=== PATIENT | female | born 2000 | race Caucasian/White ===

== ENCOUNTER 2022-03-23 12:39 | Outpatient (CLI) | payer BC, SELFPAY ==
--- NOTE | 2022-03-23 13:00 | CRLHL7_ITS ---
For Patients: As a result of the Century Cures Act, medical imaging exams and procedure reports are released immediately into your electronic medical record. You may view this report before your referring provider. If you have questions, please contact your health care provider. INDICATION: 21 year-old female. Pelvic pain with menstrual periods. TECHNIQUE: Transabdominal and transvaginal pelvic ultrasound. FINDINGS: The uterus measures 7.0 x 3.5 x 5.2 cm. Normal endometrial stripe measuring 9 mm endovaginally. Normal size ovaries without torsion or mass. The right ovary measures 3.4 x 1.8 x 2.6 cm and the left ovary measures 4.2 x 1.8 x 3.3 cm. Blood flow is documented in the ovaries both arterial and venous. Minimal free pelvic fluid likely physiologic. IMPRESSION: Normal transabdominal and transvaginal pelvic ultrasound. Dictated by Tobias Mcnulty MD @ 03/23/2022 2:20:45 PM (Electronically Signed)
== END 2022-03-23 12:40 | disposition home or self-care (01) ==
LOC: US 12:42
PROVIDERS: Visit Provider Physician Assistant
DX: R10.2 Pelvic and perineal pain (principal)
CPT/HCPCS: 76830; 76856; 93976

== ENCOUNTER 2024-05-08 07:03 | Outpatient (CLI) | payer BC, SELFPAY | END 2024-05-08 07:04 | disposition home or self-care (01) | LOC: US 07:04 | PROVIDERS: Visit Provider Advanced Practice Midwife | DX: O34.81 Maternal care for other abnormalities of pelvic organs, first trimester (principal); N83.202 Unspecified ovarian cyst, left side; Z3A.00 Weeks of gestation of pregnancy not specified | CPT/HCPCS: 76817; 83021; 86703; 86706; 86803; 86850; 86900; 86901; 87086; 87340 ==

== ENCOUNTER 2024-05-08 08:38 | Outpatient (CLI) | payer BC, SELFPAY | END 2024-05-08 08:39 | disposition home or self-care (01) | PROVIDERS: Visit Provider Advanced Practice Midwife | DX: Z34.01 Encounter for supervision of normal first pregnancy, first trimester (principal) | CPT/HCPCS: 83020; 83021; 85660; 86592; 86703; 86704; 86706; 86762; 86787; 86803; 86850; 86900; 86901; 87086; 87340 ==

== ENCOUNTER 2024-08-03 11:06 | Outpatient (CLI) | payer BC, SELFPAY ==
--- NOTE | 2024-08-03 11:15 | CRLHL7_ITS ---
For Patients: As a result of the Century Cures Act, medical imaging exams and procedure reports are released immediately into your electronic medical record. You may view this report before your referring provider. If you have questions, please contact your health care provider. OBSTETRICAL ULTRASOUND ??? ANATOMY SURVEY, 08/03/2024 INDICATION: anatomy survey. 1, para 0. CLINICAL HISTORY: SYLVIE by ultrasound: 12/23/2024 Gestational age: 19 weeks 5 days TECHNIQUE: Real-time stone-scale transabdominal imaging of the fetus was performed. PREVIOUS ULTRASOUND: 05/08/2024. FINDINGS: position: Multiple positions. Cervix: Visualized Technique: Transabdominal Length of closed cervix: 5.9 cm Placenta position: Posterior Technique: Transabdominal Placenta tip to internal os: 6.2 cm Umbilical cord: 3-vessel cord Placental insertion: Possibly velamentous Amniotic fluid: 3.7 cm SDP (greater than/equal to 2 to less than 8 cm) ANATOMY SURVEY: Observed Structures Cerebellum: Yes; 1.9 cm, 19 weeks 2 days Cisterna magna: Yes; 4.4 mm Nuchal fold: Yes; 4.5 mm Lateral ventricle: Yes; 5.7 mm CSP: Yes Midline falx: Yes Choroid plexus: Yes Spine: Yes Stomach: Yes Abdominal cord insert: Yes Urinary bladder: Yes Kidneys: Yes Diaphragm: Yes Nose/lips: Yes Orbital view: Yes Profile: Yes Upper extremities: Yes Lower extremities: Yes Hands: Yes Feet: Yes 4-chamber heart: Yes LVOT: Yes RVOT: Yes 3VV: Yes 3VTV: Yes BIOMETRY BPD: 4.3 cm, 19 weeks 0 days, 22% HC: 17.0 cm, 19 weeks 4 days, 37% AC: 15.7 cm, 20 weeks 6 days, 79% FL: 3.1 cm, 19 weeks 4 days, 36% FL/AC: 19.67% HC/AC ratio: 1.08 heart rate: 137 bpm age by this ultrasound: 19 weeks 4 days SYLVIE by this ultrasound: 12/24/2024 Estimated weight: 333.48 grams (0 pounds 12 ounces) Percentile by SYLVIE: 69% IMPRESSION: 1) Concordance of clinical and sonographic dating. 2) Normal anatomic survey. 3) Velamentous placental cord insertion is suggested. Follow-up recommended. HARRISON BEAR M.D. Diagnostic Radiologist [email or web address] Transcribed: 9:[address]/Dictated by: Harrison Bear MD @ 08/07/2024 5:46:00 AM (Electronically Signed)
== END 2024-08-03 11:07 | disposition home or self-care (01) ==
LOC: US 11:07
PROVIDERS: Visit Provider Midwife
DX: Z34.92 Encounter for supervision of normal pregnancy, unspecified, second trimester (principal); Z3A.19 19 weeks gestation of pregnancy
CPT/HCPCS: 76805

== ENCOUNTER 2024-08-16 12:00 | Outpatient (CLI) | payer BC, SELFPAY ==
--- NOTE | 2024-08-16 12:15 | CRLHL7_ITS ---
For Patients: As a result of the Cures Act, medical imaging exams and procedure reports are released immediately into your electronic medical record. You may view this report before your referring provider. If you have questions, please contact your health care provider. OB ULTRASOUND SYLVIE by US: . GA: 21 w, 4 d. Single. Comparison: 08/03/2024, 05/08/2024. INDICATION: Follow-up cord insertion to placenta, velamentous? TECHNIQUE: Real time grayscale imaging of the fetus was performed. Transabdominal. CERVIX: Not visualized. POSITIONING: Vertex. AMNIOTIC FLUID: 3.7 cm. SDP (N: greater than 2 x 1 cm) PLACENTA: Technique: Transabdominal. PLACENTA POSITION: Posterior. DOPPLER: heart rate: 149 bpm. IMPRESSION: The placental cord insertion is velamentous. Harrison Grant M.D. Diagnostic Radiologist [email or web address] RAMSES/km barbour/Dictated by: Harrison Grant MD @ 08/16/2024 2:17:00 PM (Electronically Signed)
== END 2024-08-16 12:01 | disposition home or self-care (01) ==
LOC: US 12:00
PROVIDERS: Visit Provider Advanced Practice Midwife
DX: O43.192 Other malformation of placenta, second trimester (principal); Z3A.21 21 weeks gestation of pregnancy
CPT/HCPCS: 76816

== ENCOUNTER 2024-10-09 11:45 | Outpatient (CLI) | payer BC, SELFPAY ==
--- NOTE | 2024-10-09 12:15 | CRLHL7_ITS ---
For Patients: As a result of the Century Cures Act, medical imaging exams and procedure reports are released immediately into your electronic medical record. You may view this report before your referring provider. If you have questions, please contact your health care provider. OB ULTRASOUND SYLVIE by US: 12/23/2024. GA: 29 w, 2 d. Single. Comparison: 08/03/2024. INDICATION: Velamentous cord insert. TECHNIQUE: Real time grayscale imaging of the fetus was performed. Transabdominal. CERVIX: Not visualized. POSITIONING: Vertex. AMNIOTIC FLUID: 3.6 cm. SDP (N: greater than 2 x 1 cm) PLACENTA: Technique: Transabdominal. PLACENTA POSITION: Fundal, posterior. DOPPLER: heart rate: 141 bpm. BIOMETRY: BPD: 7.7 cm. 31 w, 0 d, 88 percent. HC: 27.2 cm. 29 w, 5 d, 29 percent. AC: 24.4 cm. 28 w, 4 d, 25 percent. FL: 5.5 cm. 28 w, 6 d, 22 percent. FL/AC ratio: 22.35 percent. HC/AC ratio: 1.12. EFW: 1313 g. Weight: 2 lbs, 14 oz. age by this US: 29 w, 4 d. SYLVIE by this US: 12/21/2024. Percentile by SYLVIE: 26 percent. IMPRESSION: 1. Sonographic gestational age 29 weeks 4 days and sonographic due date 12/21/2024. Good correlation with dates. Normal interval growth. 2. Estimated weight 26th percentile. Abdominal circumference 25th percentile. Harrison Grant M.D. Diagnostic Radiologist [email or web address] RAMSES/km barbour/Dictated by: Harrison Grant MD @ 10/09/2024 4:01:00 PM (Electronically Signed)
== END 2024-10-09 11:46 | disposition home or self-care (01) ==
LOC: US 11:45
PROVIDERS: Visit Provider Advanced Practice Midwife
DX: O43.123 Velamentous insertion of umbilical cord, third trimester (principal); Z3A.29 29 weeks gestation of pregnancy
CPT/HCPCS: 76816; 86592; 86850; J2791

== ENCOUNTER 2024-11-02 12:53 | Outpatient (CLI) | payer BC, SELFPAY ==
--- NOTE | 2024-11-02 13:00 | CRLHL7_ITS ---
For Patients: As a result of the Century Cures Act, medical imaging exams and procedure reports are released immediately into your electronic medical record. You may view this report before your referring provider. If you have questions, please contact your health care provider. OB ULTRASOUND SYLVIE by US: 12/23/2024. GA: 32 w, 5 d. Single. Comparison: 10/09/2024, 08/16/2024, 08/03/2024. INDICATION: Growth. Velamentous cord insert. TECHNIQUE: Real time grayscale imaging of the fetus was performed. Transabdominal. CERVIX: Not visualized. POSITIONING: Vertex. AMNIOTIC FLUID: 5.0 cm. SDP (N: greater than 2 x 1 cm) PLACENTA: Technique: Transabdominal. PLACENTA POSITION: Posterior, left wall. DOPPLER: heart rate: 135 bpm. BIOMETRY: BPD: 8.6 cm. 34 w, 6 d, 92.5 percent. HC: 30.6 cm. 34 w, 0 d, 47.9 percent. AC: 29.6 cm. 33 w, 4 d, 74.7 percent. FL: 5.9 cm. 31 w, 0 d, 5.5 percent. FL/AC ratio: 20.1 percent. HC/AC ratio: 1.0. EFW: 2092 g. Weight: 4 lbs, 10 oz. age by this US: 33 w, 3 d. SYLVIE by this US: 12/18/2024. Percentile by SYLVIE: 48.5 percent. IMPRESSION: 1. Sonographic gestational age 33 weeks 3 days and sonographic due date 12/18/2024. Sonographic age is 5 days ahead of clinical age. 2. Estimated weight 49th percentile. Abdominal circumference 75th percentile. Femur length 6th percentile. Hrarison Grant M.D. Diagnostic Radiologist [email or web address] RAMSES/km barbour/Dictated by: Harrison Grant MD @ 11/02/2024 2:16:00 PM (Electronically Signed)
== END 2024-11-02 12:54 | disposition home or self-care (01) ==
LOC: US 12:53
PROVIDERS: Visit Provider Advanced Practice Midwife
DX: O43.193 Other malformation of placenta, third trimester (principal); Z3A.33 33 weeks gestation of pregnancy
CPT/HCPCS: 76816

== ENCOUNTER 2024-11-07 19:04 | Emergency (ER) | payer BC, SELFPAY ==
--- OUTSIDE RECORDS SUMMARY | 2024-11-07 19:06 | XMS_ITS | Clinical Summary ---
Author Organization [facility] [employer] [facility] Address [address] [place] [id number] Care Team Providers Care Senior Integration Developer Name Role Phone [facility] Primary Care Pro vider Allergies No known active allergies Medications metoclopramide HCl (REGLAN) 10 mg tabletIndication s:Nonintractable headache, unspecified chronicity pattern, unspecified headache type Take 1 Tablet (10 mg) by mouth every 6 hours if needed for Nausea/Vomiting (or headache). 30 Tablet 3 Active Additional Information Patient not taking.Reported on 09/14/2024 [id number] ic acid (PREPLUS;NATALCA RE PLUS) 27 mg iron- 1 mg tablet Take 1 Tablet by mouth once daily. 4 Active Active Problems Estimated Date of Delivery Comme nts Yes 12/24/2024 No known active problems Encounters Date Type Department Care Team Description 09/15/2024 Telephone [facility] [address] [phone] Jackelyn Santos Appointment 09/14/2024 1:20 PM CDT Ancillary Procedure [address] [phone] 09/14/2024 12:40 PM CDT Office Visit [facility] [address] [place] [phone] Ariana Márquez NP Ankle Pain/problem (Twisted left ankle/heard poppingsound while stepping down from a log on 09/09/24. ) 09/14/2024 Travel from Last 3 Months Social History Tobacco Use Types Packs/Day Years Used Date Smoking Tobacco: Former Cigarettes Smokeless Tobacco: Never Tobacco Cessation:Counseling Given: Not Answered Alcohol Use Standard Drinks/Week Comments Never 0 (1 standard drink = 0.6 oz pur e alcohol) Social Connections Answer Date Recorded Do you often feel lonely or isolated from those around you? 0 11/02/2023 Financial Resource Strain Answer Date R ecorded Difficulty of Paying Living Expenses 3 11/02/2023 Difficulty of Paying Living Expenses Not on file 11/02/2023 Food Insecurity Answer Date Recorded Do you worry your food will run out before you are able to buy more? 1 11/02/2023 Transportation Needs Answer Date Record ed Does lack of transportation keep you from medica l appointments? 1 11/02/2023 Does lack of transportation keep you from work, meetings or getting things that you need? 1 11/02/2023 Housing Stability Answer Date Recorded What is your housing situation today? 1 11/02/2023 Utilities Answer Date Recorded Do you have trouble paying f or utilities (for example, heat, electricity, water, phone)? 1 11/02/2023 Estimated Date of Delivery Comme nts Yes 12/24/2024 Sex and Gender Information Value Date Recorded Sex Assigned at Not on file Legal Sex Female 7:16 AM CDT Gender Identity Not on file Sexual Orientation Not on file Obstetrics History Para Term AB IAB SAB Ectopic Multiple Livin g Live Births 1 Date Outcome GA Total Labor Labor/2nd/3rd Weight Sex Type Anes PTL Mary Jo A1 A5 Name Clin Current Last Filed Vital Signs Vital Sign Reading Time Taken Comments Blood Pressure 137/77 09/14/2024 12:48 PM CDT Pulse 82 09/14/2024 12:48 PM CDT Temperature 36.1 C (97 F) 09/14/2024 12:48 PM CDT Respiratory Rate 16 09/14/2024 12:4 8 PM CDT Oxygen Saturation 98% 09/14/2024 12: 48 PM CDT Inhaled Oxygen Concentration - - Weight 84.3 kg (185 lb 14.4 oz) 025 12:48 PM CDT Height 165.1 cm (5' 5) 06/25/2022 8:01 AM CDT Body Mass Index - - Plan of Treatment Health Maintenance Due Date Last Done Comments Tetanus booster 2012 Depression screening for age 12+ 2013 HIV for age 15-65 2016 HPV series for age 9-45 (1 - 3-dose series) 2016 Chlamydia for age 16-24 2017 BMI (ht and wt on same day) for age 18+ 08/31/2019 Hepatitis C screening for ag e 18-79 08/31/2019 Hepatitis B series for 19+ ( 1 of 3 - 19+ 3-dose series) 2020 Pap test for age 21-65 2022 COVID-19 vaccine series ( - season) 2024 Influenza Vaccine (#1) 2024 RSV vaccine for adults or (1 - Risk 1-dose series) 10/30/2024 Pneumococcal series for age 6-49 Aged Out No longer eligible based on patient's age to complete this topic Procedures Procedure Name Priority Date/Time Associated Diagnosis Comments AMB PROC DOC ORTHOPEDIC INJURY Routine 09/14/2024 6:20 PM CDT Closed nondisplaced fracture of neck of left talus, initial encounter XR ANKLE 3 VIEWS LEFT STAT 09/14/2024 1:30 PM CDT Acute left ankle pain from Last 3 Months Results * Ortho Injury (09/14/2024 6:20 PM CDT) Narrative Ariana Márquez NP - 09/14/2024 6:20 PM CDT Ariana Márquez NP 09/14/2024 6:23 PM Ortho Injury Date/Time: 09/14/2024 6:20 PM Performed by: Ariana Márquez NP Authorized by: Ariana Márquez NP Injury location: ankle Location details: left ankle Injury type: fracture (There is a 2 mm focus of ossification adjacent to but separate from the talar neck on the lateral view which may represent an avulsion fracture fragment) Pre-procedure distal perfusion: normal Pre-procedure neurological function: normal Pre-procedure range of motion comment: Full, painful Splint type: short leg (CAM boot) Post-procedure distal perfusion: normal Patient tolerance: patient tolerated the procedure well with no immediate complications us Ariana Márquez ASSISTANT FRONT DESK MANAGER PROCEDURE ORD Final Result * XR ANKLE 3 VIEWS LEFT (09/14/2024 1:30 PM CDT) Anatomical Region Laterality Modality ANKLES, ANKLE L Computed Radiogr aphy 09/14/2024 1:36 PM CDT Impressions 09/14/2024 1:36 PM CDT There is a 2 mm focus of ossification adjacent to but separate from the talar neck on the lateral view which may represent an avulsion fracture fragment. Correlation with focal point tenderness on exam is recommended. Anterolateral periarticular soft tissue swelling. Dictated by Rafita Pop MD @ 09/14/2024 1:36:09 PM (Electronically Signed) Narrative 09/14/2024 1:36 PM CDT For Patients: As a result of the Cures Act, medical imaging exams and procedure reports are released immediately into your electronic medical record. You may view this report before your referring provider. If you have questions, please contact your health care provider. INDICATION: Acute pain. COMPARISON: None available. TECHNIQUE: Three views of the left ankle. FINDINGS: Mineralization: Normal. Alignment: Normal. Bones and Joints: There is a 2 mm focus of ossification adjacent to but separate from the talar neck on the lateral view which may represent an avulsion fracture fragment. Correlation with focal point tenderness on exam is recommended. Soft Tissues: Anterolateral periarticular soft tissue swelling. Procedure Note Rafita Pop MD - 09/14/2024 For Patients: As a result of the Cures Act, medical imagingexams and procedure reports are released immediately into your electronicmedical record. You may view this report before your referring provider.If you have questions, please contact your health care provider. INDICATION: Acute pain. COMPARISON: None available. TECHNIQUE: Three views of the left ankle. FINDINGS: Mineralization: Normal. Alignment: Normal. Bones and Joints: There is a 2 mm focus of ossification adjacent to butseparate from the talar neck on the lateral view which may represent anavulsion fracture fragment. Correlation with focal point tenderness onexam is recommended. Soft Tissues: Anterolateral periarticular soft tissue swelling. IMPRESSION: There is a 2 mm focus of ossification adjacent to but separate from thetalar neck on the lateral view which may represent an avulsion fracturefragment. Correlation with focal point tenderness on exam is recommended.Anterolateral periarticular soft tissue swelling. Dictated by Rafita Pop MD @ 09/14/2024 1:36:09 PM (Electronically Signed) Ariana Márquez NP GENERAL IMAGING Final Result from Last 3 [id number] [facility] Care Teams Senior Integration Developer Relationship Specialty Start Date End Date Clinic, [address] [place] [address] PCP - General 06/25/22
[2024-11-07 19:15] VITALS: BP 128/83; PULSE 117; RESP 20; TEMP 37; O2SAT 98; BMI 32.4
--- NOTE | 2024-11-07 20:02 | ED_ITS ---
HPI - General Adult General Date Seen: 11/07/24 Chief complaint: Lower Extremity Swelling Stated complaint: L leg swelling - 32 weeks Time Seen by Provider: 11/07/24 19:57 History of Present Illness HPI narrative: 24-year-old female who is 33 weeks presenting to the ER today with left leg swelling that began this afternoon. She presents to the ER today with her . She says that her has been going well so far. She has n ot had any trouble with the baby growing. No concern for peripheral edema, preeclampsia, or other complications. She has been feeling the baby kicking normally lately. No vaginal bleeding or fluid leakage. She has been getting her care through the [facility]. Beginning this afternoon she was out for walk and she started to feel like her left leg was painful, stretch tight, and swollen. It was more swollen than her right leg. Eyelid she has been resting for a little while it is actually doing better but is still feels little bit swollen and tight. She does not have any known injury. She has not noticed any bruising. No rash. She is not having any chest pain or shortness of breath. No abdominal pain. She has been having a little bit of pain in her left hip and lower Potter left low back for a couple of days. Related Data Previous Rx's ?Medication ?Instructions ?Recorded ondansetron 4 mg disintegrating 4 mg PO Q8H PRN nausea and 05/23/24 tablet vomiting #30 tabs ondansetron HCl 4 mg tablet 4 mg PO Q6H PRN nausea and 06/05/24 vomiting #30 tabs enoxaparin 80 mg/0.8 mL 80 mg (0.8 mL) subcut Q12H 7 days 11/07/24 subcutaneous syringe (Lovenox) #11.2 mL Allergies Allergy/AdvReac Type Severity Reaction Status Date / Time No Known Drug Allergies Allergy Verified 11/02/24 13:26 [facility] Medical History (Updated 11/07/24 @ 23:12 by Salvador Triplett MD) Depression ?F32.A - Depression, unspecified (ICD-10) Pelvic pain ?R10.2 - Pelvic and perineal pain (ICD-10) Dysmenorrhea ?N94.6 - Dysmenorrhea, unspecified (ICD-10) 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 ? Education: High School ? 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 works at [employer] Lives with: Chandler Pets: 3 Cats, Chandler changes the litter box Abuse: Denies past ? Unable to assess current, partner present? ? Special Diet: Denies? ? Ok with a blood transfusion: yes? ? Culture or mormon beliefs: denies? RISK FACTORS? ? Exercise Times/wk: 5 days week cardio and strength training? ? Depression/Anxiety: yes depression? Previous Treatments was on medications for about a year ? Therapy has done in past Feels mood is stable at this time. MYLES: 3 PHQ 9: 1? ? Seat Belt Use: Routinely ? Smoking: Denies past/present? ?Smoked 2 years, 3 cigarettes per day and vaping Alcohol/day: Denies while ? ? when not 4-5 a month Caffeine: Coffee before 1-2 cups? ? Drug Use: Denies past/present? ? THC use in past, quit about 2 years ago What is your current living situation?: I presently have a place to live Problems where you live: no known problems In the past 12 months, utilities in danger of being shut off: no In past 12 months, lack of transportation kept you from medical appts, meetings, work, or getting things needed for daily living: no In the past 12 mos, have been you worried that your food would run out before you had money to buy more?: never true In the past 12 mos, the food you bought just didn't last and you didn't have money to buy more?: never true Smoking Status: Never smoker How often does anyone, including family, friends and others, physically hurt you : never How often does anyone, including family, friends and others, insult or talk down to you: never How often does anyone, including family, friends and others, threaten you with harm: never How often does anyone, including family, friends and others, scream or curse at you: never Exam Narrative: Exam Narrative: Constitutional: Appears well-developed and well-nourished. Alert. Conversant. Non toxic. HENT: Head: Atraumatic. Nose: Nose normal. Mouth/Throat: Oral mucosa is clear and moist. no trismus. Pharynx normal. Eyes: Conjunctivae normal. EOM normal. Pupils equal, round, and reactive to light. No scleral icterus. Neck: Normal range of motion. Neck supple. No tracheal deviation present. Cardiovascular: Normal rate, regular rhythm. No gallop. No friction rub. No murmur heard. Symmetric radial artery pulses Pulmonary/Chest: Effort normal. No stridor. No respiratory distress. No wheezes. No rales. No rhonchi . No tenderness. Abdominal: Soft. Bowel sounds normal. No distension. Nontender gravid uterus with fundus well above the umbilicus consistent with dates.. No tenderness. No rebound. No guarding. Musculoskeletal: RUE: Normal range of motion. No tenderness. No deformity LUE: Normal range of motion. No tenderness. No deformity RLE: Normal range of motion. No edema. No tenderness. No deformity LLE: Normal range of motion. Trace edema. No tenderness. No deformity Lymph: No inguinal adenopathy. Neurological: Alert and oriented to person, place, and time. Normal strength. CN II-VII intact. No sensory deficit. GCS eye subscore is 4. GCS verbal subscore is 5. GCS motor subscore is 6. Normal coordination Sensory: Normal light touch sensation bilaterally on the anteromedial thigh (L3), medial malleolus (L4), dorsal first web space (L5), lateral malleolus (S1). Strength: 5/5 strength hip flexors (L3) on the rig ht and left 5/5 strength in the quadriceps (L4) on t he right and left 5/5 strength in the tibialis anterior 5/5 strength in the EHL (L5) on the righ t and left 5/5 strength in the gastrocnemius (S1) o n the right and left 5/5 strength in the hamstring on the rig ht and left Negative straight leg raise bilaterally. Skin: Skin is warm and dry. No redness, cyanosis, bruising or other rash. No rash noted. No pallor. Normal capillary refill. Psychiatric: Normal mood. Normal affect. Const: Vital Signs, click to edit/add: Vital Signs - 24 hr 11/07/24 19:15 Temperature 98.6 F Pulse Rate [Pulse Oximeter] 117 H Respiratory Rate 20 Blood Pressure [Ri ght Upper Arm] 128/83 Pulse Oximetry 98 Course Vital Signs Vital signs: Initial Vital Signs Temperature 98.6 F 11/07/24 19:15 Temperature Source Temporal Artery Scan 11/07/24 19:15 Pulse Rate 117 H 11/07/24 19:15 Respiratory Rate 20 11/07/24 19:15 Blood Pressure 128/83 11/07/24 19:15 Blood Pressure Mean 98 11/07/24 19:15 Blood Pressure Position Sitting 11/07/24 19:15 Pulse Oximetry 98 11/07/24 19:15 Vital Signs Temperature 98.6 F 11/07/24 19:15 Pulse Rate 117 H 11/07/24 19:15 Respiratory Rate 20 11/07/24 19:15 Blood Pressure 128/83 11/07/24 19:15 Pulse Oximetry 98 11/07/24 19:15 Temperature 98.6 F 11/07/24 19:15 Pulse Rate 117 H 11/07/24 19:15 Respiratory Rate 20 11/07/24 19:15 Blood Pressure 128/83 11/07/24 19:15 Pulse Oximetry 98 11/07/24 19:15 Medical Decision Making [facility] Narrative Medical decision making narrative: This is a previously healthy 24-year-old female who is 33 weeks presenting to the ER today with atraumatic left lower extremity swelling and discomfort that began this evening. Differential includes DVT, compression from growing uterus, peripheral edema from eclampsia, cellulitis, trauma, among others. Primary differential is to determine whether not this is a DVT given the asymmetric/unilateral swelling or if this is simply due to urine compression. Venous ultrasound is suggestive for DVT in the proximal left lower extremity. Discussed by phone with the radiologist and reviewed in person with the electrical engineering technician who did ultrasound. Discussed with our OB colleague, Dr. Chang. She would agree with the patient starting on Lovenox 1 milligram/kilogram b.i.d based on pre weight.. She does not feel the patient needs stress testing, admission, further lab workup tonight. First dose of Lovenox administered here in the ER. Patient reports pre weight of around 170 which correlates to about 77 kg. Will start her on 80 milligram Lovenox b.i.d.. Prescription for a 1 week supply. Discussed that she needs close outpatient follow-up with the Ob clinic to discuss her DVT, and make arrangements for anticoagulation going forward. She will need to continue on anticoagulation until the end of and likely after for couple of months. Duration to be determined by her follow-up with OB. She is not having any chest pain or shortness of breath suggest PE. I do not triage heart rate is elevated but that is likely due to combination of being 3rd trimester and having anxiety. Oxygen saturations are normal on room air. Will hold off on CT tPA given the very low likelihood of actual PE and the risk of radiation exposure at this stage of . We are going to treat with anticoagulation because of DVT, regardless of the CT findings. I do not see any evidence to necessitate transfer for thrombectomy or admission of IV thrombolytic. Risk of bleeding reviewed. However at this point, we feel of the risk of untreated DVT leading to PE or other complications clearly outweighs the risk. Precautions for return to the ER reviewed. Questions answered. Imaging Data US venous LLE: Attestation: I have reviewed the pertinent imaging results. Radiologist's impression: IMPRESSION: Findings concerning for deep venous thrombosis within the left external iliac vein extending to the left common femoral vein. The lower IVC appears patent. Findings discussed with Dr. Triplett at 8:54 PM PST on 11/07/2024. Discharge Plan Discharge Clinical Impression: DVT (deep vein thrombosis) in Patient Disposition: Home, Self-Care Condition: Stable Instructions: Deep Vein Thrombosis (ED) Additional Instructions: As we discussed, please take your next dose of the blood thinning medication (Lovenox) tomorrow morning and continue it twice daily every day until your OB says it is safe to stop. Call your OB clinic tomorrow morning to arrange an ER follow-up visit within 1-2 days. Remember, come back to the ER any time if you have worsening symptoms such as increasing pain or swelling in your leg, chest pain or trouble breathing, vaginal bleeding, uterine cramping, or any problems. Prescriptions: New enoxaparin [Lovenox] 80 mg/0.8 mL syringe 80 mg subcut Q12H 7 Days Qty: 11.2 0RF No Action ondansetron HCl 4 mg tablet 4 mg PO Q6H PRN (Reason: nausea and vomiting) Qty: 30 1RF ondansetron 4 mg tablet,disintegrating 4 mg PO Q8H PRN (Reason: nausea and vomiting) Qty: 30 2RF Follow Up/Referrals: Provider,Not a Local [Primary Care Provider, Family Practice] Stand Alone Forms: MyHealth Info Instructions
--- NOTE | 2024-11-07 20:03 | CRLHL7_ITS ---
For Patients: As a result of the Century Cures Act, medical imaging exams and procedure reports are released immediately into your electronic medical record. You may view this report before your referring provider. If you have questions, please contact your health care provider. INDICATION: Edema in the left lower extremity, 3rd trimester . TECHNIQUE: Ultrasound venous duplex lower left extremity. Compression venous exam was performed using stone-scale, color Doppler, and spectral Doppler analysis. COMPARISON: None. FINDINGS: Deep veins: There is no color Doppler flow within the left common femoral and left external iliac vein. Normal vascular flow with compressibility is visualized within the superficial femoral, popliteal, peroneal, and posterior tibial veins on the left. Patent right common femoral vein. The lower IVC is patent. Superficial veins: Greater saphenous vein is fully compressible. No popliteal cyst. IMPRESSION: Findings concerning for deep venous thrombosis within the left external iliac vein extending to the left common femoral vein. The lower IVC appears patent. Findings discussed with Dr. Triplett at 8:54 PM PST on 11/07/2024. Dictated by Salvador Collins MD @ 11/07/2024 10:51:33 PM (Electronically Signed)
[2024-11-07] MEDS: ENOXAPARIN 80 MG/0.8 ML INJ SUBCUT (23:34)
== END 2024-11-07 23:45 | disposition home or self-care (01) ==
PROVIDERS: Emergency Provider Emergency Medicine
DX: I82.422 Acute embolism and thrombosis of left iliac vein (principal); Z3A.33 33 weeks gestation of pregnancy
CPT/HCPCS: 93971; 99282; 99283; J1650

== ENCOUNTER 2024-11-08 10:30 | Outpatient (CLI) | payer BC, SELFPAY ==
--- OUTSIDE RECORDS SUMMARY | 2024-11-08 10:06 | XMS_ITS | Clinical Summary ---
Author Organization [facility] [employer] [facility] Address [address] [place] [id number] Care Team Providers Care Force Dispatcher Name Role Phone [facility], [facility] Pro vider Allergies No known active allergies Medications metoclopramide HCl (REGLAN) 10 mg tabletIndication s:Nonintractable headache, unspecified chronicity pattern, unspecified headache type Take 1 Tablet (10 mg) by mouth every 6 hours if needed for Nausea/Vomiting (or headache). 30 Tablet 3 Active Additional Information Patient not taking.Reported on 09/14/2024 [id number] ic acid (PREPLUS;NATALCA RE PLUS) 27 mg iron- 1 mg tablet Take 1 Tablet by mouth once daily. 4 Active Active Problems Estimated Date of Delivery Comme nts Yes 12/24/2024 No known active problems Encounters Date Type Department Care Team Description 09/15/2024 Telephone [facility] Orthopedics [facility] [address] [phone] Jackelyn Santos Appointment 09/14/2024 1:20 PM CDT Ancillary Procedure [address] [phone] 09/14/2024 12:40 PM CDT Office Visit [facility] [address] [place] [phone] Ariana Márquez NP Ankle Pain/problem (Twisted [...] with no immediate complications us Ariana Márquez CUSTOMER SUPPORT ANALYST PROCEDURE ORD Final Result * XR ANKLE [...] Final Result from Last [place] [id number] [facility] Care Teams Force Dispatcher Relationship Specialty Start Date End Date Clinic, [address] [place] [address] PCP - General 06/25/22
[2024-11-08 10:15] VITALS: BP 128/82; PULSE 98; RESP 18; TEMP 36.2; O2SAT 100
[2024-11-08] MEDS: ENOXAPARIN 80 MG/0.8 ML INJ SUBCUT (10:46)
== END 2024-11-08 11:00 | disposition home or self-care (01) ==
LOC: EDOUT 10:39
PROVIDERS: Visit Provider Family Medicine
DX: O22.33 Deep phlebothrombosis in pregnancy, third trimester (principal); Z3A.33 33 weeks gestation of pregnancy
CPT/HCPCS: 80307; J1650

== ENCOUNTER 2024-11-09 17:25 | Emergency (ER) | payer BC, SELFPAY ==
--- OUTSIDE RECORDS SUMMARY | 2024-11-09 17:27 | XMS_ITS | Clinical Summary ---
Author Organization [facility] [employer] [facility] Address [address] [place] [id number] Care Team Providers Care Coffee Weigher Name Role Phone [facility], [facility] Primary Care Pro vider Allergies No known active allergies Medications metoclopramide HCl (REGLAN) 10 mg tabletIndication s:Nonintractable headache, unspecified chronicity pattern, unspecified headache type Take 1 Tablet (10 mg) by mouth every 6 hours if needed for Nausea/Vomiting (or headache). 30 Tablet 3 Active Additional Information Patient not taking.Reported on 09/14/2024 ocngndr-[id number] ic acid (PREPLUS;NATALCA RE PLUS) 27 mg iron- 1 mg tablet Take 1 Tablet by mouth once daily. 4 Active Active Problems Estimated Date of Delivery Comme nts Yes 12/24/2024 No known active problems Encounters Date Type Department Care Team Description 09/15/2024 Telephone [facility] Orthopedics [facility] [address] [phone] Jackelyn Santos Appointment 09/14/2024 1:20 PM CDT Ancillary Procedure [address] [phone] 09/14/2024 12:40 PM CDT Office Visit [facility] [address] [place] [phone] Ariana Márquez NP Ankle Pain/problem (Twisted [...] with no immediate complications us Ariana Márquez BIOPROCESSING MANUFACTURING TECHNICIAN PROCEDURE ORD Final Result * XR ANKLE [...] Final Result from Last 3 [place] [id number] [facility] Care Teams Coffee Weigher Relationship Specialty Start Date End Date Clinic, [address] [place] [address] PCP - General 06/25/22
[2024-11-09 17:57] VITALS: BP 136/94; PULSE 115; RESP 18; TEMP 37.4; O2SAT 98; BMI 33.3
--- NOTE | 2024-11-09 19:13 | ED_ITS ---
HPI - General Adult General Date Seen: 11/09/24 Chief complaint: Extremity Pain/Injury, Lower Stated complaint: blood clot pain, 33 wks preg Time Seen by Provider: 11/09/24 18:54 History of Present Illness HPI narrative: Patient is a 24-year-old seen here yesterday and diagnosed with a DVT on the left side in the external iliac and common femoral. She was started on Lovenox which she has been taking as prescribed. She has not been taking anything for pain. She says her discharge instructions said she should come back if the pain was increasing, and she thought it felt a little bit more painful tonight, particularly when she walks. Therefore, she came back to be rechecked. She has not noted any worsening swelling or redness, she has not had any chest pain shortness of breath. She was little tachycardic when she was here yesterday and she remains a little tachycardic today. She has been eating and drinking well. This is her 1st , she does not have prior history of DVT. She does not smoke. She is not having any abdominal pain, headache, or other symptoms. Related Data Previous Rx's ?Medication ?Instructions ?Recorded ondansetron 4 mg disintegrating 4 mg PO Q8H PRN nausea and 05/23/24 tablet vomiting #30 tabs ondansetron HCl 4 mg tablet 4 mg PO Q6H PRN nausea and 06/05/24 vomiting #30 tabs enoxaparin 80 mg/0.8 mL 80 mg (0.8 mL) subcut Q12H 6 weeks 11/08/24 subcutaneous syringe (Lovenox) #67.2 mL hydrocodone 5 mg-acetaminophen 325 1 tab PO Q8H PRN pa in #10 tabs 11/09/24 mg tablet Allergies Allergy/AdvReac Type Severity Reaction Status Date / Time No Known Drug Allergies Allergy Verified 11/08/24 08:34 Review of Systems Status of ROS: Reports: 10 or more systems reviewed and unremarkable except as noted in History and below [facility] Medical History (Updated 11/09/24 @ 19:33 by Milagro Lewis MD) Depression ?F32.A - Depression, unspecified (ICD-10) Pelvic pain ?R10.2 - Pelvic and perineal pain (ICD-10) Dysmenorrhea ?N94.6 - Dysmenorrhea, unspecified (ICD-10) 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 ? Education: High School ? 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 works at [email or web address] Lives with: Chandler Pets: 3 Cats, Chandler changes the litter box Abuse: Denies past ? Unable to assess current, partner present? ? Special Diet: Denies? ? Ok with a blood transfusion: yes? ? Culture or taoism beliefs: denies? RISK FACTORS? ? Exercise Times/wk: 5 days week cardio and strength training? ? Depression/Anxiety: yes depression? Previous Treatments was on medications for about a year ? Therapy has done in past Feels mood is stable at this time. MYLES: 3 PHQ 9: 1? ? Seat Belt Use: Routinely ? Smoking: Denies past/present? ?Smoked 2 years, 3 cigarettes per day and vaping Alcohol/day: Denies while ? ? when not 4-5 a month Caffeine: Coffee before 1-2 cups? ? Drug Use: Denies past/present? ? THC use in past, quit about 2 years ago What is your current living situation?: I presently have a place to live Problems where you live: no known problems In the past 12 months, utilities in danger of being shut off: no In past 12 months, lack of transportation kept you from medical appts, meetings, work, or getting things needed for daily living: no In the past 12 mos, have been you worried that your food would run out before you had money to buy more?: never true In the past 12 mos, the food you bought just didn't last and you didn't have money to buy more?: never true Smoking Status: Never smoker How often does anyone, including family, friends and others, physically hurt you : never How often does anyone, including family, friends and others, insult or talk down to you: never How often does anyone, including family, friends and others, threaten you with harm: never How often does anyone, including family, friends and others, scream or curse at you: never Exam Narrative: Exam Narrative: Vital signs reviewed In general, alert, nontoxic young woman. She looks comfortable. Head: Normocephalic, atraumatic. Eyes: Sclera clear. Pupils equal and reactive. ENT: Mucous membranes moist. Neck: Supple without adenopathy. Heart: Regular rate and rhythm without murmur. Lungs: Clear. No increased work of breathing, crackles or wheezes. Abdomen: Gravid, nontender. Extremities: She has some edema on the left which is mild. She has a little bit of tenderness over the area of her groin and upper thigh. I do not see any erythema, there is no fluctuance, no induration. Lower leg is normal. Pulses are intact. Skin is warm and dry without any changes. Neurologic: Alert, conversant. Speech fluent, face symmetric. Moves all extremities equally. Skin: Warm, dry well perfused. Affect: Normal. Const: Vital Signs, click to edit/add: Vital Signs - 24 hr 11/09/24 17:57 11/09/24 19:25 Temperature 99.3 F Pulse Rate [Pulse Oximeter] 115 H 98 Respiratory Rate 18 16 Blood Pressure [Ri ght Upper Arm] 136/94 H 123/76 Pulse Oximetry 98 97 Oxygen Delivery Me thod Room Air Room Air Course Course ED Course: I reviewed her ultrasound from yesterday, discussed this briefly with OB as well. 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 Ranjith Mejia does not know her well, but did hear some about her. Her initial blood pressure was a little elevated at 134/94, but a recheck is normal. She does not have any symptoms suggestive of preeclampsia. Regarding her leg, I do not see anything concerning on exam. She is being appropriately treated with Lovenox, and at this time I think a repeat ultrasound would be of little value. She does not have any symptoms to suggest PE. She was a little bit tachycardic on arrival, but not hypoxic or otherwise symptomatic, and repeat pulse was 98. I think is reasonable to discharge her home without additional workup today. I did recommend at least trying Tylenol, and then we talked about the risks and benefits of a stronger pain medication such as hydrocodone at this point . Discussed that if she were to deliver in the next few days while ta george a narcotic, this could cause some respiratory depression in the baby possibly necessitating some mild resuscitation, but overall given that the risk of her going into labor in the next few days is low, I think it is reasonable if needed to use hydrocodone for a day or 2. I will prescribe some of that for her, did suggest that she start with Tylenol and see if that is adequate. Discussed reasons to return such as significantly increasing swelling or redness in leg or other color changes, chest pain, shortness of breath, fainting or other respiratory symptoms. Otherwise, follow-up in OB Clinic as previously planned. Vital Signs Vital signs: Initial Vital Signs Temperature 99.3 F 11/09/24 17:57 Temperature Source Temporal Artery Scan 11/09/24 17:57 Pulse Rate 115 H 11/09/24 17:57 Respiratory Rate 18 11/09/24 17:57 Blood Pressure 136/94 H 11/09/24 17:57 Blood Pressure Mean 108 H 11/09/24 17:57 Blood Pressure Position Sitting 11/09/24 17:57 Pulse Oximetry 98 11/09/24 17:57 Oxygen Delivery Method Room Air 11/09/24 17:57 Vital Signs Temperature 99.3 F 11/09/24 17:57 Pulse Rate 115 H 11/09/24 17:57 Respiratory Rate 18 11/09/24 17:57 Blood Pressure 136/94 H 11/09/24 17:57 Pulse Oximetry 98 11/09/24 17:57 Oxygen Delivery Method Room Air 11/09/24 17:57 Temperature 99.3 F 11/09/24 17:57 Pulse Rate 98 11/09/24 19:25 Respiratory Rate 16 11/09/24 19:25 Blood Pressure 123/76 11/09/24 19:25 Pulse Oximetry 97 11/09/24 19:25 Oxygen Delivery Method Room Air 11/09/24 19:25 Discharge Plan Discharge Clinical Impression: DVT (deep vein thrombosis) in Patient Disposition: Home, Self-Care Condition: Stable Instructions: Deep Vein Thrombosis (ED) Additional Instructions: Your exam today does not show any concerning findings. You have pain in the areas where we know you have clot, so this is not unexpected. Things to watch for would be significantly worsening swelling, significant redness, or other discoloration of your leg. Likewise, significant chest pain or difficulty breathing, fainting, should also prompt a recheck. Otherwise, you can certainly try Tylenol and see if that helps with pain. I am prescribing some [place] as well. This is Tylenol combined with hydrocodone which is a narcotic. As we discussed, narcotics around term can potentially cause decreased respirations in the , potentially necessitating some minor resuscitation after delivery. However, at 33 weeks and with a planned short-term use of these meds, I do think it is reasonable to use hydrocodone if you need it particularly to make sure that you are getting adequate sleep. Otherwise, follow-up as planned in OB Clinic. Prescriptions: New hydrocodone-acetaminophen 5-325 mg tablet 1 tab PO Q8H PRN (Reason: pain) Qty: 10 0RF No Action enoxaparin [Lovenox] 80 mg/0.8 mL syringe 80 mg subcut Q12H 42 Days Qty: 67.2 0RF ondansetron HCl 4 mg tablet 4 mg PO Q6H PRN (Reason: nausea and vomiting) Qty: 30 1RF ondansetron 4 mg tablet,disintegrating 4 mg PO Q8H PRN (Reason: nausea and vomiting) Qty: 30 2RF Follow Up/Referrals: Provider,Not a Local [Primary Care Provider, Family Practice] Stand Alone Forms: Player[employer]uel Info Instructions
[2024-11-09 19:25] VITALS: BP 123/76; PULSE 98; RESP 16; O2SAT 97
== END 2024-11-09 20:05 | disposition home or self-care (01) ==
PROVIDERS: Emergency Provider Emergency Medicine
DX: I82.522 Chronic embolism and thrombosis of left iliac vein (principal); I82.512 Chronic embolism and thrombosis of left femoral vein; Z3A.33 33 weeks gestation of pregnancy
CPT/HCPCS: 99283

== ENCOUNTER 2024-11-30 08:09 | Outpatient (CLI) | payer BC, SELFPAY ==
--- NOTE | 2024-11-30 08:15 | CRLHL7_ITS ---
For Patients: As a result of the Century Cures Act, medical imaging exams and procedure reports are released immediately into your electronic medical record. You may view this report before your referring provider. If you have questions, please contact your health care provider. OB ULTRASOUND SYLVIE by US: 12/23/2024. GA: 36 w, 5 d. Single. Comparison: 11/02/2024, 10/09/2024, 08/16/2024. INDICATION: Velamentous cord insertion. TECHNIQUE: Real time grayscale imaging of the fetus was performed. Transabdominal. CERVIX: Not visualized. POSITIONING: Vertex. AMNIOTIC FLUID: 5.3 cm. SDP (N: greater than 2 x 1 cm) BIOPHYSICAL PROFILE: 2: Gross body movements 2: tone 2: Respiratory activity 2: Amniotic fluid SDP (N: greater than 2 x 1 cm) 10/06: Total score PLACENTA: Technique: Transabdominal. PLACENTA POSITION: Fundal. DOPPLER: heart rate: 132 bpm. BIOMETRY: BPD: 9 cm. 36 w, 3 d, 55 percent. HC: 31.8 cm. 35 w, 6 d, 9 percent. AC: 31.7 cm. 35 w, 5 d, 32 percent. FL: 6.8 cm. 35 w, 0 d, 11 percent. FL/AC ratio: 21.46 percent. HC/AC ratio: 1.00. EFW: 2713 g. Weight: 6 lbs, 0 oz. age by this US: 35 w, 5 d. SYLVIE by this US: 12/30/2024. Percentile by SYLVIE: 25 percent. IMPRESSION: 1. Normal biophysical profile score 8/8. 2. Sonographic gestational age 35 weeks 5 days and sonographic due date 12/30/2024. Sonographic age is one week behind the clinical age. 3. Estimated weight 25th percentile. Abdominal circumference 32nd percentile. Harrison Grant M.D. Diagnostic Radiologist [email or web address] RAMSES/km barbour/Dictated by: Harrison Grant MD @ 11/30/2024 9:46:00 AM (Electronically Signed)
== END 2024-11-30 08:10 | disposition home or self-care (01) ==
LOC: US 08:09
PROVIDERS: Visit Provider Advanced Practice Midwife
DX: O43.123 Velamentous insertion of umbilical cord, third trimester (principal); O36.5930 Maternal care for other known or suspected poor fetal growth, third trimester, not applicable or unspecified; Z3A.36 36 weeks gestation of pregnancy; Z34.93 Encounter for supervision of normal pregnancy, unspecified, third trimester; O09.93 Supervision of high risk pregnancy, unspecified, third trimester; O22.30 Deep phlebothrombosis in pregnancy, unspecified trimester; F32.A Depression, unspecified
CPT/HCPCS: 76816; 76819

== ENCOUNTER 2024-11-30 09:40 | Outpatient (CLI) | payer BC, SELFPAY | END 2024-11-30 09:41 | disposition home or self-care (01) | LOC: NFLDREF 12-14 01:38 | PROVIDERS: Visit Provider Advanced Practice Midwife | DX: Z34.93 Encounter for supervision of normal pregnancy, unspecified, third trimester (principal) | CPT/HCPCS: 87081; 87653 ==

== ENCOUNTER 2025-02-08 23:10 | Emergency (ER) | payer BC, SELFPAY ==
--- OUTSIDE RECORDS SUMMARY | 2024-12-27 08:15 | XMS_ITS | Encounter Summary ---
Author Organization [facility] Address [address] [place] [address] Care Team Providers Care Senior Sql Server Database Developer Name Role Phone Unavailable Primary Care Provider Unavailabl e Reason for Visit * ReasonCommentsNST/BPP Visit * Outpatient (Routine) - ClosedSpecialtyDiagnoses / ProceduresReferred By ContactReferred To Contact Diagnoses High Risk (HCC) Velamentous Insertion Of Umbilical Cord Unspecified Trimester (HCC) Procedures nonstress test - schofield Milagro Hayes CNM [address] [place] [phone] Phone: tel: fax: [facility] Referral IDStatusReasonStart DateExpiration DateVisits RequestedVisits [id number] Encounter Details DateTypeDepartmentCare Team (Latest Contact Info)Ohgvpvnrtym34/29/2025 9:15 [facility] in [place], [place] [address] [place] [phone] Milagro Hayes CNM [address] [place] [phone] Joan Orosco R.N. [address] [place] [phone] High Risk (HCC); Velamentous Insertion Of Umbilical Cord Unspecified Trimester (HCC) Social History Tobacco UseTypesPacks/DayYears UsedDateSmoking Tobacco: ItdjhzJwwldmueig0Ekye: 09/29/2022Smokeless Tobacco: NeverAlcohol UseStandard Drinks/WeekCommentsNot Currently0 (1 standard drink = 0.6 oz pure alcohol)Humiliation, Afraid, Rape, and Kick questionnaireAnswerDate RecordedWithin the last year, have you been afraid of your partner or ex-partner?Patient unable to obggii8712/04/2024Within the last year, have you been humiliated or emotionally abused in other ways by your partner or ex-partner?Patient unable to xgcbet2212/04/2024Within the last year, have you been kicked, hit, slapped, or otherwise physically hurt by your partner or ex-partner?Patient unable to cfswqc2912/04/2024Within the last year, have you been raped or forced to have any kind of sexual activity by your part ner or ex-partner?Patient unable to xueyah5712/04/2024Hunger Vital SignAnswerDate RecordedWithin the past 12 months, you worried that your food would run out before you got the money to buymore.Never true12/04/2024Within the past 12 months, the food you bought just didn't last and you didn't have money to get more.Never true12/04/2024PRAPARE - TransportationAnswerDate RecordedIn the past 12 months, has lack of transportation kept you from medical appointments or from getting medications?No12/04/2024In the past 12 months, has lack of transportation kept you from meetings, work, or from getting things needed for daily living?No12/04/2024HC UtilitiesAnswerDate RecordedIn the past 12 months has the [employer], gas, oil, or water company threatened to shut off services in your home?No12/04/2024Postpartum DepressionAnswerDate RecordedPHQ-9 Total Score (max 27)Housing StabilityAnswerDate RecordedWhat is your living situation today?I have a steady place to live12/04/2024CommentsYesSex and Gender InformationValueDate RecordedSex Assigned at FbdvpVjxxnu05/17/2025 4:09 PM CSTLegal QcnDvifwt04/17/2025 4:07 PM CSTGender YpaanviaPznznl78/17/2025 4:09 PM CSTSexual ZxuogkzriujJsjhhxuw08/17/2025 4:09 PM CSTdocumented as of this encounter Last Filed Vital Signs Vital SignReadingTime TakenCommentsBlood Yckptfti895/8010 9:33 AM CDT Zrius2613 9:33 AM MBXDqjrihkspqj53.7 ??C (98.1 ??F)12/27/2024 9:33 AM CDTRespiratory Rate--Oxygen Ulumtljpjb92%12/27/2024 9:33 AM CDTInhaled Oxygen Concentration--Weight--Height--Body Mass Index--documented in this encounter Procedure Notes * Joan Orosco R.N. - 12/27/2024 9:15 AM CDTAssociated Order(s): NONSTRESS TEST - [place] SUBJECTIVE Ashley Almanza, a at 40w3d with an Estimated Date of Delivery: 12/24/24, was seen for a nonstress test. OBJECTIVE Nonstress test findings: Reason for NST: Post-dates Baseline Rate (BR): 120 bpm Variability: Moderate Acceleration Pattern: 15x15 Deceleration Pattern: None Acoustic Stimulator: No Contractions: Not present Nonstress Test Interpretation: Reactive Duration of NST (minutes): >20 Blood Pressure: 119/80 ASSESSMENT / PLAN Reviewed s/s of pre-eclampsia and labor. Denies symptoms. Good movement. Patient is discharged to home. Joan Orosco R.N. Cosigned by Wil Nelson M.D. at 12/28/2024 7:44 AM CDT Associated attestation - Wil Nelson M.D. - 12/28/2024 7:44 AM CDT I have reviewed the NST and agree with the interpretation: Reactive. Wil Nelson M.D. documented in this encounter Plan of Treatment DateTypeDepartmentCare Team (Latest Contact Info)Onjzsnvvfqu16/24/2025 2:30 PM CSTComprehensive Visit Department of Physical Medicine and Rehabilitation in [place], [place] [address] [place] [phone] Milagro Hayes, KEVIN [address] [place] [phone] Jelena Yi O.T., MOT [address] [place] [phone] documented as of this encounter Procedures Procedure NamePriorityDate/TimeAssociated DiagnosisCommentsFETAL NONSTRESS TEST - MMCFTFTFLAditmue40/29/2025 9:15 AM CDT High Risk (HCC) Velamentous Insertion Of Umbilical Cord Unspecified Trimester (HCC) documented in this encounter Results * nonstress test - schofield (12/27/2024 9:15 AM CDT) Narrative Wil Nelson M.D. - 12/27/2024 9:15 AM CDT Wil Nelson M.D. 12/28/2024 7:44 AM SUBJECTIVE Ashley Almanza, a at 40w3d with an Estimated Date of Delivery: 12/24/24, was seen for a nonstress test. OBJECTIVE Nonstress test findings: Reason for NST: Post-dates Baseline Rate (BR): 120 bpm Variability: Moderate Acceleration Pattern: 15x15 Deceleration Pattern: None Acoustic Stimulator: No Contractions: Not present Nonstress Test Interpretation: Reactive Duration of NST (minutes): >20 Blood Pressure: 119/80 ?? ASSESSMENT / PLAN Reviewed s/s of pre-eclampsia and labor. ??Denies symptoms. ??Good movement. Patient is discharged to home. Joan Orosco R.N. Authorizing ProviderResult TypeResult StatusJenneugene Hayes CNMOB GYNE ORDERABLESFinal Result documented in this encounter Visit Diagnoses Diagnosis High Risk (HCC) Velamentous Insertion Of Umbilical Cord Unspecified Trimester (HCC) documented in this encounter Additional Health Concerns AssessmentNoted TimePHQ-9 Depression Total Score: 8:59 AM CDT documented as of this encounter
--- OUTSIDE RECORDS SUMMARY | 2024-12-27 09:00 | XMS_ITS | Encounter Summary ---
Author Organization [facility] Address [address] [place] [phone] Care Team Providers Care Plumbing And Heating Contractor Name Role Phone Unavailable Primary Care Provider Unavailabl e Reason for Referral * Outpatient (Routine) - AuthorizedSpecialtyDiagnoses / ProceduresReferred By ContactReferred To ContactObstetrics and Gynecology Milagro Hayes CNM [address] [place] [phone] Phone: tel: fax: Anupama Padilla M.D. [address] [place] [phone] Phone: tel: fax: Referral IDStatusReasonStart DateExpiration DateVisits RequestedVisits [id number]/29/20254/ * Outpatient (Routine) - ClosedSpecialtyDiagnoses / ProceduresReferred By ContactReferred To ContactObstetrics and Gynecology Milagro Hayes CNM [address] [place] [phone] Phone: tel: fax: Anupama Padilla M.D. [address] [place] [phone] Phone: tel: fax: Referral IDStatusReasonStart DateExpiration DateVisits RequestedVisits [id number]/29/20254/ Reason for Visit * Outpatient (Routine) - ClosedSpecialtyDiagnoses / ProceduresReferred By ContactReferred To ContactObstetrics and Gynecology Anupama Padilla M.D. [address] [place] [address] Phone: tel: fax: [facility] Referral IDStatusReasonStart DateExpiration DateVisits RequestedVisits [id number]/16/20254/17/[id number] Encounter Details DateTypeDepartmentCare Team (Latest Contact Info)Yelvxftxowm49/29/2025 10:00 AM CDTRoutine Department of Obstetrics and Gynecology in [place], [place] [address] [place] [phone] Milagro Hayes CNM [address] [place] [phone] High Risk (HCC) (Primary Dx); Thrombosis Deep Vein Without Delivery (HCC); Type A Blood Rhesus Negative; Velamentous Insertion Of Umbilical Cord Unspecified Trimester (HCC) Social History Tobacco UseTypesPacks/DayYears UsedDateSmoking Tobacco: OcmqviYgtstujjap2Tttg: 09/29/2022Smokeless Tobacco: NeverAlcohol UseStandard Drinks/WeekCommentsNot Currently0 (1 standard drink = 0.6 oz pure alcohol)Humiliation, Afraid, Rape, and Kick questionnaireAnswerDate RecordedWithin the last year, have you been afraid of your partner or ex-partner?Patient unable to sfitdz6712/04/2024Within the last year, have you been humiliated or emotionally abused in other ways by your partner or ex-partner?Patient unable to pirsus9112/04/2024Within the last year, have you been kicked, hit, slapped, or otherwise physically hurt by your partner or ex-partner?Patient unable to cewixb0512/04/2024Within the last year, have you been raped or forced to have any kind of sexual activity by your part ner or ex-partner?Patient unable to fmdxqk1412/04/2024Hunger Vital SignAnswerDate RecordedWithin the past 12 months, [...] RecordedIn the past 12 months has the electric, gas, oil, or water company threatened to shut off services in your home?No12/04/2024Postpartum DepressionAnswerDate RecordedPHQ-9 Total Score (max 27)Housing StabilityAnswerDate RecordedWhat is your living situation today?I have a steady place to live12/04/2024CommentsYesSex and Gender InformationValueDate RecordedSex Assigned at VtzzdElauut60/17/2025 4:09 PM CSTLegal ZpvBfpjmf31/17/2025 4:07 PM CSTGender IzalfjgoGjoszs69/17/2025 4:09 PM CSTSexual ZojjnzexxcqYyorbkjz92/17/2025 4:09 PM CSTdocumented as of this encounter Last Filed Vital Signs Vital SignReadingTime TakenCommentsBlood Lqemuufa572/801 9:59 AM CDT Bkcaf591212/27/2024 9:59 AM IHQFpbfbgeudbn39.7 ??C (98.1 ??F)12/27/2024 9:59 AM CDTRespiratory Rate--Oxygen Emkhpiizqf63%12/27/2024 9:59 AM CDTInhaled Oxygen Concentration--Jhnlyc43.8 kg (200 lb 2.8 oz)12/27/2024 9:59 AM CDTHeight--Body Mass Index32.311 9:46 AM CDTdocumented in this encounter Progress Notes * Patrice Ye M.D., Ph.D. - 12/27/2024 10:00 AM CDT The patient verbally consented to an audio recording of their visit to assist with the completion of documentation. SUBJECTIVE CHIEF COMPLAINT/REASON FOR VISIT Ashley Almanza is a 24 y.o. at 40w3d who presents for her routine appointment. Here today with . is complicated by VTE at 33w of , velamentous cord insertion and late transfer of care at 37w. HISTORY OF PRESENT ILNESS Endorses good and regular FM. Denies vaginal bleeding, loss of fluid. Appreciates Velma Wilder contractions. Denies regular painful contractions. Reports the following concerns: common discomforts of and back pain. Reports occasional contractions that last a few hours before subsiding. Reports increased stress just with how her has progressed, as she initially wanted a very low intervention .But feels that she is managing well. She would like to delay her induction by a few days to see if she goes into spontaneous labor. It was initially scheduled for exactly 41w. Endorses some back pain controlled on stretching exercises. She is continuing to taker her Lovenox. Skipped a dose two days ago for regular contractions anticipating labor but that resolved. Topics reviewed during this visit: awareness of movement, reassurance of normal discomforts of , patient understands warning signs and labor signs/symptoms, and pre-eclampsia signs. OBJECTIVE Vitals: 12/27/24 0959 BP: 119/80 Pulse: 82 Temp: 36.7 ??C SpO2: 99% Weight Gain/Loss: 13.7 kg Weight Gain Goal 7 kg-11.5 kg nonstress test - schofield Nonstress test findings: Reason for NST: Term high risk . Baseline Rate (BR): 120 bpm Variability: Moderate Acceleration Pattern: 15x15 Deceleration Pattern: None Acoustic Stimulator: No Contractions: Not present Nonstress Test Interpretation: Reactive Duration of NST (minutes): >20 Blood Pressure: 119/80 ASSESSMENT/ PLAN High Risk (HCC) Thrombosis Deep Vein Without Delivery (HCC) Type A Blood Rhesus Negative Velamentous Insertion Of Umbilical Cord Unspecified Trimester (HCC) -s/p MFM consult with Dr. Garcia on 12/04/24 and Initial OB with Dr. Flynn on 12/14/24 - anatomy/growth at 37 weeks: EFW 2,802 g 26%, AC 15%, Cephalic; limited anatomy views due to late gestation. Recommended repeat in 1-4 weeks. -per review of scanned records, received Rhogam 10/09/2024 -11/30/24: GBS negative -declines all vaccines -maternal VS normal - well being appreciated today -Discussed that ok to skip Lovenox only if with regular and progressively more painful contractions. -offered membrane sweep today. Declines -IOL deferral to 41w3d requested. Will plan for interim surveillance next week. Given NST today, will plan for BPP next week. Follow Up Plan: - BPP ordered for one week. - OB return visit next week. Reviewed with patient to call for the following symptoms: Vaginal bleeding like a period or heavier Leaking fluid or watery discharge from the vagina Severe and persistent abdominal pain of any kind. This includes regular, painful contractions priorto 37 weeks of New onset nausea and/or vomiting OR persistent vomiting and unable to keep down any fluids for 24 hours or longer Severe headache not relieved with Tylenol, rest and hydration Visual changes such as bright zig-zag lights or spots in their vision, blurry vision, tunnel vision Feeling down, sad or anxious to the point of being unable to do daily activities Decreased Movement (after 24 weeks) Patient to call the office and speak to a nurse during office hours. On evenings, weekends and holidays, call OB Triage. Raffaele Ye M.D., Ph.D. PGY-1, Obstetrics and Gynecology Cosigned by Milagro Hayes CNM at 12/27/2024 1:13 PM CDT Associated attestation - Milagro Hayes CNM - 12/27/2024 1:13 PM CDT I saw and evaluated the patient, participating in the [place] portions of the service. I reviewed the resident/fellow???s note. I agree with the resident/fellow???s findings and plan. Reviewed how to identify labor symptoms as well as an overview of the IOL process. IOL rescheduled to 01/04/25. Has BPP and ATU visit on 01/01/25. Milagro Hayes CNM documented in this encounter Miscellaneous Notes * Assessment & Plan Note - Patrice Ye M.D., Ph.D. - 12/27/2024 10:00 AM CDTAssociated Problem(s): High Risk (HCC) -s/p MFM consult with Dr. Garcia on 12/04/24 and Initial OB with Dr. Flynn on 12/14/24 - anatomy/growth at 37 weeks: EFW 2,802 g 26%, AC 15%, Cephalic; limited anatomy views due to late gestation. Recommended repeat in 1-4 weeks. -per review of scanned records, received Rhogam 10/09/2024 -11/30/24: GBS negative -declines all vaccines -maternal VS normal - well being appreciated today -Discussed that ok to skip Lovenox only if with regular and progressively more painful contractions. -offered membrane sweep today. Declines -IOL deferral to 41w3d requested. Will plan for interim surveillance next week. Given NST today, will plan for BPP next week. * Assessment & Plan Note - Patrice Ye M.D., Ph.D. - 12/27/2024 10:00 AM CDTAssociated Problem(s): Thrombosis Deep Vein Without Delivery (HCC) -s/p MFM consult with Dr. Garcia on 12/04/24 and Initial OB with Dr. Flynn on 12/14/24 - anatomy/growth at 37 weeks: EFW 2,802 g 26%, AC 15%, Cephalic; limited anatomy views due to late gestation. Recommended repeat in 1-4 weeks. -per review of scanned records, received Rhogam 10/09/2024 -11/30/24: GBS negative -declines all vaccines -maternal VS normal - well being appreciated today -Discussed that ok to skip Lovenox only if with regular and progressively more painful contractions. -offered membrane sweep today. Declines -IOL deferral to 41w3d requested. Will plan for interim surveillance next week. Given NST today, will plan for BPP next week. * Assessment & Plan Note - Patrice Ye M.D., Ph.D. - 12/27/2024 10:00 AM CDTAssociated Problem(s): Type A Blood Rhesus Negative -s/p MFM consult with Dr. Garcia on 12/04/24 and Initial OB with Dr. Flynn on 12/14/24 - anatomy/growth at 37 weeks: EFW 2,802 g 26%, AC 15%, Cephalic; limited anatomy views due to late gestation. Recommended repeat in 1-4 weeks. -per review of scanned records, received Rhogam 10/09/2024 -11/30/24: GBS negative -declines all vaccines -maternal VS normal - well being appreciated today -Discussed that ok to skip Lovenox only if with regular and progressively more painful contractions. -offered membrane sweep today. Declines -IOL deferral to 41w3d requested. Will plan for interim surveillance next week. Given NST today, will plan for BPP next week. * Assessment & Plan Note - Patrice Ye M.D., Ph.D. - 12/27/2024 10:00 AM CDTAssociated Problem(s): Velamentous Insertion Of Umbilical Cord Unspecified Trimester (HCC) -s/p MFM consult with Dr. Garcia on 12/04/24 and Initial OB with Dr. Flynn on 12/14/24 - anatomy/growth at 37 weeks: EFW 2,802 g 26%, AC 15%, Cephalic; limited anatomy views due to late gestation. Recommended repeat in 1-4 weeks. -per review of scanned records, received Rhogam 10/09/2024 -11/30/24: GBS negative -declines all vaccines -maternal VS normal - well being appreciated today -Discussed that ok to skip Lovenox only if with regular and progressively more painful contractions. -offered membrane sweep today. Declines -IOL deferral to 41w3d requested. Will plan for interim surveillance next week. Given NST today, will plan for BPP next week. documented in this encounter Plan of Treatment DateTypeDepartmentCare Team (Latest Contact Info)Qqleuqfjxnz24/24/2025 2:30 PM CSTComprehensive Visit Department of Physical Medicine and Rehabilitation in [place], [place] [address] [place] [phone] Milagro Hayes, CNM [address] [place] [phone] Jelena Yi O.T., MOT [address] [place] [address] NameTypePriorityAssociated DiagnosesOrder ScheduleObstetrics and Gynecology office visit (clinic)Outpatient ReferralRoutineExpected: 01/15/2025, Expires: 03/29/2026Obstetrics and Gynecology office visit (clinic)Outpatient Referral RoutineExpected: 02/12/2025, Expires: 03/29/2026documented as of this encounter Results * US OB Biophysical Profile without Non-Stress Schofield (01/01/2025 11:09 AM HEALTH SPA MANAGER)Anatomical RegionLateralityModalityBody, Ultrasound OB RST LOS, Ultrasound ARZ LOSN/AUltrasoundSpecimen (Source)Anatomical Location / Laterality Collection Method / VolumeCollection TimeReceived Time01/01/2025 10:46 AM HEALTH SPA MANAGER Narrative 01/01/2025 11:29 AM HEALTH SPA MANAGER Exam Type ========= OB Biophysical Profile Indication ======== Postdates History ====== OB History ? 1. Para 0 Method ====== Transabdominal ultrasound examination. View: Satisfactory ========= Schofield Dating ====== ? Date ?Details ?Gest. age ?SYLVIE Stated SYLVIE ? 41 w + 1 d ?12/24/2024 Assigned dating based on stated SYLVIE, selected on 12/04/2024 ? 41 w + 1 d?12/24/2024 General Evaluation Cardiac activity present. FHR 135 bpm. Presentation: Cephalic Amniotic Fluid Assessment Amount of AF: normal MVP 5.16 cm Biophysical Profile 2: breathing movements 2: Gross body movements 2: tone 2: Amniotic fluid volume 8/8 Biophysical profile score Interpretation: normal Anatomy The following structures appear normal: Abdomen Stomach. Kidneys. Bladder. Impression ========= Schofield intrauterine . Cephalic presentation. Amniotic fluid volume normal (MVP 5.16 cm). BPP score 8/8. Recommendations Follow-up as clinically indicated Procedure Note Samara Garcia M.D. - 01/01/2025 Exam Type ========= OB Biophysical Profile Indication ======== Postdates History ====== OB History 1. Para 0 Method ====== Transabdominal ultrasound examination. View: Satisfactory ========= Schofield Dating ====== Date DetailsGest. age SYLVIE Stated SYLVIE 41 w + 1 d1 Assigned dating based on stated SYLVIE, selected on w + 1 d 12/24/2024 General Evaluation Cardiac activity present. FHR 135 bpm. Presentation: Cephalic Amniotic Fluid Assessment Amount of AF: normal MVP 5.16 cm Biophysical Profile 2: breathing movements 2: Gross body movements 2: tone 2: Amniotic fluid volume 8/8 Biophysical profile score Interpretation: normal Anatomy The following structures appear normal: Abdomen Stomach. Kidneys. Bladder. Impression ========= Schofield intrauterine . Cephalic presentation. Amniotic fluid volume normal (MVP 5.16 cm). BPP score 8/8. Recommendations Follow-up as clinically indicated Authorizing ProviderResult TypeResult StatusJejason Hayes CNMIMG OB US PROCEDURESFinal Result documented in this encounter Visit Diagnoses Diagnosis High Risk (HCC)- Primary Thrombosis Deep Vein Without Delivery (HCC) Type A Blood Rhesus Negative Velamentous Insertion Of Umbilical Cord Unspecified Trimester (HCC) High Risk (HCC) documented in this encounter Additional Health Concerns AssessmentNoted TimePHQ-9 Depression Total Score: 8:59 AM CDT documented as of this encounter
--- OUTSIDE RECORDS SUMMARY | 2025-01-01 10:41 | XMS_ITS | Encounter Summary ---
Author Organization [facility] Address [address] [place] [address] Care Team Providers Care Senior Datastage Developer Name Role Phone Unavailable Primary Care Provider Unavailabl e Encounter Details DateTypeDepartmentCare Team (Latest Contact Info)Nffsqpvsdug56/03/2025 10:41 AM USED CAR MAKE READY WORKER - 01/01/2025 11:59 PM CSTHospital Encounter Department of Obstetrics and Gynecology in [place], [place] [address] [place] [phone] Milagro Hayes, [facility] [address] [place] [phone] High Risk (HCC) Discharge Disposition: Home or Self Care Social History Tobacco UseTypesPacks/DayYears UsedDateSmoking Tobacco: DrswkvSrsqqcdwhv0Sjqd: 09/29/2022Smokeless Tobacco: NeverAlcohol UseStandard Drinks/WeekCommentsNot Currently0 (1 standard drink = 0.6 oz pure alcohol)Humiliation, Afraid, Rape, and Kick questionnaireAnswerDate RecordedWithin the last year, have you been afraid of your partner or ex-partner?Patient unable to obmgih3712/04/2024Within the last year, have you been humiliated or emotionally abused in other ways by your partner or ex-partner?Patient unable to lpilfc5512/04/2024Within the last year, have you been kicked, hit, slapped, or otherwise physically hurt by your partner or ex-partner?Patient unable to jjkqai4112/04/2024Within the last year, have you been raped or forced to have any kind of sexual activity by your part ner or ex-partner?Patient unable to imzfwt4312/04/2024Hunger Vital SignAnswerDate RecordedWithin the past 12 months, [...] RecordedIn the past 12 months has the [place], gas, oil, or water [employer] threatened to shut off services in your home?No12/04/2024Postpartum DepressionAnswerDate RecordedPHQ-9 Total Score (max 27)Housing StabilityAnswerDate RecordedWhat is your living situation today?I have a steady place to live12/04/2024CommentsYesSex and Gender InformationValueDate RecordedSex Assigned at WyjxeZhrzfs22/17/2025 4:09 PM CSTLegal BfcBagica91/17/2025 4:07 PM CSTGender TknxuwbuRugrvj55/17/2025 4:09 PM CSTSexual NtimzqblqwrYdwglxnr60/17/2025 4:09 PM CSTdocumented as of this encounter Medications at Time of Discharge MedicationSigDispense QuantityRefillsLast FilledStart DateEnd Date tbbwcju-Mq-bquw-FA 27 mg iron- 1 mg tablet Take 1 tablet by mouth daily.11/02/2023 enoxaparin (Lovenox) 80 mg/0.8 mL injection Indications:Thrombosis Deep Vein Without Delivery (HCC)Inject 0.8 mL (80 mg total) under the skin 2 (two) times a day. 48 mL /09/2025documented as of this encounter Plan of Treatment DateTypeDepartmentCare Team (Latest Contact Info)Ymkiqckjpsj30/24/2025 2:30 PM CSTComprehensive Visit Department of Physical Medicine and Rehabilitation in [place], [place] [address] [place] [phone] Milagro Hayes, CNM [address] [place] [phone] Jelena Yi O.T., MOT [address] [place] [phone] documented as of this encounter Procedures Procedure NamePriorityDate/TimeAssociated DiagnosisCommentsUS OB BIOPHYSICAL PROFILE WITHOUT NON-STRESS SINGLETONRAD - Routine (most inpatients and all outpatients)01/01/2025 11:09 AM USED CAR MAKE READY WORKER High Risk (HCC) documented in this encounter Results * US OB Biophysical Profile without Non-Stress Sue (01/01/2025 11:09 AM USED CAR MAKE READY WORKER)Anatomical RegionLateralityModalityBody, Ultrasound OB RST LOS, Ultrasound ARZ LOSN/AUltrasoundSpecimen (Source)Anatomical Location / Laterality Collection Method / VolumeCollection TimeReceived Time01/01/2025 10:46 AM USED CAR MAKE READY WORKER Narrative 01/01/2025 11:29 AM USED CAR MAKE READY WORKER Exam Type ========= OB Biophysical Profile Indication ======== Postdates History ====== OB History ? 1. Para 0 Method ====== Transabdominal ultrasound examination. View: Satisfactory ========= Sue Dating ====== ? Date ?Details ?Gest. age [...] normal: Abdomen Stomach. Kidneys. Bladder. Impression ========= Sue intrauterine . Cephalic presentation. Amniotic fluid volume normal (MVP 5.16 cm). BPP score 8/8. Recommendations Follow-up as clinically indicated Procedure Note Samara Garcia M.D. - 01/01/2025 Exam Type ========= OB Biophysical Profile Indication ======== Postdates History ====== OB History 1. Para 0 Method ====== Transabdominal ultrasound examination. View: Satisfactory ========= Sue Dating ====== Date DetailsGest. age SYLVIE Stated [...] normal: Abdomen Stomach. Kidneys. Bladder. Impression ========= Sue intrauterine . Cephalic presentation. Amniotic fluid volume normal (MVP 5.16 cm). BPP score 8/8. Recommendations Follow-up as clinically indicated Authorizing ProviderResult TypeResult StatusMilagro Hayes CNMIMG OB US PROCEDURESFinal Result documented in this encounter Visit Diagnoses Diagnosis High Risk (HCC) documented in this encounter Additional Health Concerns AssessmentNoted TimePHQ-9 Depression Total Score: 8:59 AM CDT documented as of this encounter
--- OUTSIDE RECORDS SUMMARY | 2025-01-04 14:48 | XMS_ITS | Encounter Summary ---
Author Organization [facility] Address [address] [place] [address] Care Team Providers Care Silver Wrapper Name Role Phone Unavailable Primary Care Provider Unavailabl e Reason for Referral * Outpatient (Routine) - ClosedSpecialtyDiagnoses / ProceduresReferred By ContactReferred To ContactObstetrics and Gynecology Isidra Prasad M.D. [address] [place] [address] Phone: tel: fax: [facility] Referral IDStatusReasonStart DateExpiration DateVisits RequestedVisits [id number]/9/20255/11/[id number] Scheduling Instructions BP visit 3 day PP ER DEVELOPER * Physical Therapy (Routine) - ClosedSpecialtyDiagnoses / ProceduresReferred By ContactReferred To Contact Diagnoses Care And Lactating Procedures PT or OT eval and treat (first available) Isidra Prasad M.D. [address] [place] [address] Phone: tel: fax: [facility] Referral IDStatusReasonStart DateExpiration DateVisits RequestedVisits [id number]/9/20252/9/[id number] ER DEVELOPER Reason for Visit * ReasonCommentsContractions * Auth/Cert (Routine)SpecialtyDiagnoses / ProceduresReferred By ContactReferred To Contact Diagnoses Spontaneous Onset Of Labor After 37 Completed Weeks Of Gestation But Before 39 Completed Weeks Gestation With Delivery By Planned Section (HCC) Procedures LD Referral IDStatusReasonStart DateExpiration DateVisits RequestedVisits [id number] Encounter Details DateTypeDepartmentCare Team (Latest Contact Info)Zoofqksayct56/06/2025 2:48 PM CAREER DEVELOPER - 01/07/2025 3:08 PM CSTHospital Encounter [facility], Third Floor [address] [place] [address] Dee Lazo M.D. [address] [place] [phone] Henri Blunt M.D. [address] [place] [phone] Marita Ribeiro APRN, CNM, D.N.P. [address] [place] [phone] Viola Mcintosh APRN, CNM [address] [place] [phone] Care And Lactating (Primary Dx); 41 Weeks Gestation (HCC) [Z3A.41]; Thrombosis Deep Vein Without Delivery ([facility]) Discharge Disposition: Home or Self Care Social History Tobacco UseTypesPacks/DayYears UsedDateSmoking Tobacco: FewpepXbmjmicqdq3Siyn: 09/29/2022Smokeless Tobacco: NeverAlcohol UseStandard Drinks/WeekCommentsNot Currently0 (1 standard drink = 0.6 oz pure alcohol)Humiliation, Afraid, Rape, and Kick questionnaireAnswerDate RecordedWithin the last year, have you been afraid of your partner or ex-partner?Patient unable to jfkeqj6712/04/2024Within the last year, have you been humiliated or emotionally abused in other ways by your partner or ex-partner?Patient unable to dadxxq6912/04/2024Within the last year, have you been kicked, hit, slapped, or otherwise physically hurt by your partner or ex-partner?Patient unable to rgsqyb9612/04/2024Within the last year, have you been raped or forced to have any kind of sexual activity by your part ner or ex-partner?Patient unable to yhrmye9912/04/2024Hunger Vital SignAnswerDate RecordedWithin the past 12 months, [...] RecordedIn the past 12 months has the [employer], gas, oil, or water [employer] threatened to shut off services in your home?No12/04/2024Postpartum DepressionAnswerDate RecordedPHQ-9 Total Score (max 27)Housing StabilityAnswerDate RecordedWhat is your living situation today?I have a steady place to live12/04/2024CommentsNoSex and Gender InformationValueDate RecordedSex Assigned at HnxylNjjmep97/17/2025 4:09 PM CSTLegal YvnKqeduv14/17/2025 4:07 PM CSTGender PigmswbeBfkzuc37/17/2025 4:09 PM CSTSexual PzsscpzesgtHwhtpcyi61/17/2025 4:09 PM CSTdocumented as of this encounter Last Filed Vital Signs Vital SignReadingTime TakenCommentsBlood Rkquxvvo517/7411/10/2024 10:00 AM CAREER DEVELOPER Zxxnt0242 10:00 AM HVZDyjwlpfljgt37.8 ??C (98.2 ??F)01/07/2025 10:00 AM CSTRespiratory Gxjk873203/09/2024 10:00 AM CSTOxygen Inrefsmrhg47%01/07/2025 10:00 AM CSTInhaled Oxygen Concentration--Twquau51.8 kg (200 lb 2.8 oz)01/04/2025 5:10 PM GSXYmwmct686.6 cm (5' 5.98)01/04/2025 5:10 PM CSTBody Mass Index32.33 01/04/2025 5:10 PM CSTdocumented in this encounter Discharge Summaries * Isidra Prasad M.D. - 01/07/2025 8:57 AM CST Discharge Summary DEMOGRAPHIC INFORMATION [facility] Number: [id number] Patient Name: Ashley Almanza Age: 24 y.o. Birthdate: 2000 Address: [address] [place] [phone] [facility] Summary Admission Date: 01/04/2025 Dismissal Date: 01/07/2025 Service: Obstetrics and Gynecology Location: [facility] ([facility] [place]) Discharging provider: Isidra Prasad M.D. 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 Her was complicated by DVT at 33 weeks, Rh negative blood type, velamentous cord insertion, aortic arch narrowing. Her labor course was augmented with AROM, utilizing natural methods, nitrous, and hydrotherapy for pain management. Complications of labor included protracted labor. She had a , delivering a liveborn female with weight of 3.57 kg. Gestational age: 41w5d. occurred: :45 PM Perineal lacerations or episiotomy: First degree laceration and Periurethral laceration Lacerations were repaired with: 3-0 Vicryl Contraceptive methods administered during the delivery: None Both mother and baby were in stable condition at the conclusion of the procedure. When the patient met appropriate criteria, she was transferred to the floor. She received her care at [facility]. Patient is day 1 from vaginal delivery and is on our high-risk less due to continued prophylaxis effort DVT at 33 weeks. She has a history of gestational hypertension however blood pressures have been controlled and HELLP labs were normal on 01/05. On day 2 patient has been normotensive she remains on no medications. She will be discharged with a blood pressure cuff as well as precautions and a 2 3 blood pressure visit. She remains on the low 80 mg b.i.d.. Thrombophilia testing is to be done high-risk visitin 6 weeks. Feeding Method: breast feeding and pumping : The patient is currently . Rh Immune Globulin Given: yes DISCHARGE MEDICATIONS Current Outpatient Medications Medication Instructions enoxaparin (LOVENOX) 80 mg, subcutaneous, 2 times daily nsaunyy-Di-oosr-FA 27 mg iron- 1 mg tablet 1 tablet, Daily ALLERGIES/ADVERSE REACTIONS No Known Allergies Medications prescribed may negatively interact with certain xuer-tsi-ipljqzj medications or foods. Please review medication labels for additional information or call your pharmacy or primary care team with questions. IMMUNIZATIONS GIVEN None CONDITION AT DISCHARGE stable DISCHARGE DISPOSITION Home/Self Care FOLLOW-UP RECOMMENDATIONS AND CONTACT INFORMATION We recommend the following visits and/or labs during your recovery: - Blood pressure check in 3-5 days can be virtual - 2 week mood check in - 6 week visit with thrombophilia testing at this visit - PT follow up Take blood pressure 2x a day and if numbers are > than either the top number >140 or the bottom >90, please contact us. If numbers are >160 for the top number or >110 for the bottom number come into to triage. If you delivered at [facility] but received your care elsewhere, it may be moreconvenient to follow-up in your hometown. Ask your [facility] team if this is appropriate. However, if you are still in [place] and experiencing related problems, call the [facility] Clinic[facility] at [phone] or the [facility] Triage, Harsha Desk 3C at [phone]. Clinic phone numbers: Christiano 3B: [facility]: [facility]: [facility]: [facility]: or ([phone]) Tariff Compiling Clerk: Always call 911 or go to your local emergency department for urgent or emergent concerns. Emergent concerns include (but are not limited to): trauma/musculoskeletal concerns, altered mental status, feeling that you want to harm yourself or others, psychosis, chest pain and neurologic symptoms/seizure. If you are uncertain if or where to present, please call [facility] Triage, Harsha Desk3C at [phone] for advice. If you have a prescription being filled at the Outpatient Pharmacy, please pick it up prior to leaving the hospital. Discharge instructions were provided to the patient and caregivers. ER DEVELOPER ER DEVELOPER ER DEVELOPER documented in this encounter Medications at Time of Discharge MedicationSigDispense QuantityRefillsLast FilledStart DateEnd Date acetaminophen (TylenoL) 500 mg capsule Take 2 capsules (1,000 mg total) by mouth every 6 (six) hours as needed for pain. benzocaine-menthoL (Dermoplast) 20-0.5 % external spray Apply 1 Application topically 4 (four) times a day as needed for pain for up to 35 days. enoxaparin (Lovenox) 80 mg/0.8 mL injection Indications:Thrombosis Deep Vein Without Delivery (HCC)Inject 0.8 mL (80 mg total) under the skin 2 (two) times a day. 48 mL ibuprofen 200 mg tablet Take 3 tablets (600 mg total) by mouth every 6 (six) hours as needed for pain. nxitnzs-Uc-panx-FA 27 mg iron- 1 mg tablet Take 1 tablet by mouth daily.11/02/2023 polyethylene glycol (Miralax) 17 gram powder packet Take 1 packet (17 g total) by mouth daily. Dissolve each 17 g dose in 240 mLs (8 ounces) of beverage. sennosides (senna) 8.6 mg tablet Take 2 tablets (17.2 mg total) by mouth at bedtime as needed for constipation for up to 35 days. simethicone 125 mg chewable tablet Chew 1 tablet (125 mg total) 4 (four) times a day as needed for flatulence for up to 35 days. witch Bharti (Tucks) 50 % pad Apply to the affected rectal area by patting up to 6 times daily or after each bowel movement.documented as of this encounter Progress Notes * Isidra Prasad M.D. - 01/07/2025 8:51 AM CST SUBJECTIVE Ashley Almanza is a 24 y.o. who is day 2 after a . The patient was admitted to the [facility] for induction of labor. Her was complicated by DVT at 33 weeks, Rh negative blood type, velamentous cord insertion, aortic arch narrowing. Her labor course was augmented with AROM, utilizing natural methods, nitrous, and hydrotherapy for pain management. Complications of labor included protracted labor. She had a , delivering a liveborn female with weight of 3.57 kg. Gestational age: 41w5d. occurred: :45 PM Perineal lacerations or episiotomy: First degree laceration and Periurethral laceration Lacerations were repaired with: 3-0 Vicryl Contraceptive methods administered during the delivery: None Both mother and baby were in stable condition at the conclusion of the procedure. When the patient met appropriate criteria, she was transferred to the floor. She received her care at [facility]. Patient is day 1 from vaginal delivery and is on our high-risk less due to continued prophylaxis effort DVT at 33 weeks. She has a history of gestational hypertension however blood pressures have been controlled and HELLP labs were normal on 01/05. On day 2 patient has been normotensive she remains on no medications. She will be discharged with a blood pressure cuff as well as precautions and a 2 3 blood pressure visit. She remains on the low 80 mg b.i.d.. Thrombophilia testing is to be done high-risk visitin 6 weeks. : The patient is currently . Feeding method for her : breast feeding and pumping REVIEW OF SYSTEMS Physically, she reports the following: pain is well controlled, pain control is suboptimal, lochia is appropriate, voiding without problem, tolerating a diet, ambulating, passing flatus. Patient is currently meeting all postoperative milestones. She denies any headaches, vision changes, shortness of breath, right quadrant pain or chest pain. OBJECTIVE VITAL SIGNS Vitals: 01/07/25 1000 BP: 123/74 Pulse: 85 Resp: Temp: 36.8 ??C SpO2: 97% ALLERGIES/CONTRAINDICATIONS Allergies[1] PHYSICAL EXAMINATION Constitutional: in NAD Alert and oriented Fundal height: 2 cm below umbilicus Abdomen: Non-tender A Neg Prophylactic Rhophylac: Yes, ordered. Will be given this morning rosettes positive VTE risk: Moderate/high risk - currently on inpatient prophylaxis for history of DVT No results found for this or any previous visit (from the past 24 hours). 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 for 6 weeks until visit. -Thrombophilia testing to be discussed at 6 week visit # Gestational hypertension -blood pressures remain normotensive - not currently on medication -HELLP labs WNL - patient will be discharged with a blood pressure cuff and precautions #Type A Blood Rhesus Negative - Rhogram first dose ordered Day 2 Continue with routine cares. Plans TBD for contraception. Plan to discharge to home today PATIENT EDUCATION Ready to learn, barriers to learning: none; learning preferences include listening. Explained diagnosis and treatment plan; patient expressed understanding of the content. Isidra Prasad M.D. [1] No Known Allergies Cosigned by Anupama Padilla M.D. at 01/07/2025 6:16 PM CAREER DEVELOPER ER DEVELOPER ER DEVELOPER Associated attestation - Anupama Padilla M.D. - 01/07/2025 6:16 PM CAREER DEVELOPER Strategic Partner Development Manager Teaching Physician Statement: I have rounded on, supervised and discussed the care of Ashley Almanza, including pertinent history and exam findings with the fellow/resident. I have reviewed their note in the electronic medical record. The pennington elements of the encounter have been performed/reviewed by me. I agree with the assessment, plan, and orders as documented by the fellow/resident. The level of care submitted represents tothe best of my ability the care documented in the medical record today. GC Modifier: This service has been performed in part by a fellow/resident under the direction of a teaching physician. Assessment and plan as detailed in note. Anupama John M.D. * Demarcus Plata M.D. - 01/06/2025 1:59 PM CST Post Anesthesia Assessment Note Patient: Ashley Almanza General Info Post-procedure day: 1 Follow-up type: OB OB Assessment day: 1 Vital signs: vitals reviewed Ambulation: has ambulated Urinary retention: No Cesarian Delivery: No Patient received a neuraxial anesthetic: Yes Neuraxial Complications New or progressive sensory deficit since admission: No New or progressing motor deficit since admission: No Headache: No Clinical signs or symptoms of neuraxial infection: none apparent Clinical signs or symptoms of neuraxial hematoma: none apparent Clinical signs or symptoms of [employer] toxicity (during this admission): none Does patient display any postoperative anesthesia complication warranting further documentation: No ER DEVELOPER * Isidra Prasad M.D. - 01/06/2025 1:39 PM CST SUBJECTIVE Ashley Almanza is a 24 y.o. who is day 1 after a . The patient was admitted to the [facility] for induction of labor. Her was complicated by DVT at 33 weeks, Rh negative blood type, velamentous cord insertion, aortic arch narrowing. Her labor course was augmented with AROM, utilizing natural methods, nitrous, and hydrotherapy for pain management. Complications of labor included protracted labor. She had a , delivering a liveborn female with weight of 3.57 kg. Gestational age: 41w5d. occurred: :45 PM Perineal lacerations or episiotomy: First degree laceration and Periurethral laceration Lacerations were repaired with: 3-0 Vicryl Contraceptive methods administered during the delivery: None Both mother and baby were in stable condition at the conclusion of the procedure. When the patient met appropriate criteria, she was transferred to the floor. She received her care at [facility]. Patient is day 1 from vaginal delivery and is on our high-risk less due to continued prophylaxis effort DVT at 33 weeks. She has a history of gestational hypertension however blood pressures have been controlled and HELLP labs were normal on 01/05. : The patient is currently . Feeding method for her infant: breast feeding and pumping REVIEW OF SYSTEMS Physically, she reports the following: pain is well controlled, pain control is suboptimal, lochia is appropriate, voiding without problem, tolerating a diet, ambulating, passing flatus. OBJECTIVE VITAL SIGNS Vitals: 01/06/25 1213 BP: Pulse: 68 Resp: Temp: SpO2: 97% ALLERGIES/CONTRAINDICATIONS Allergies[1] PHYSICAL EXAMINATION Constitutional: in NAD Alert and oriented Fundal height: At umbilicus Abdomen: Non-tender A Neg Prophylactic Rhophylac: Yes, ordered. 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) #3 Type A Blood Rhesus Negative #4 Care And Lactating #5 Delivery Vaginal Normal Spontaneous (HCC) #6 Abnormal Ultrasound #7 Hypertension Gestational (HCC) #Thrombosis Deep Vein Without Delivery (HCC) - L external iliac DVT diagnosed at 33 weeks - Lovenox 80 mg BID with last dose 01/02 evening - Restarted Lovenox 9 am 01/06 -Thrombophilia testing to be discussed at 6 week visit # Gestational hypertension -blood pressures remain normotensive - not currently on medication -HELLP labs WNL - patient will be discharged with a blood pressure cuff and precautions #Type A Blood Rhesus Negative - Rhogram first dose ordered Rosettes positive - consider second dose post flow cytometry results Day 1 Continue with routine cares. Plans TBD for contraception. PATIENT EDUCATION Ready to learn, barriers to learning: none; learning preferences include listening. Explained diagnosis and treatment plan; patient expressed understanding of the content. Isidra Prasad M.D. [1] No Known Allergies Cosigned by Adithya Cee M.D. at 01/06/2025 2:35 PM CAREER DEVELOPER ER DEVELOPER ER DEVELOPER ER DEVELOPER Associated attestation - Adithya Cee M.D. - 01/06/2025 2:35 PM CAREER DEVELOPER OB Strategic Partner Development Manager Pt seen & evaluated @ 1140 I saw and evaluated the patient, participating in the pennington portions of the service. I reviewed the resident physician???s note. I agree with the resident physician???s findings and plan. PPD 1 yesterday, delivery time 1545 (First degree perineal laceration, repaired) Lovenox to restart today (80 mg SQ BID) Disc when she may be a candidate for discharge to home (eg perhaps tomorrow) Disc importance of outpatient BP monitoring, including preeclampsia precautions Questions answered Adithya Cee MD * Shahida Patel D.O. - 01/05/2025 2:19 PM CST Labor Progress Note: In to assess patient at 2 hour michael from last exam. Noted to have overall adequate contractions. Feeling some rectal and vaginal pressure, no clear urge to push. SVE: Complete/ 100/+1 to +2, palpates OP FHT: 145 bpm, moderate variability, +accel, occasional variable decels TOCO: every 2-3min + scalp stimulation A/P: 24 y/o at 41w5d admitted for augmentation of labor in the setting of non-reactive NST in triage at post term. Currently starting second stage. Maternal and status overall reassuring. At this time, she is complete. Plan to start pushing at this time. We reviewed extensively second stage timelines in nulliparous patients, pending FHR. Currently mix of Category I and Category II tracing, will closely monitor. Given patient preferences for certain providers, we discussed ongoing management of labor by CNM team vs physician team. Recognizing her desire for continuity with providers, discussed this not trulyfeasible with only single physician. Thus, she has elected to proceed with actuarial internship care. We discussed that if persistent OP despite position changes, pending her progress, would recommend manual rotation. Shahida Patel D.O. PGY7- Mfm Fellow ER DEVELOPER * Patrizia Bradshaw CNM - 01/05/2025 2:10 PM CST SUBJECTIVE Ashley Almanza is a 24 y.o. at 41w5d. Patient resting in bed and open to cervical exam. OBJECTIVE BP 139/83 Pulse 94 Temp 36.7 ??C (Oral) Resp 18 Ht 167.6 cm Wt 90.8 kg SpO2 97% Yes BMI 32.33 kg/m?? General: Alert, cooperative, no distress Heart Tracing: Baseline Rate (BR): 145 bpm Variability: Moderate Acceleration Pattern: 15 x15 Deceleration Pattern: intermittent; Late; Variable FHR Category: Category II Contraction Frequency (minutes): 1-3 Dilation: 10 Effacement (%): 100 Station: 1 Cervical exam completed by Dr. Patel. If applicable to plan of care: Jerome Score: 10 Membrane Status: AROM Amniotic fluid color: Clear fluid Pitocin: Pitocin at 6 mu/min ASSESSMENT / PLAN #1 41 Weeks Gestation ([facility]) - Admitted with GEORGE - CBC on admission Hgb 14.4 Hct 43.6 Plt 275 - Hydrotherapy, natural methods for pain Management - AROM for augmentation - Requests epidural for pain management #2 Abnormal Ultrasound - Heart/Thorax Aortic arch view: Rodriguez scale suggest subjective narrowing but normal color flow doppler and velocity is identified. - Recommend echo #3 Thrombosis Deep Vein Without Delivery ([facility]) - L external iliac DVT diagnosed at 33 weeks - Lovenox 80 mg BID - Last dose 01/02 evening -Thrombophilia testing to be done #4 Velamentous Insertion Of Umbilical Cord Unspecified Trimester ([facility]) - 11/01 ultrasound Normal placental cord insertion. - 12/04 Advanced level ultrasound: Umbilical cord: Cord vessels: Unable to assess. Insertion site: velamentous insertion - Images reviewed by Dr. Blunt who was unable to definitively say yes or no to velamentous cord insertion #5 Type A Blood Rhesus Negative - Type and screen on cord blood - RhoGAM as indicated - Positive RBC antibody on admission type and screen - ID detected no antibodies #6 Gestational Hypertension - Mild range blood pressures 4 hours or more apart meeting criteria for gHTN - HELLP labs normal PLAN: LABOR COURSE: Time of cervical ripening intervention: N/A Time Pitocin started: @ 1036 Time of AROM: 01/05 @ 0224 Time of IUPC/FSE placement: @ 1220 Time when deemed in active labor: 01/04 @ 2230 - Begin second stage - Anticipate Laisha Bradshaw CNM ER DEVELOPER * Shahida Patel D.O. - 01/05/2025 1:31 PM CST Brief Progress Note: In to assess the patient at 12:15 with CNM colleagues. Extensively counseled the patient of concerns of prolonged/protracted active phase. Noted to be 9cmdilated at 06:00, called 9.5cm at 08:00 for the first time. Unchanged since then. After extensive counseling, was amenable to starting pitocin at 10:36, uptitrated per tolerance. She is declining manual rotation at this time for direct OP position despite counseling. We discussed that she is currently 4 hours in the active phase with minimal change other than fetalstation. It would be reasonable to proceed with section now. She declines this now. However, given the difficulty of monitoring contraction pattern, and unknown contraction strength, strongly recommend IUPC placement to assess contraction strength if cervix is unchanged. We reviewed risks/benefits of IUPC placement at this time. She is amenable to this if cervix unchanged. Vitals: 01/05/25 1226 BP: 127/81 Pulse: Resp: Temp: 36.8 ??C SpO2: FHT: 135 bpm,moderate variability, +accels, occasional variable decels TOCO: every 2-4 minutes SVE: 9.5cm/100/+1, threaded IUPC anteriorly without difficulty or resistance. Scalp stimulation on my exam. A/P: 24 y/o at 41w5d admitted for augmentation of labor in the setting of non-reactive NST in triage at post term. Currently in active phase, prolonged, with overall reassuring maternal and status. Discussed extensively continued position changes and pitocin titration as able with cervical exam reassessment at 6 hour michael (in two hours at 14:15). Discussed with patient and family if she is not completely dilated at 14:15, will recommend primary section for active phase arrest. Close monitoring of status. Intermittent Category I and Category II tracing, with overall ongoing moderate variability and scalp stim on my exam. They expressed understanding at this time. Shahida Patel D.O. PGY7- MFM Fellow ER DEVELOPER * Patrizia Bradshaw CNM - 01/05/2025 11:30 AM CST SUBJECTIVE Ashley Almanza is a 24 y.o. at 41w5d. Patient in hands and knees with Carlie and Chandler at bedside for support. OBJECTIVE BP 133/75 Pulse 101 Temp 36.5 ??C (Oral) Resp 19 Ht 167.6 cm Wt 90.8 kg SpO2 97% BMI32.33 kg/m?? General: Alert, cooperative, no distress Heart Tracing: Baseline Rate (BR): 135 bpm Variability: Moderate Acceleration Pattern: 15x15 Deceleration Pattern: Early; Variable; Late; Recurrent FHR Category: Category II Contraction Frequency (minutes): 2-5 Dilation: 9.5 Effacement (%): 90 Station: 1 If applicable to plan of care: Jerome Score: 10 Membrane Status: AROM Amniotic fluid color: Clear fluid Pitocin: Pitocin at 4 mu/min ASSESSMENT / PLAN #1 41 Weeks Gestation (HCC) - Admitted with GEORGE - CBC on admission Hgb 14.4 Hct 43.6 Plt 275 - Hydrotherapy, natural methods for pain Management - AROM for augmentation - Requests epidural for pain management #2 Abnormal Ultrasound - Heart/Thorax Aortic arch view: Rodriguez scale suggest subjective narrowing but normal color flow doppler and velocity is identified. - Recommend echo #3 Thrombosis Deep Vein Without Delivery (HCC) - L external iliac DVT diagnosed at 33 weeks - Lovenox 80 mg BID - Last dose 01/02 evening -Thrombophilia testing to be done #4 Velamentous Insertion Of Umbilical Cord Unspecified Trimester (HCC) - 11/01 ultrasound Normal placental cord insertion. - 12/04 Advanced level ultrasound: Umbilical cord: Cord vessels: Unable to assess. Insertion site: velamentous insertion - Images reviewed by Dr. Blunt who was unable to definitively say yes or no to velamentous cord insertion #5 Type A Blood Rhesus Negative - Type and screen on cord blood - RhoGAM as indicated - Positive RBC antibody on admission type and screen - ID detected no antibodies #6 Gestational Hypertension - Mild range blood pressures 4 hours or more apart meeting criteria for gHTN - HELLP labs normal PLAN: LABOR COURSE: Time of cervical ripening intervention: N/A Time Pitocin started: N/A Time of AROM: 01/05 @ 4 Time of IUPC/FSE placement: N/A Time when deemed in active labor: 01/04 @ 2230 - Extensively counseled on risks associated with protracted active phase with both Marck Stevens CNM and I. Discussed arrest of descent would be at 1400. - Consulted Dr. Patel and she discussed IUPC, manual rotation and section as options going forward. Patient opted for IUPC and increasing pitocin per protocol. Dr. Patel placed IUPC. - Plan to recheck cervix at 1400 or as clinically indicated. Laisha Bradshaw CNM ER DEVELOPER * Patrizia Bradshaw CNM - 01/05/2025 10:15 AM CST SUBJECTIVE Ashley Almanza is a 24 y.o. at 41w5d. Patient resting on right side with Chandler and Carlie at bedside for support. OBJECTIVE BP 127/69 Pulse 64 Temp 36.8 ??C (Oral) Resp 19 Ht 167.6 cm Wt 90.8 kg SpO2 97% BMI 32.33 kg/m?? General: Alert, cooperative, no distress Heart Tracing: Baseline Rate (BR): 130 bpm Variability: Moderate Acceleration Pattern: 15x15 Deceleration Pattern: -- (Broken tracing noted throughout. Dips in FHR- unable to determine what kind.) FHR Category: Category II Contraction Frequency (minutes): 3-4 Dilation: 9.5 Effacement (%): 90 Station: 1 If applicable to plan of care: Jerome Score: 10 Membrane Status: AROM Amniotic fluid color: Clear fluid Pitocin: NA - no pitocin ASSESSMENT / PLAN #1 41 Weeks Gestation ([facility]) - Admitted with GEORGE - CBC on admission Hgb 14.4 Hct 43.6 Plt 275 - Hydrotherapy, natural methods for pain Management - AROM for augmentation - Requests epidural for pain management #2 Abnormal Ultrasound - Heart/Thorax Aortic arch view: Rodriguez scale suggest subjective narrowing but normal color flow doppler and velocity is identified. - Recommend echo #3 Thrombosis Deep Vein Without Delivery ([facility]) - L external iliac DVT diagnosed at 33 weeks - Lovenox 80 mg BID - Last dose 01/02 evening -Thrombophilia testing to be done #4 Velamentous Insertion Of Umbilical Cord Unspecified Trimester ([facility]) - 11/01 ultrasound Normal placental cord insertion. - 12/04 Advanced level ultrasound: Umbilical cord: Cord vessels: Unable to assess. Insertion site: velamentous insertion - Images reviewed by Dr. Blunt who was unable to definitively say yes or no to velamentous cord insertion #5 Type A Blood Rhesus Negative - Type and screen on cord blood - RhoGAM as indicated - Positive RBC antibody on admission type and screen - ID detected no antibodies #6 Gestational Hypertension - Mild range blood pressures 4 hours or more apart meeting criteria for gHTN - HELLP labs normal PLAN: LABOR COURSE: Time of cervical ripening intervention: N/A Time Pitocin started: N/A Time of AROM: 01/05 @ 0224 Time of IUPC/FSE placement: N/A Time when deemed in active labor: 01/04 @ 2230 - Remains LOP per cervical exam. - Discussed slow course of labor with patient, Chandler and Carlie. Discussed risks associated with protracted active phase. - Recommended beginning Pitocin augmentation at this time. Discussed risks/benefits of Pitocin. Patient agreeable at this time. Plan to begin pitocin augmentation. - Plan to recheck cervix 1 hour after strong, regular contractions begun. - Consulted Dr. Patel on case. Patient declines manual rotation at this time, but may be open to it in the future. Laisha Bradshaw CNM ER DEVELOPER * Shahida Patel, D.O. - 01/05/2025 9:58 AM CST Brief Progress Note: In to see patient this morning, well known to me from admission yesterday. Comfortable with epidural. Asked by provider/CNM to assess position. On martha's palpates OP. Bedside ultrasound performed, appears LOP on ultrasound. We discussed OP positioning in the setting of prolonged active phase. Would recommend repositioning(will trial hands and knees) initially, but we also discussed the option of manual rotation. She would like to trial maternal repositioning first prior to manual rotation of baby, which is reasonable. FHT: 130 bpm, moderate variability, +accels, no decels TOCO: irregular Bedside US: Cephalic, LOP position Tavo 3700g A/P: 24 y/o at 41w5d admitted for augmentation of labor in the setting of non-reactive NST in triage at post term. Currently in active phase, somewhat prolonged, with overall reassuring maternaland status. Labor Management per CNM team. - Plan for maternal repositioning at this time - Short term reassessment of position and dilation - If no change in position, will offer manual rotation and consider IV pitocin for regular contraction pattern Shahida Patel D.O. PGY7- MFM Fellow ER DEVELOPER * Patrizia Bradshaw CNM - 01/05/2025 9:37 AM CST SUBJECTIVE Ashley Almanza is a 24 y.o. at 41w5d. Patient in side lying position with Chandler and Roberta at bedside for support. She reports feeling pressure, but unsure if it is just with contractions. OBJECTIVE BP 127/69 Pulse 64 Temp 36.8 ??C (Oral) Resp 19 Ht 167.6 cm Wt 90.8 kg SpO2 97% BMI 32.33 kg/m?? General: Alert, cooperative, no distress Heart Tracing: Baseline Rate (BR): 130 bpm Variability: Moderate Acceleration Pattern: present Deceleration Pattern: Variable; Intermittent FHR Category: Category II Contraction Frequency (minutes): -- (Difficulty tracing contractions d/t maternal position on side.) Dilation: 9.5 Effacement (%): 90 Station: 1 If applicable to plan of care: Jerome Score: 10 Membrane Status: AROM Amniotic fluid color: Clear fluid Pitocin: NA - no pitocin ASSESSMENT / PLAN #1 41 Weeks Gestation ([facility]) - Admitted with GEORGE - CBC on admission Hgb 14.4 Hct 43.6 Plt 275 - Hydrotherapy, natural methods for pain Management - AROM for augmentation - Requests epidural for pain management #2 Abnormal Ultrasound - Heart/Thorax Aortic arch view: Rodriguez scale suggest subjective narrowing but normal color flow doppler and velocity is identified. - Recommend echo #3 Thrombosis Deep Vein Without Delivery ([facility]) - L external iliac DVT diagnosed at 33 weeks - Lovenox 80 mg BID - Last dose 01/02 evening -Thrombophilia testing to be done #4 Velamentous Insertion Of Umbilical Cord Unspecified Trimester ([facility]) - 11/01 ultrasound Normal placental cord insertion. - 12/04 Advanced level ultrasound: Umbilical cord: Cord vessels: Unable to assess. Insertion site: velamentous insertion - Images reviewed by Dr. Blunt who was unable to definitively say yes or no to velamentous cord insertion #5 Type A Blood Rhesus Negative - Type and screen on cord blood - RhoGAM as indicated - Positive RBC antibody on admission type and screen - ID detected no antibodies #6 Gestational Hypertension - Mild range blood pressures 4 hours or more apart meeting criteria for gHTN - HELLP labs normal PLAN: LABOR COURSE: Time of cervical ripening intervention: N/A Time Pitocin started: N/A Time of AROM: 01/05 @ 0224 Time of IUPC/FSE placement: N/A Time when deemed in active labor: 01/04 @ 2230 - Protracted active phase - Dr. Patel consulted and performed US to determine head position- LOP. Discussed option of hands and knees positioning or manual rotation. Patient opts for hands and knees positioning. - Patient placed in hands and knees - Plan to recheck cervix in 1 hour or as clinically indicated Laisha Bradshaw CNM ER DEVELOPER * Patrizia Bradshaw CNM - 01/05/2025 8:00 AM CST SUBJECTIVE Ashley Almanza is a 24 y.o. at 41w5d. Patient resting comfortably in bed with Chandler and Carlie at bedside for support. Reports she is feeling well and pain is managed well. OBJECTIVE BP 127/69 Pulse 64 Temp 36.8 ??C (Oral) Resp 19 Ht 167.6 cm Wt 90.8 kg SpO2 97% BMI 32.33 kg/m?? General: Alert, cooperative, no distress Heart Tracing: Baseline Rate (BR): 130 bpm Variability: Minimal Acceleration Pattern: 15x15 Deceleration Pattern: Variable; Intermittent FHR Category: Category II Contraction Frequency (minutes): 3-4 Dilation: 9.5 Effacement (%): 90 Station: 1 If applicable to plan of care: Jerome Score: 10 Membrane Status: AROM Amniotic fluid color: Clear fluid Pitocin: NA - no pitocin ASSESSMENT / PLAN #1 41 Weeks Gestation (HCC) - Admitted with GEORGE - CBC on admission Hgb 14.4 Hct 43.6 Plt 275 - Hydrotherapy, natural methods for pain Management - AROM for augmentation - Requests epidural for pain management #2 Abnormal Ultrasound - Heart/Thorax Aortic arch view: Rodriguez scale suggest subjective narrowing but normal color flow doppler and velocity is identified. - Recommend echo #3 Thrombosis Deep Vein Without Delivery (HCC) - L external iliac DVT diagnosed at 33 weeks - Lovenox 80 mg BID - Last dose 01/02 evening -Thrombophilia testing to be done #4 Velamentous Insertion Of Umbilical Cord Unspecified Trimester (HCC) - 11/01 ultrasound Normal placental cord insertion. - 12/04 Advanced level ultrasound: Umbilical cord: Cord vessels: Unable to assess. Insertion site: velamentous insertion - Images reviewed by Dr. Blunt who was unable to definitively say yes or no to velamentous cord insertion #5 Type A Blood Rhesus Negative - Type and screen on cord blood - RhoGAM as indicated - Positive RBC antibody on admission type and screen - ID detected no antibodies #6 Gestational Hypertension - Mild range blood pressures 4 hours or more apart meeting criteria for gHTN - HELLP labs normal PLAN: LABOR COURSE: Time of cervical ripening intervention: N/A Time Pitocin started: N/A Time of AROM: 01/05 @ 0224 Time of IUPC/FSE placement: N/A Time when deemed in active labor: 01/04 @ 2230 - Recheck cervix in 1 hour or when clinically indicated - Discussed position changes with anterior lip cervical exam. Patient will reposition to left side lying. Encouraged frequent position changes. Laisha Bradshaw CNM ER DEVELOPER ER DEVELOPER * Savanna Escobar APRN, CNM - 01/05/2025 6:06 AM CST SUBJECTIVE Ashley Almanza is a 24 y.o. at 41 w 5 d. Feels much better since getting the epidural. She actually feels rejuvenated. Encouraged to rest before it's time to push. Also discussed that she met criteria for gestational hypertension and labs are indicated. She is agreeable to this. OBJECTIVE BP 115/55 Pulse 97 Temp 36.9 ??C (Oral) Resp 18 Ht 167.6 cm Wt 90.8 kg SpO2 97% BMI 32.33 kg/m?? General: Alert, cooperative, no distress Heart Tracing: Baseline Rate (BR): 135 bpm Variability: Moderate Acceleration Pattern: Absent Deceleration Pattern: Early; Variable; Intermittent FHR Category: Category II Contraction Frequency (minutes): 2-3 Dilation: 7 Effacement (%): 90 Station: 0 If applicable to plan of care: Jerome Score: 10 Membrane Status: AROM Amniotic fluid color: Clear fluid Pitocin: N/A ASSESSMENT / PLAN #1 41 Weeks Gestation ([facility]) - Admitted with GEORGE - CBC on admission Hgb 14.4 Hct 43.6 Plt 275 - Hydrotherapy, natural methods for pain Management - AROM for augmentation - Requests epidural for pain management #2 Abnormal Ultrasound - Heart/Thorax Aortic arch view: Rodriguez scale suggest subjective narrowing but normal color flow doppler and velocity is identified. - Recommend echo #3 Thrombosis Deep Vein Without Delivery ([facility]) - L external iliac DVT diagnosed at 33 weeks - Lovenox 80 mg BID - Last dose 01/02 evening -Thrombophilia testing to be done #4 Velamentous Insertion Of Umbilical Cord Unspecified Trimester ([facility]) - 11/01 ultrasound Normal placental cord insertion. - 12/04 Advanced level ultrasound: Umbilical cord: Cord vessels: Unable to assess. Insertion site: velamentous insertion - Images reviewed by Dr. Blunt who was unable to definitively say yes or no to velamentous cord insertion #5 Type A Blood Rhesus Negative - Type and screen on cord blood - RhoGAM as indicated - Positive RBC antibody on admission type and screen - ID detected no antibodies #6 Gestational Hypertension - Mild range blood pressures 4 hours or more apart meeting criteria for gHTN - Labs ordered: AST, Creatinine, CBC w/o diff, P/C R #6 Encounter For Supervision Of Normal First Unspecified Trimester ([facility]) PLAN: LABOR COURSE: Time of cervical ripening intervention: N/A Time Pitocin started: N/A Time of AROM: 01/05 @ 4 Time of IUPC/FSE placement: N/A Time when deemed in active labor: 01/04 @ 7590 - Continue with current management plan - Recheck cervix in 1-2 hours or when clinically indicated - Epidural effective - Labs ordered: CBC, creatinine, AST, P/CR - Continue with bedside support - Encourage frequent position changes Discussed gHTN is high blood pressure of which usually resolves by 6 weeks . Cure is delivery. Labs are to distinguish between pre eclampsia and gestational hypertension. Cure forboth is delivery. Savanna Escobar APRN, CNM ER DEVELOPER * Savanna Escobar APRN, CNM - 01/05/2025 4:06 AM CST SUBJECTIVE Ashley Almanza is a 24 y.o. at 41 w 5 d. Ashley is requesting an epidural and cervical check for progress. OBJECTIVE BP 126/77 (BP Location: Left arm;Upper, Patient Position: Lying) Pulse 94 Temp 36.9 ??C (Oral) Resp 16 Ht 167.6 cm Wt 90.8 kg SpO2 98% BMI 32.33 kg/m?? General: Alert, cooperative, no distress Heart Tracing: Baseline Rate (BR): 135 bpm Variability: Moderate Acceleration Pattern: Absent Deceleration Pattern: Variable; Intermittent FHR Category: Category II Contraction Frequency (minutes): 1-4 Dilation: 7 Effacement (%): 90 Station: 0 Membrane Status: AROM Amniotic fluid color: Clear fluid Pitocin: N/A ASSESSMENT / PLAN #1 41 Weeks Gestation ([facility]) - Admitted with GEORGE - CBC on admission Hgb 14.4 Hct 43.6 Plt 275 - Hydrotherapy, natural methods for pain Management - AROM for augmentation - Requests epidural for pain management #2 Abnormal Ultrasound - Heart/Thorax Aortic arch view: Rodriguez scale suggest subjective narrowing but normal color flow doppler and velocity is identified. - Recommend echo #3 Thrombosis Deep Vein Without Delivery ([facility]) - L external iliac DVT diagnosed at 33 weeks - Lovenox 80 mg BID - Last dose 01/02 evening -Thrombophilia testing to be done #4 Velamentous Insertion Of Umbilical Cord Unspecified Trimester (HCC) - 11/01 ultrasound Normal placental cord insertion. - 12/04 Advanced level ultrasound: Umbilical cord: Cord vessels: Unable to assess. Insertion site: velamentous insertion - Images reviewed by Dr. Blunt who was unable to definitively say yes or no to velamentous cord insertion #5 Type A Blood Rhesus Negative - Type and screen on cord blood - RhoGAM as indicated - Positive RBC antibody on admission type and screen - ID detected no antibodies #6 Encounter For Supervision Of Normal First Unspecified Trimester ([facility]) PLAN: LABOR COURSE: Time of cervical ripening intervention: N/A Time Pitocin started: N/A Time of AROM: 01/05 @ 0224 Time of IUPC/FSE placement: N/A Time when deemed in active labor: 01/04 @ 2230 - Continue with current management plan - Recheck cervix in 2 hours or when clinically indicated - Plan epidural now - Continue with bedside support - Encourage frequent position changes Savanna Escobar APRN, CNM ER DEVELOPER * Savanna Escobar APRN, CNM - 01/05/2025 2:53 AM CST SUBJECTIVE Ashley Almanza is a 24 y.o. at 41 w 5 d. Asking for nitrous OBJECTIVE BP 126/77 (BP Location: Left arm;Upper, Patient Position: Lying) Pulse 94 Temp 37 ??C (Oral) Resp 16 Ht 167.6 cm Wt 90.8 kg SpO2 98% BMI 32.33 kg/m?? General: Alert, cooperative, no distress Heart Tracing: Baseline Rate (BR): 135 bpm Variability: Moderate Acceleration Pattern: Absent Deceleration Pattern: Variable; Intermittent FHR Category: Category II Contraction Frequency (minutes): 2-4 Dilation: 6 Effacement (%): 90 Station: 0 Membrane Status: AROM Amniotic fluid color: Clear fluid Pitocin: N/A ASSESSMENT / PLAN #1 41 Weeks Gestation ([facility]) - Admitted with GEORGE - CBC on admission Hgb 14.4 Hct 43.6 Plt 275 - Hydrotherapy, natural methods for pain Management - AROM for augmentation - Nitrous for pain management #2 Abnormal Ultrasound - Heart/Thorax Aortic arch view: Rodriguez scale suggest subjective narrowing but normal color flow doppler and velocity is identified. - Recommend echo #3 Thrombosis Deep Vein Without Delivery ([facility]) - L external iliac DVT diagnosed at 33 weeks - Lovenox 80 mg BID - Last dose 01/02 evening -Thrombophilia testing to be done #4 Velamentous Insertion Of Umbilical Cord Unspecified Trimester ([facility]) - 11/01 ultrasound Normal placental cord insertion. - 12/04 Advanced level ultrasound: Umbilical cord: Cord vessels: Unable to assess. Insertion site: velamentous insertion - Images reviewed by Dr. Blunt who was unable to definitively say yes or no to velamentous cord insertion #5 Type A Blood Rhesus Negative - Type and screen on cord blood - RhoGAM as indicated - Positive RBC antibody on admission type and screen - ID detected no antibodies #6 Encounter For Supervision Of Normal First Unspecified Trimester ([facility]) PLAN: LABOR COURSE: Time of cervical ripening intervention: N/A Time Pitocin started: N/A Time of AROM: 01/05 @ 0224 Time of IUPC/FSE placement: N/A Time when deemed in active labor: 01/04 @ 2230 - AROM for labor augmentation after RBA discussion - Nitrous for pain management - Recommended cervical check in a couple of hours to assess whether our intervention has worked or not. - If there is no change in dilation at next check recommend we start IV Pitocin - Encourage frequent position changes - Continue with bedside support Savanna Escobar APRN, CNM ER DEVELOPER * Savanna Escobar APRN, CNM - 01/05/2025 1:51 AM CST SUBJECTIVE Ashley Almanza is a 24 y.o. at 41 w 5 d. Ashley agreed to a cervical check to assess progress. OBJECTIVE BP 126/77 (BP Location: Left arm;Upper, Patient Position: Lying) Pulse 110 Temp 37 ??C (Oral) Resp 14 Ht 167.6 cm Wt 90.8 kg SpO2 97% BMI 32.33 kg/m?? General: Alert, cooperative, no distress Heart Tracing: Baseline Rate (BR): 140 bpm Variability: Moderate Acceleration Pattern: Absent Deceleration Pattern: Early; Variable; Intermittent FHR Category: Category II Contraction Frequency (minutes): 2-4 Dilation: 6 Effacement (%): 90 Station: 0 Cervix unchanged over 3 hours. Membrane Status: Intact Pitocin: N/A ASSESSMENT / PLAN #1 41 Weeks Gestation ([facility]) - Admitted with GEORGE - CBC on admission Hgb 14.4 Hct 43.6 Plt 275 - Hydrotherapy, natural methods for pain management #2 Abnormal Ultrasound - Heart/Thorax Aortic arch view: Rodriguez scale suggest subjective narrowing but normal color flow doppler and velocity is identified. - Recommend echo #3 Thrombosis Deep Vein Without Delivery (HCC) - L external iliac DVT diagnosed at 33 weeks - Lovenox 80 mg BID - Last dose 01/02 evening -Thrombophilia testing to be done #4 Velamentous Insertion Of Umbilical Cord Unspecified Trimester (HCC) - 11/01 ultrasound Normal placental cord insertion. - 12/04 Advanced level ultrasound: Umbilical cord: Cord vessels: Unable to assess. Insertion site: velamentous insertion - Images reviewed by Dr. Blunt who was unable to definitively say yes or no to velamentous cord insertion #5 Type A Blood Rhesus Negative - Type and screen on cord blood - RhoGAM as indicated - Positive RBC antibody on admission type and screen - ID detected no antibodies #6 Encounter For Supervision Of Normal First Unspecified Trimester (HCC) PLAN: LABOR COURSE: Time of cervical ripening intervention: N/A Time Pitocin started: N/A Time of SROM/AROM: N/A Time of IUPC/FSE placement: N/A Time when deemed in active labor: 01/04 @ 2230 Discussed with Ashley, her and doc that her cervix hasn't changed over the past 3 hours andthat we don't want to keep laboring this way and not make progress. Recommended augmentation of labor with Pitocin. Her asked what would happen if her cervix didn't change despite Pitocin. AROM was an option at that point. I also offered either Pitocin or AROM as a first line of augmentation. They will discuss and let us know. They denied needing any further information to make their decision. It was offered that even after they made their decision we could discuss further if needed. Savanna Escobar APRN, CNM ER DEVELOPER * Savanna Escobar APRN, CNM - 01/05/2025 12:41 AM CST In to check on Ashley. SUBJECTIVE Ashley Almanza is a 24 y.o. at 41 w 5 d. Has been unable to void since being in the tub. Currently in the shower. Vomiting but coping with contractions. OBJECTIVE BP 137/90 Pulse 110 Temp 37 ??C (Oral) Resp 16 Ht 167.6 cm Wt 90.8 kg SpO2 98% BMI 32.33 kg/m?? General: Alert, cooperative, no distress Heart Tracing: Baseline Rate (BR): 140 bpm Variability: Minimal (to moderate) Acceleration Pattern: Absent Deceleration Pattern: Variable; Intermittent FHR Category: Category II Contraction Frequency (minutes): 2-4 Exam deferred Membrane Status: Intact Pitocin: N/A ASSESSMENT / PLAN #1 41 Weeks Gestation ([facility]) - Admitted with GEORGE - CBC on admission Hgb 14.4 Hct 43.6 Plt 275 - Hydrotherapy, natural methods for pain management #2 Abnormal Ultrasound - Heart/Thorax Aortic arch view: Rodriguez scale suggest subjective narrowing but normal color flow doppler and velocity is identified. - Recommend echo #3 Thrombosis Deep Vein Without Delivery (HCC) - L external iliac DVT diagnosed at 33 weeks - Lovenox 80 mg BID - Last dose 01/02 evening -Thrombophilia testing to be done #4 Velamentous Insertion Of Umbilical Cord Unspecified Trimester ([facility]) - 11/01 ultrasound Normal placental cord insertion. - 12/04 Advanced level ultrasound: Umbilical cord: Cord vessels: Unable to assess. Insertion site: velamentous insertion - Images reviewed by Dr. Blunt who was unable to definitively say yes or no to velamentous cord insertion #5 Type A Blood Rhesus Negative - Type and screen on cord blood - RhoGAM as indicated - Positive RBC antibody on admission type and screen - ID detected no antibodies #6 Encounter For Supervision Of Normal First Unspecified Trimester (HCC) PLAN: LABOR COURSE: Time of cervical ripening intervention: N/A Time Pitocin started: N/A Time of SROM/AROM: N/A Time of IUPC/FSE placement: N/A Time when deemed in active labor: 01/04 @ 2230 - Continue with current management plan - Recheck cervix when clinically indicated or per [facility] request - Pain management plan: natural methods, sterile water injections/papules - Continue with bedside support - Encourage frequent position changes Savanna Escobar APRN, CNM ER DEVELOPER * Henri Blunt M.D. - 01/04/2025 10:49 PM CST OB Staff: Patient admitted to actuarial internship service. She was met but not examined. She requests minimal involvement by all providers and wants to stay on actuarial internship service. 24 y.o. 41w4d admitted for prolonged latent labor. As over 41 weeks gestation plan was for admission and induction or augmentation of labor. FHT: Baseline 140, Moderate variability, Accels absent, No decels. Category I Tracing. [place]: contractions difficult to monitor but patient is uncomfortable. Most recent cervical exam at 6 cm dilated. Now in active labor. Assessment & Plan: #1 Induction of Labor at Term - 41 weeks. Patient desires minimal interventions. #2 DVT during was on therapeutic Lovenox until 01/02. Plan to restart #3 Can't rule out cardiac anomaly possible aortic arch abnormality OB team available when needed, desired. Management by actuarial internship team. Luca Blunt M.D. ER DEVELOPER * Savanna Escobar APRN, CNM - 01/04/2025 10:47 PM CST SUBJECTIVE Ashley Almanza is a 24 y.o. at 41 w 4 d. In to check on Ashley. She was in the process of gettingout of the tub. Working through contractions but coping well. Her Chandler and Doc Carlie at bedside and supportive. Large emesis. Ashley was agreeable to a cervical exam with results given to Manjit then Carlie could tell her if it was good news. OBJECTIVE BP 137/90 Pulse 110 Temp 37 ??C (Oral) Resp 16 Ht 167.6 cm Wt 90.8 kg SpO2 98% BMI 32.33 kg/m?? General: Alert, cooperative, no distress Heart Tracing: Baseline Rate (BR): 145 bpm Variability: Moderate Acceleration Pattern: 15x15 Deceleration Pattern: Variable No data recorded Contraction Frequency (minutes): 1-4 Dilation: 6 Effacement (%): 90 Station: 0 Membrane Status: Intact Pitocin: N/A ASSESSMENT / PLAN #1 41 Weeks Gestation ([facility]) - Admitted with GEORGE - CBC on admission Hgb 14.4 Hct 43.6 Plt 275 - Hydrotherapy, natural methods for pain management #2 Abnormal Ultrasound - Heart/Thorax Aortic arch view: Rodriguez scale suggest subjective narrowing but normal color flow doppler and velocity is identified. - Recommend echo #3 Thrombosis Deep Vein Without Delivery ([facility]) - L external iliac DVT diagnosed at 33 weeks - Lovenox 80 mg BID - Last dose 01/02 evening -Thrombophilia testing to be done #4 Velamentous Insertion Of Umbilical Cord Unspecified Trimester ([facility]) - 11/01 ultrasound Normal placental cord insertion. - 12/04 Advanced level ultrasound: Umbilical cord: Cord vessels: Unable to assess. Insertion site: velamentous insertion - Images reviewed by Dr. Blunt who was unable to definitively say yes or no to velamentous cord insertion #5 Type A Blood Rhesus Negative - Type and screen on cord blood - RhoGAM as indicated - Positive RBC antibody on admission type and screen - ID detected no antibodies #6 Encounter For Supervision Of Normal First Unspecified Trimester ([facility]) PLAN: LABOR COURSE: Time of cervical ripening intervention: N/A Time Pitocin started: N/A Time of SROM/AROM: N/A Time of IUPC/FSE placement: N/A Time when deemed in active labor: 01/04 @ 2230 - Continue with current management plan - Recheck cervix when clinically indicated or per Ashley's request - Pain management plan: natural methods, sterile water injections/papules - Continue with bedside support - Encourage frequent position changes Savanna Escobar APRN, CNM ER DEVELOPER * Savanna Escobar APRN, CNM - 01/04/2025 7:43 PM CST Assuming care for Ashley Almanza SUBJECTIVE Ashley Almanza is a 24 y.o. at 41 w 4 d. In to meet Ashley and her Chandler. Ashley was on the birthing ball at bedside breathing through contractions. She appears to be coping well. She and her had no concerns or questions OBJECTIVE BP 121/79 (BP Location: Left arm;Upper, Patient Position: Sitting) Pulse (!) 127 Temp 36.5 ??C (Oral) Resp 16 Ht 167.6 cm Wt 90.8 kg SpO2 97% BMI 32.33 kg/m?? General: Alert, cooperative, no distress Heart Tracing: Baseline Rate (BR): 135 bpm Variability: Moderate Acceleration Pattern: 15x15 Deceleration Pattern: None No data recorded Contraction Frequency (minutes): 2-3 Exam deferred Membrane Status: Intact Pitocin: N/A ASSESSMENT / PLAN #1 41 Weeks Gestation ([facility]) - Admitted for GEORGE - Declined IV #2 Abnormal Ultrasound - Heart/Thorax Aortic arch view: Rodriguez scale suggest subjective narrowing but normal color flow doppler and velocity is identified. - Recommend echo #3 Thrombosis Deep Vein Without Delivery ([facility]) - L external iliac DVT diagnosed at 33 weeks - Lovenox 80 mg BID - Last dose 01/02 evening -Thrombophilia testing to be done #4 Velamentous Insertion Of Umbilical Cord Unspecified Trimester ([facility]) - 11/01 ultrasound Normal placental cord insertion. - 12/04 Advanced level ultrasound: Umbilical cord: Cord vessels: Unable to assess. Insertion site: velamentous insertion #5 Type A Blood Rhesus Negative - Type and screen on cord blood - RhoGAM as indicated #6 Encounter For Supervision Of Normal First Unspecified Trimester ([facility]) PLAN: LABOR COURSE: Time of cervical ripening intervention: N/A Time Pitocin started: N/A Time of SROM/AROM: N/A Time of IUPC/FSE placement: N/A Time when deemed in active labor: N/A - Continue with current management plan - Offer cervical check in 15 minutes or when clinically indicated. plan preference is no cervical checks - Continue with bedside support - Encourage frequent position changes Savanna Escobar APRN, CNM ER DEVELOPER * Viola Mcintosh APRN, CNM - 01/04/2025 5:11 PM CST CNM in to meet patient, as patient is requesting low intervention labor and delivery. DIRK Arteaga and Doc Sexton at bedside with patient. Patient is working through contractions with natural interventions including comb, birthing ball and pressure on her hips. Reviewed plan with patient, and patient would like FOB to announce the sex of baby. FOB to also cut the umbilical cord. Patient denies any questions or concerns at this time. Plan to repeat SVE around 1999 if patient agreeable at that time. Patient unaware of previous SVE, per her request. ER DEVELOPER ER DEVELOPER documented in this encounter H&P Notes * Shahida Patel D.O. - 01/04/2025 5:13 PM CST Labor & Delivery H&P SUBJECTIVE Ashley is a 24 y/o at 41w3d (dated based on reported 7 week ultrasound, images unavailable for review) who presents today for contractions for the past 24 hours which have worsened throughout the day. Denies vaginal bleeding, loss of fluid. Endorses normal movement. Denies GI/urinary concerns. Denies fever/chills. Her antepartum course is complicated by: 1) Left external iliac DVT, diagnosed 10/2024 (33 weeks gestation) Currently on therapeutic Lovenox, LAST DOSE 01/02 PM 2) Rh negative per review of scanned records, received Rhogam 10/09/2024 3) Possible narrowing of aorta Noted on [facility] imaging, Aortic Arch unable to be imaged at [facility] Recommend echocardiogram No known family history of congenital cardiac conditions Denies other medical or surgical history. Labs Reviewed in Media Tab: GBS neg 11/30 (expires at midnight) RPR neg, HepBsAg neg, HepBc Ab neg, HIV neg, Hep C neg, Rubella non-immune 1hr GTT 130 g/dL OB History Para Term AB Living 1 SAB IAB Ectopic Molar Multiple Live Births # Outcome Date GA Lbr Joshua/2nd Weight Sex Type Anes PTL Lv 1 Current OBJECTIVE VITAL SIGNS Temperature: [36.4 ??C-36.5 ??C] 36.5 ??C Heart Rate: [90] 90 Blood Pressure: (126)/(87) 126/87 SpO2: [100 %] 100 % Pulse Rate: [84] 84 PHYSICAL EXAMINATION Gen: Alert, appears uncomfortable with contractions, breathing heavily through Chest: non-labored respirations overall, deep breathing with contractions Abdomen: gravid, non-tender to palpation SVE: 4-5/60/-1, soft, anterior FHT: Initially 125 bpm, minimal variability, no accels, no decels TOCO: every 3-4 min Shortly after some juice in triage, NST reactive with moderate variability and +accels Bedside US: Cephalic on presentation, subjectively normal fluid DIAGNOSTICS I have reviewed the non-stress test(s) and scanned labs Blood Type: Antibody Screen: Lab Results Component Value Date ABSCREEN Positive 12/04/2024 ASSESSMENT / PLAN Ashley is a 24 y/o at 41w3d (dated based on reported 7 week ultrasound, images unavailable for review) who presents today for contractions, with suspected spontaneous labor. Of note, noted to havenon-reactive NST initially upon triage. In the setting of initial non-reactive NST with post term ge station, recommend admission for augmentation of labor. Discussed recommendation for augmentation extensively with Ashley and family, including AROM and/or pitocin if indicated. She is agreeable to this recommendation and agreeable to stay for delivery. Seen at bedside with CNM provider, Viola Mcintosh. Subsequently, we discussed her wishes of obstetric providers in care. She will be managed under midwifery care during the day, but we discussed this would be subject to change with change in shift coverage. Also reviewed that from patient safety standpoint, resident providers will be involved in her care, which she is agreeable to. She does decline IV placement on admission, but is agreeable to getting her admission labs drawn. We discussed that lack of IV could increase risk to both maternal and care-- discussed delay incare if maternal hemorrhage or if distress, with subsequent adverse maternal and/or outcomes. Last Lovenox dose 11/4 PM per patient. Labor management per CNM colleagues. At this time, anticipate ongoing expectant management and repeat SVE. Discussed if unchanged, and specifically if concerns for FHR status, would recommend IV pitocin and AROM. She was agreeable to that recommendation. All questions answered to the best of my ability. Shahida Patel D.O. PGY7- Maternal Medicine ER DEVELOPER ER DEVELOPER documented in this encounter Consult Notes * Cari Malloy RDN, LD - 01/05/2025 7:56 AM CSTAssociated Order(s): IP CONSULT TO DIETITIAN Clinical Nutrition: Initial Assessment RECOMMENDATIONS REQUIRING MD/PROVIDER ORDERS: No changes at this time, continue current nutrition orders. NUTRITION ASSESSMENT: Ms. Almanza is a 24 y.o. female at 41w3d (dated based on reported 7 week ultrasound, images unavailable for review) who presents for labor and delivery of infant. Details of nutrition history: Per review of medical record, no current nutrition concerns are noted. Current Diet Order: Adult Diet Regular Height: 167.6 cm Admission Weight: 90.8 kg (01/04/2025) Current Weight: 90.8 kg Limited weight history BMI (Calculated): 32.3 kg/m?? DIAGNOSIS: None identified at this time. PLAN/INTERVENTION/MONITORING: Medical nutrition therapy interventions not needed at this time. Clinical Nutrition will follow along during hospitalization and intervene as appropriate or respond to medical team requests. Clinical Nutrition will sign off but continue to screen for nutrition risk per departmental guidelines. Please send Dietitian consult if any needs or questions arise. ER DEVELOPER documented in this encounter Nursing Notes * Bell Pereyra M.S.N., R.N. - 01/07/2025 1:46 PM CST Shift Goals: Clinical Goals for the Shift: VSS, pain control, , rest and bonding Identify possible barriers to meeting goals/advancing plan of care: none End of Shift Summary: Patient progressing as expected. Pain well controlled. Supporting throughout shift. Continuing to encourage patient to rest and bob with baby. Patient asking appropriate questions and receptive to teaching. Intentional rounding performed during shift. Discharge instructions completed, AVS given, discharge videos completed Problem: PAIN - ADULT Goal: VERBALIZES/DISPLAYS ADEQUATE COMFORT LEVEL OR BASELINE COMFORT LEVEL Outcome: Completed Problem: KNOWLEDGE DEFICIT Goal: Patient/family/caregiver demonstrates understanding of disease process, treatment plan, medications, and discharge instructions Outcome: Completed Problem: INFECTION - ADULT Goal: Absence of infection during hospitalization Outcome: Completed Problem: SKIN/TISSUE INTEGRITY Goal: Skin/Tissue integrity maintained or improved Outcome: Completed Goal: Oral and Nasal mucous membranes remain intact Outcome: Completed Problem: SAFETY ADULT Goal: Maintain a safe environment Outcome: Completed Problem: SAFETY ADULT - RISK FOR FALL AND OR FALL INJURY Goal: Patient remains free from fall/fall injury Outcome: Completed Problem: DISCHARGE PLANNING Goal: Patient discharge needs identified Outcome: Completed Problem: Goal: Optimize recovery Outcome: Completed Goal: Facilitate maternal - bonding Outcome: Completed Problem: ALTERATION IN THE BREAST Goal: Optimize infant feeding at the breast Outcome: Completed Problem: INADEQUATE LATCH, SUCK OR SWALLOW Goal: Demonstrate ability to effectively breastfeed and/or establish milk supply Outcome: Completed ER DEVELOPER * Samantha No M.S.N., R.N., RNRenetta-TINO - 01/07/2025 5:09 AM CST Shift Goals: Clinical Goals for the Shift: VSS, pain control, , rest and bonding Identify possible barriers to meeting goals/advancing plan of care: none End of Shift Summary: Patient progressing as expected. Pain well controlled. Supporting throughout shift. Continuing to encourage patient to rest and bob with baby. Patient asking appropriate questions and receptive to teaching. Intentional rounding performed during shift. Bedside handoff done with next RN and goals reviewed. ER DEVELOPER * Samantha No M.S.Michael, R.N., RNRenetta-SURESHN - 01/06/2025 5:08 AM CST Shift Goals: Clinical Goals for the Shift: VSS, pain control, voiding , BF q 2-3h, rest and bonding Identify possible barriers to meeting goals/advancing plan of care: none End of Shift Summary: Patient progressing as expected. Pain well controlled. Supporting throughout shift. Continuing to encourage patient to rest and bob with baby. Patient asking appropriate questions and receptive to teaching. Intentional rounding performed during shift. Bedside handoff done with next RN and goals reviewed. ER DEVELOPER * Yenny Adhikari R.N. - 01/05/2025 4:43 PM CST Shift Goals: Clinical Goals for the Shift: healthy mom, healthy baby Identify possible barriers to meeting goals/advancing plan of care: none End of Shift Summary: Patient progressing towards goals. Stable for transfer to on completion of recovery. Vitals signs stable. Patient up to chair assist of two. Stable gait. Able to verbalize understanding of information and education provided. Transferred by wheelchair. Report to be given to RN. Placenta was brought home by patient's , the family was instructed about potential biological risks, the authorization form was reviewed and signed, and the placenta was removed from the hospital prior to transfer to . ER DEVELOPER * Lindsay Guevara R.N. - 01/05/2025 4:01 PM CST Shift Goals: Clinical Goals for the Shift: healthy mom, healthy baby Identify possible barriers to meeting goals/advancing plan of care: none End of Shift Summary: RN reviewed goals for the shift with patient. Handoff given to oncoming RN. Problem: - VAGINAL/ SECTION Goal: Optimize and maternal status during the process Outcome: Completed ER DEVELOPER * Fang Pereyra R.N. - 01/04/2025 11:08 PM CST Problem: PAIN - ADULT Goal: VERBALIZES/DISPLAYS ADEQUATE COMFORT LEVEL OR BASELINE COMFORT LEVEL Outcome: Progressing Problem: KNOWLEDGE DEFICIT Goal: Patient/family/caregiver demonstrates understanding of disease process, treatment plan, medications, and discharge instructions Outcome: Progressing Problem: INFECTION - ADULT Goal: Absence of infection during hospitalization Outcome: Progressing Problem: SKIN/TISSUE INTEGRITY Goal: Skin/Tissue integrity maintained or improved Outcome: Progressing Goal: Oral and Nasal mucous membranes remain intact Outcome: Progressing Problem: SAFETY ADULT Goal: Maintain a safe environment Outcome: Progressing Problem: SAFETY ADULT - RISK FOR FALL AND OR FALL INJURY Goal: Patient remains free from fall/fall injury Outcome: Progressing Problem: DISCHARGE PLANNING Goal: Patient discharge needs identified Outcome: Progressing Problem: - VAGINAL/ SECTION Goal: Optimize and maternal status during the process Outcome: Progressing Shift Goals: Clinical Goals for the Shift: healthy mom, healthy baby Identify possible barriers to meeting goals/advancing plan of care: none End of Shift Summary: RN reviewed goals for the shift with patient. Handoff given to oncoming RN. ER DEVELOPER * Evie Langley R.N. - 01/04/2025 4:25 PM CST Problem: PAIN - ADULT Goal: VERBALIZES/DISPLAYS ADEQUATE COMFORT LEVEL OR BASELINE COMFORT LEVEL Outcome: Progressing Problem: KNOWLEDGE DEFICIT Goal: Patient/family/caregiver demonstrates understanding of disease process, treatment plan, medications, and discharge instructions Outcome: Progressing Problem: INFECTION - ADULT Goal: Absence of infection during hospitalization Outcome: Progressing Problem: SKIN/TISSUE INTEGRITY Goal: Skin/Tissue integrity maintained or improved Outcome: Progressing Goal: Oral and Nasal mucous membranes remain intact Outcome: Progressing Problem: SAFETY ADULT Goal: Maintain a safe environment Outcome: Progressing Problem: SAFETY ADULT - RISK FOR FALL AND OR FALL INJURY Goal: Patient remains free from fall/fall injury Outcome: Progressing Problem: DISCHARGE PLANNING Goal: Patient discharge needs identified Outcome: Progressing Problem: - VAGINAL/ SECTION Goal: Optimize and maternal status during the process Outcome: Progressing Shift Goals: Maintain status as long as maternal and status allows. Identify possible barriers to meeting goals/advancing plan of care: None End of Shift Summary: RN reviewed goals for the shift with patient. RN ER DEVELOPER documented in this encounter Miscellaneous Notes * Note - Jackelyn Lyons R.N., CLC - 01/07/2025 11:16 AM CST This note was copied from a baby's chart. SUBJECTIVE Girl Ashley Almanza, at 2 days old of age, was seen for a Consultation. Consultation Reason for Consult: Follow-up assessment OBJECTIVE Delivery Details: Risk Factors: Other Obstetric Procedures-This : None Labor Complications: None Delivery Type: Vaginal, Spontaneous [place] Weight: 3570 g 1 Minute 5 Minute 10 Minute Totals: 8 9 Maternal Breast Assessment Breast Size: Average Breast Characteristics: Round, Symmetrical Nipple Type-Right: Everted Nipple Assessment-Right: Intact Right Breast: Soft Nipple Type-Left: Everted Nipple Assessment-Left: Intact Left Breast: Soft Assessment class: No Has mother breastfed before?: No. Exclusive Pump and Bottle Feed: No Assessment Infant State: Sleepy Latch Score: Latch: Grasps breast, tongue down, lips flanged, rhythmic sucking Audible Swallowing: Spontaneous and intermittent (24 hours old) Type of Nipple: Everted (After stimulation) Comfort (Breast/Nipple): Soft/non-tender Hold (Positioning): No assist from staff, mother able to position/hold LATCH Score: 10 Input: 8 feedings/24 hours Output: 2 voids/24 hours, 1 stools/24 hours, Stool Amount: Small Stool Appearance: Meconium Stool Color: Black weight: 3570 g Current weight: Weight: 3405 g Percent of weight change since : -5% Weight change since previous weight: Weight Change (gm) : -55 Pct Wt Change: -4.62 % ASSESSMENT/PLAN I met with Ashley for a consult. She reports going well and denies any nippleor breast pain at this time. Baby had just finished feeding 30 minutes prior to our visit. Encouraged support at next feeding if desired. I spoke with mom about assessing for adequate feedings by offering the breast with baby's cues or waking as needed to feed 10 or more times in 24 hours. She can listen for swallows, and monitor wet and dirty diapers to assess for adequate intake. I encouraged her to track her feedings and wet and dirty diapers until her milk volumes are established and baby is gaining weight. We reviewed outpatient resources and I encouraged her to call or come in with any questions or concerns. Follow Up: follow up plan: as needed Jackelyn Lyons R.N., EMILY ER DEVELOPER * Note - Jackelyn Lyons R.N., CLC - 01/06/2025 12:02 PM CST This note was copied from a baby's chart. SUBJECTIVE Girl Ashley Almanza, at 1 days old of age, was seen for a Consultation. Consultation Reason for Consult: Initial assessment OBJECTIVE Delivery Details: Risk Factors: Other Obstetric Procedures-This : None Labor Complications: None Delivery Type: Vaginal, Spontaneous [place] Weight: 3570 g 1 Minute 5 Minute 10 Minute Totals: 8 9 Maternal Breast Assessment Breast Size: Average Breast Characteristics: Round, Symmetrical Nipple Type-Right: Everted Nipple Assessment-Right: Intact Right Breast: Soft Nipple Type-Left: Everted Nipple Assessment-Left: Intact Left Breast: Soft Assessment class: No Has mother breastfed before?: No. Exclusive Pump and Bottle Feed: No Assessment Infant State: Sleepy Latch Score: Latch: Grasps breast, tongue down, lips flanged, rhythmic sucking Audible Swallowing: Spontaneous and intermittent (24 hours old) Type of Nipple: Everted (After stimulation) Comfort (Breast/Nipple): Soft/non-tender Hold (Positioning): No assist from staff, mother able to position/hold infant LATCH Score: 10 Infant Input: 4 feedings/24 hours Infant Output: 0 voids/24 hours, 4 stools/24 hours, Stool Amount: Small Stool Appearance: Meconium Stool Color: Black weight: 3570 g Current weight: Weight: 3570 g (Filed from Delivery Summary) Percent of weight change since : 0% Weight change since previous weight: Weight Change (gm) : 0 ASSESSMENT/PLAN I met with Ashley for a consult. She reports baby well. Baby has been sleepy but reassurance provided as baby is under 24 hours old. At the time of our visit, baby was latched deeply at the breast. We talked about normal feeding patterns and behaviors. I encouraged skin to skin and feeding with any cues. She should wake and offer the breast every 2-3 hours if baby is not cueing consistently for feeds yet. I encouraged her to call for assistance with feeding as needed. Follow Up: follow up plan: consult Jackelyn Lyons R.N., EMILY ER DEVELOPER * L&D Delivery Note - Patrizia Bradshaw CNM - 01/05/2025 4:47 PM CST 01/05/2025 Ashley Almanza 24 y.o. Archie, Girl Ashley [[phone]] Delivery Providers Delivering clinician: Patrizia Bradshaw CNM Provider Role Yenny Adhikari R.N. Delivery Nurse Lindsay Guevara R.N. Nursery Nurse Interface Engineer NICU Nurse Review the Delivery Report for details. GA: 41w5d GP: GBS: Blood Loss: Delivery Blood Loss: 250 mL (01/04/2025 2:48 PM - 01/05/2025 4:48 PM) Complications: Other DVT, Velamentous cord insertion, Gestational Hypertension Labor Complications: None Cervical Ripening: No Delivery Type: Vaginal, Spontaneous ROM to Delivery Time: (Delivered) Hours: 13 Minutes: 21 [place] Sex: female Weight: [place] Length: 1 Minute 5 Minute 10 Minute Totals: 8 9 Delivery Details: Ashley Almanza, is a 24 y.o. with an Estimated Date of Delivery 12/24/2024, by Other Basis. Gestational age is 41w5d. She was admitted to the hospital for spontaneous onset of labor. heart tones on admission were category 1. Her was otherwise complicated by: gestational hypertension and DVT at 33 weeks- on prophylaxis until 01/02, and velamentous cord insertion. Her labor was augmented with artificial rupture of membranes and IV oxytocin. She utilized epiduralfor pain management. Status of bag of conde AROM was performed during labor Fluid Characteristics:Clear. heart tones during active labor were category 1 and 2. She was complete at 01/05/2025, 2:10 PM and had a NSVDat 3:45 PM. heart tones during second stage of labor were category 2 Baby delivered Vertex, restituted tothe left. The anterior and posterior shoulders delivered without difficulty. Nuchal cord: not present. The cord was clamped and cut with delayed cord clamping. Physiologic management of the 3rd stageoccured with gentle cord traction and maternal pushing efforts and the placenta delivered spontaneously and intact at 01/05/2025 3:56 PM. Patient declined pitocin. Counseled on risks associated and patient declines. The family was instructed about the potential biological risks, the authorization form was reviewedand signed and the placenta was removed from the hospital. Cord gases sent:No Cord blood sent for infant ABO: Yes A pediatric care provider did not attend the delivery. Perineum and vagina were inspected and the following lacerations were noted: Perineal 1st Periurethral Repair was done in the usual fashion using Vicryl suture 3-0 Excellent hemostasis was noted. Repair done using exisiting epidural anesthesia. Both mother and infant in stable condition following the . The following counts were correct: sponges, needles, and instruments No complications Other Delivery Details: Roberto Almanza [[id number]] Labor Events Rupture date/time: 01/05/25 02:24 Rupture type: Artificial-AROM Fluid characteristics: Clear Fluid odor: No Labor type: Spontaneous Onset of Labor Cervical ripening done?: No Induction date/time: Augmentation: Oxytocin, AROM Augmentation date/time: Labor Complications Labor & delivery complications: None [place] Delivery Details Forceps attempted?: No Vacuum extractor attempted?: No Shoulder dystocia present?: No Cord Vessels: 3 vessels Resuscitation Laisha Bradshaw CNM ER DEVELOPER * Hospital Course - Isidra Prasad M.D. - 01/05/2025 3:03 AM CST The patient was admitted to the [facility] for induction of labor. Her was complicated by DVT at 33 weeks, Rh negative blood type, velamentous cord insertion, aortic arch narrowing. Her labor course was augmented with AROM, utilizing natural methods, nitrous, and hydrotherapy for pain management. Complications of labor included protracted labor. She had a , delivering a liveborn female with weight of 3.57 kg. Gestational age: 41w5d. occurred: 53:45 PM Perineal lacerations or episiotomy: First degree laceration and Periurethral laceration Lacerations were repaired with: 3-0 Vicryl Contraceptive methods administered during the delivery: None Both mother and baby were in stable condition at the conclusion of the procedure. When the patient met appropriate criteria, she was transferred to the floor. She received her care at [facility]. Patient is day 1 from vaginal delivery and is on our high-risk less due to continued prophylaxis effort DVT at 33 weeks. She has a history of gestational hypertension however blood pressures have been controlled and HELLP labs were normal on 01/05. On day 2 patient has been normotensive she remains on no medications. She will be discharged with a blood pressure cuff as well as precautions and a 2 3 blood pressure visit. She remains on the low 80 mg b.i.d.. Thrombophilia testing is to be done high-risk visitin 6 weeks. ER DEVELOPER ER DEVELOPER ER DEVELOPER ER DEVELOPER ER DEVELOPER documented in this encounter Plan of Treatment DateTypeDepartmentCare Team (Latest Contact Info)Kvldvnwbmym07/24/2025 2:30 PM CSTComprehensive Visit Department of Physical Medicine and Rehabilitation in [place], [place] [address] [place] [address] Milagro Hayes CNM [address] [place] [phone] Jelena Yi O.T., MOT [address] [place] [phone] NameTypePriorityAssociated DiagnosesOrder ScheduleObstetrics and Gynecology office visit (clinic)Outpatient ReferralRoutineExpected: 01/10/2025, Expires: 04/09/2026documented as of this encounter Procedures Procedure NamePriorityDate/TimeAssociated DiagnosisCommentsRHIG NAIMA, B Xnzhoeh1201/06/2025 6:58 AM CAREER DEVELOPER FETOMATERNAL BLEED, FLOW CYTO, B/PPiyoodi85/08/2025 6:58 AM CAREER DEVELOPER PROTEIN/CREATININE RATIO, RANDOM, YFJGMFvsgw21/07/2025 7:17 AM CAREER DEVELOPER CBC WITHOUT DIFFERENTIAL, YXxegh1601/05/2025 7:13 AM CAREER DEVELOPER ASPARTATE AMINOTRANSFERASE (AST), S/FKeaqb4101/05/2025 7:13 AM CAREER DEVELOPER CREATININE WITH EGFR, S/ITnpkd1501/05/2025 7:13 AM CAREER DEVELOPER SYPHILIS IGG W/ REFLEX, EIA, XUqpumya14/06/2025 5:41 PM CAREER DEVELOPER ANTIBODY OKUEYNYUXYSZMIYedccxx60/06/2025 5:41 PM CAREER DEVELOPER CBC WITHOUT DIFFERENTIAL, GZrzhamh46/06/2025 5:41 PM CAREER DEVELOPER TYPE AND PPZODWCrqnptj73/06/2025 5:41 PM CAREER DEVELOPER documented in this encounter Results * Fetomaternal Bleed, Flow Cytometry (01/06/2025 6:58 AM CAREER DEVELOPER)ComponentValueRef RangeTest MethodAnalysis TimePerformed AtPathologist SignatureFetal-Maternal BleedNegative0 - 3.75 mL01/06/2025 2:13 PM CSTDTLRh Immune Globulin1.0dose 01/06/2025 2:13 PM XWIWKSRvpnxvf43 ml of red blood cells is equivalent to 30 ml of whole blood. ??The use of RhIG should be determined based on local protocols and standard blood bank Rh testing. ??Calculations used to determi ne the RhIG dose can be found in the [facility] Lab Test Catalog. Due to differential RBC densities, aliquoting into or out of a sample tube can adversely affect the results. 01/06/2025 2:13 PM CSTDTLComment: ----ADDITIONAL INFORMATION---- This test was developed and its performance characteristics determined by [facility] in a manner consistent with CLIA requirements. This test has not been cleared or approved by the U.S. Food and Drug Administration. Specimen (Source)Anatomical Location / LateralityCollection Method / Volume Collection TimeReceived YfueXdjby42/08/2025 6:58 AM CST01/06/2025 8:46 AM CAREER DEVELOPER Narrative Authorizing ProviderResult TypeResult StatusH[facility] BLOOD NON ADD-ONFinal ResultPerforming OrganizationAddressCity/State/ZIP CodePhone Number [address] [address], [place] [address] * RhIG Naima (01/06/2025 6:58 AM CAREER DEVELOPER)ComponentValueRef RangeTest Method Analysis TimePerformed AtPathologist SignatureRhIG RosettePositiveNegative 01/06/2025 8:37 AM CSTDTLComment:See FMBP - Fetomaternal Bleed Flow Cytometry for bleed volume.Specimen (Source)Anatomical Location / Laterality Collection Method / VolumeCollection TimeReceived TimeBlood (Blood, Venous) 01/06/2025 6:58 AM CST01/06/2025 7:56 AM CAREER DEVELOPER Narrative Authorizing ProviderResult TypeResult [facility] BLOOD BANK TEST ORDERABLESFinal ResultPerforming OrganizationAddressCity/State/ZIP Code Phone Number [address] [address], [place] [address] * (ABNORMAL) Protein/Creatinine Ratio, Random, Urine (01/05/2025 7:17 AM CAREER DEVELOPER) ComponentValueRef RangeTest MethodAnalysis TimePerformed AtPathologist SignatureProtein, Total, Random, U30mg/dL01/05/2025 8:40 AM CSTDTLCreatinine, Random, R41525 - 326 mg/dL01/05/2025 8:40 AM CSTDTLProtein/Creatinine Ratio 0.19(H)<0.18 mg/mg01/05/2025 8:40 AM CSTDTLSpecimen (Source)Anatomical Location / LateralityCollection Method / VolumeCollection TimeReceived Time Urine (Urine, Catheter)01/05/2025 7:17 AM CST01/05/2025 7:40 AM CAREER DEVELOPER Narrative Authorizing ProviderResult TypeResult StatusSavanna Escobar RN L AND D, CNMLAB URINE ORDERABLESFinal ResultPerforming OrganizationAddressCity/State/[place] [address], [place] [address] * Creatinine with Estimated GFR (01/05/2025 7:13 AM CAREER DEVELOPER)ComponentValueRef Range Test MethodAnalysis TimePerformed AtPathologist SignatureCreatinine0.690.59 - 1.04 mg/dL01/05/2025 8:07 AM CSTDTLEstimated GFR (eGFR)>90>=60 mL/min/BSA 01/05/2025 8:07 AM CSTDTLComment: Estimated GFR calculated using the 2020 CKD_EPI creatinine equation. Specimen (Source)Anatomical Location / LateralityCollection Method / Volume Collection TimeReceived TimeBlood (Blood, Venous)01/05/2025 7:13 AM CAREER DEVELOPER 01/05/2025 7:24 AM CAREER DEVELOPER Narrative Authorizing ProviderResult TypeResult StatusSavanna Escobar RN L AND D, CNMLAB BLOOD ADD-ONFinal ResultPerforming OrganizationAddressCity/State/ZIP CodePhone Number [address] [address], [place] [address] * (ABNORMAL) CBC without Differential (01/05/2025 7:13 AM CAREER DEVELOPER)ComponentValueRef RangeTest MethodAnalysis TimePerformed AtPathologist LalpunuweWqgflkjuoq80.7 11.6 - 15.0 g/dL01/05/2025 7:39 AM NUWDBCBwrwtnlfwa13.335.5 - 44.9 %01/05/2025 7:39 AM CSTDTLErythrocytes4.663.92 - 5.13 x10(12)/L103/07/2024 7:39 AM CSTDTL MCV80.078.2 - 97.9 fL01/05/2025 7:39 AM CSTDTLRBC Distrib Width13.812.2 - 16.1 %01/05/2025 7:39 AM CSTDTLPlatelet Fuwhf859586 - 371 x10(9)/L103/07/2024 7:39 AM KCKNMBJdqosppbke72.8(H)3.4 - 9.6 x10(9)/L103/07/2024 7:39 AM CSTDTLSpecimen (Source)Anatomical Location / LateralityCollection Method / VolumeCollection TimeReceived TimeBlood (Blood, Venous)01/05/2025 7:13 AM CST01/05/2025 7:26 AM CAREER DEVELOPER Narrative Authorizing ProviderResult TypeResult StatusCanjerrell Escobar RN L AND D, CNMLAB BLOOD ADD-ONFinal ResultPerforming OrganizationAddressCity/State/[place] [address], [place] [address] * AST (Aspartate Aminotransferase) (01/05/2025 7:13 AM CAREER DEVELOPER)ComponentValueRef RangeTest MethodAnalysis TimePerformed AtPathologist SignatureAspartate Aminotransferase (AST), S128 - 43 U/L103/07/2024 8:07 AM CSTDTLSpecimen (Source)Anatomical Location / LateralityCollection Method / VolumeCollection TimeReceived TimeBlood (Blood, Venous)01/05/2025 7:13 AM CST01/05/2025 7:24 AM CAREER DEVELOPER Narrative Authorizing ProviderResult TypeResult StatusCanjerrell Escobar RN L AND D, CNMLAB BLOOD ADD-ONFinal ResultPerforming OrganizationAddressCity/State/ZIP CodePhone Number [facility] [address] [place] [address], [facility] [address] [place] [address] * Antibody Identification, Erythrocytes (01/04/2025 5:41 PM CAREER DEVELOPER)ComponentValue Ref RangeTest MethodAnalysis TimePerformed AtPathologist SignatureAntibody IdentificationNo antibody skfvypci21/06/2025 8:00 PM CSTDTLSpecimen (Source) Anatomical Location / LateralityCollection Method / VolumeCollection Time Received Time01/04/2025 5:41 PM CST01/04/2025 5:51 PM CAREER DEVELOPER Narrative [facility] - 01/04/2025 8:00 PM CAREER DEVELOPER Specimen Information: Specimen ID: [id number] Specimen Collection Start Date: 01/04/2025 ??5:41 PM Specimen Received Date: 01/04/2025 ??5:51 PM Specimen ID: [id number] Specimen Collection Start Date: 01/04/2025 ??5:41 PM Specimen Received Date: 01/04/2025 ??5:51 PM Authorizing ProviderResult TypeResult StatusShahida Patel D.O.LAB BLOOD BANK TEST ORDERABLESFinal ResultPerforming OrganizationAddressCity/State/ZIP Code Phone Number [facility] [address] [place] [address], [facility] [place] [address] * Syphilis IgG w/ Reflex, EIA, S (RST/FLA) (01/04/2025 5:41 PM CAREER DEVELOPER)Component ValueRef RangeTest MethodAnalysis TimePerformed AtPathologist Signature Syphilis IgG w/ Reflex, EIA, HJlkqufcoibhXpcucptwhkj67/07/2025 5:41 PM CSTSDSC Comment: No serologic evidence of infection with T. pallidum (syphilis). ??Repeat testing may be considered in patients with suspected acute or primary syphilis in 2-4 weeks. For additional information on interpretation of the syphilis reverse algorithm and results, see: https://www.[employer].com/ it-mmfiles/Syphilis_Serology_Algorithm.pdf Specimen (Source)Anatomical Location / LateralityCollection Method / Volume Collection TimeReceived TimeBlood (Blood, Venous)01/04/2025 5:41 PM CAREER DEVELOPER 01/05/2025 7:23 AM CAREER DEVELOPER Narrative Authorizing ProviderResult TypeResult StatusShahida Patel D.O.LAB MICROBIOLOGY - BLOOD ORDERABLESFinal ResultPerforming OrganizationAddressCity/State/ZIP Code Phone Number [facility] [address] [place] [address] [facility] [address] [place] [address] * Type and Screen (with Reflex Antibody ID) (01/04/2025 5:41 PM CAREER DEVELOPER)Component ValueRef RangeTest MethodAnalysis TimePerformed AtPathologist SignatureABORhA NegNot wsvviqzxtt32/06/2025 7:15 PM CSTETRMAntibody CbormoEDSUJSSF42/06/2025 7:18 PM CSTETRMComment: REVISED RESULTS See antibody identification test. Type & Screen Jpzgwiprgl76/09/2025 23:5901/04/2025 7:15 PM CSTETRMTesting LocationRochester DEFAULT 01/04/2025 5:51 PM CSTETRMSpecimen (Source)Anatomical Location / Laterality Collection Method / VolumeCollection TimeReceived TimeBlood (Blood, Venous) 01/04/2025 5:41 PM CST01/04/2025 5:51 PM CAREER DEVELOPER Narrative Authorizing ProviderResult TypeResult StatusShahida Patel D.O.LAB BLOOD BANK TEST ORDERABLESEdited Result - FinalPerforming OrganizationAddressCity/State/ZIP CodePhone Number [facility] [address] [place] [address], [facility] [address] [place] [address] * (ABNORMAL) CBC without Differential (01/04/2025 5:41 PM CAREER DEVELOPER)ComponentValueRef RangeTest MethodAnalysis TimePerformed AtPathologist SyxvhdfycWcyhjplwbr08.4 11.6 - 15.0 g/dL01/04/2025 5:59 PM HPPCBVHbnfxvcffy09.635.5 - 44.9 %01/04/2025 5:59 PM CSTDTLErythrocytes5.45(H)3.92 - 5.13 x10(12)/L103/06/2024 5:59 PM CAREER DEVELOPER CFYXTZ16.078.2 - 97.9 fL01/04/2025 5:59 PM CSTDTLRBC Distrib Width13.512.2 - 16.1 %01/04/2025 5:59 PM CSTDTLPlatelet Peoqy010561 - 371 x10(9)/L103/06/2024 5:59 PM RPQOOUYtnyfnmuqa07.7(H)3.4 - 9.6 x10(9)/L103/06/2024 5:59 PM CSTDTL Specimen (Source)Anatomical Location / LateralityCollection Method / Volume Collection TimeReceived TimeBlood (Blood, Venous)01/04/2025 5:41 PM CAREER DEVELOPER 01/04/2025 5:53 PM CAREER DEVELOPER Narrative Authorizing ProviderResult TypeResult StatusShahida Patel D.O.LAB BLOOD ADD-ON Final ResultPerforming OrganizationAddressCity/State/ZIP CodePhone Number [address] [address], [facility] [address] [address] documented in this encounter Visit Diagnoses Diagnosis Care And Lactating- Primary 41 Weeks Gestation (HCC) [Z3A.41] Care And Lactating Thrombosis Deep Vein Without Delivery (HCC) Delivery Vaginal Normal Spontaneous (HCC) Abnormal Ultrasound Thrombosis 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) Type A Blood Rhesus Negative Hypertension Gestational (HCC) documented in this encounter Admitting Diagnoses Diagnosis Spontaneous Onset Of Labor After 37 Completed Weeks Of Gestation But Before 39 Completed Weeks Gestation With Delivery By Planned Section (HCC) documented in this encounter Administered Medications Medication OrderMAR ActionAction DateDoseRateSite acetaminophen tablet 1,000 mg (TylenoL) 1,000 mg, oral, Every 6 hours PRN, mild pain or score 1-3 of 10, moderate pain or score 4-6 of 10, severe pain or score 7-10 of 10, Starting on Wed01/05/25 at 1821, Post-, Starting with ibuprofen, alternate acetaminophen and ibuprofen with 3 hours intervals, if patient states as preference, may start with acetaminophen Given01/07/2025 10:05 AM CST1,000 ejObxvc9901/06/2025 9:00 PM CST1,000 mgGiven 01/06/2025 2:16 PM CST1,000 mg alum-mag hydroxide-simeth 200-200-20 mg/5 mL suspension 30 mL (Maalox) 30 mL, oral, Every 4 hours PRN, indigestion, Per patient preference, Starting on Wed01/05/25 at 1821, Post- benzocaine-menthoL 20-0.5 % external spray (Dermoplast) topical, 4 times daily PRN, irritation, to perineum for irritation or pain, Starting on Wed01/05/25at 1821, Post-, If ordered together, may use in combination with witch bharti-glycerin pad (TUCKS). Given01/05/2025 6:30 PM CAREER DEVELOPER bisacodyL suppository 10 mg (Dulcolax) 10 mg, rectal, 2 times daily PRN, constipation, Starting on Wed01/05/25 at 182, Post-, Verify rectal route is permitted. Ordered sequence of administration if both magnesium hydroxide and bisacodyl are selected: magnesium hydroxide then bisacodyl until bowel movement achieved. calcium carbonate chewable tablet 400 mg of calcium (Tums) 400 mg of calcium, oral, Every 2 hour PRN, indigestion, Per patient preference, Starting on Wed01/05/25 at 182, Post-, Doses listed are in mg of elemental calcium. Take with food. 500 mg calcium carbonate contains 200 mg of elemental calcium. enoxaparin injection 80 mg (Lovenox) 80 mg, subcutaneous, 2 times daily, First dose on Wed01/06/25 at 0900, Post- Given01/07/2025 10:06 AM CST80 mgRight Lower IbpopooVxgoi79/09/2025 12:16 AM CAREER DEVELOPER 80 mgRight Upper Arm (Back)Given01/06/2025 12:13 PM CST80 mgRight Upper Arm (Back) hydrocortisone 2.5 % rectal cream 1 Application (Anusol-HC) 1 Application, rectal, Every 4 hours PRN, hemorrhoids, Starting on Wed01/05/25 at 1821, Post- ibuprofen tablet 600 mg 600 mg, oral, Every 6 hours PRN, mild pain or score 1-3 of 10, moderate pain or score 4-6 of 10, severe pain or score 7-10 of 10, Starting on Wed01/05/25 at 1821, Post-, Starting with ibuprofen, alternate acetaminophen and ibuprofen with 3 hours intervals, if patient states as preference, maystart with acetaminophen Given01/07/2025 1:42 PM DMD312 aiAbtej1901/07/2025 4:32 AM HLS274 mgGiven 01/06/2025 4:36 PM GJC507 mg Lactated Ringer's bolus 500 mL 500 mL, intravenous, at 1,000 mL/hr, Administer over 30 Minutes, As needed, If Category II or III heart rate pattern, Starting on Lillie 01/04/25 at 1704, For 1 dose, L&D Pre-Delivery New Bag01/05/2025 4:35 AM FQV710 fJ2614 mL/hr Lactated Ringer's 125 mL/hr, intravenous, Continuous, Starting on Wed01/05/25 at 0530 New Bag01/05/2025 8:40 AM AQV945 mL/hr125 mL/hr loperamide capsule 4 mg (Imodium A-D) 4 mg, oral, Every 6 hours PRN, diarrhea, Starting on Wed01/05/25 at 1821, Post- , Max 16 mg in24 hours magnesium hydroxide suspension 30 mL (Milk of Magnesia) 30 mL, oral, Every 8 hours PRN, constipation, Starting on Wed01/05/25 at 1821, Post-, Orderedsequence of administration if both magnesium hydroxide and bisacodyl are selected: magnesium hydroxide then bisacodyl until bowel movement achieved. naloxone injection 0.2 mg (Narcan) 0.2 mg, intravenous, As needed, respiratory depression, Starting on Wed01/05/25 at 1821, Post-, For RASS Score -4 or less, respiratory rate of less than 8 breaths/min. Notify provider/service and rapid response team (if available at institution). ondansetron (PF) injection 4 mg (Zofran) 4 mg, intravenous, Every 6 hours PRN, vomiting, nausea, Starting on Wed01/05/25 at 1821, Post-, If patient unable to take oral ondansetron ODT disintegrating tablet 4 mg (Zofran-ODT) 4 mg, oral, Every 6 hours PRN, vomiting, nausea, Starting on Wed01/05/25 at 1821, Post-, First line When splitting ODT at bedside, handle with gloves and a pill splitter to prevent moisture contact. oxytocin 60 kathy-Units/mL in NaCl 500 mL infusion (Pitocin) 15 Units/hr (250 mL/hr), intravenous, Continuous, Starting on Wed01/05/25 at 0800, L&D Post-Delivery, Begin immediately after delivery of fetus (or fetuses). Discontinue oxytocin after 500 ml infused if patient stable. Initiate hemorrhage orders when indicated by provider. 30 Units in 500 mL Protect all pharmacy compounded and premix bags from light, due to inconsistency of source ingredient references. oxytocin 60 kathy-Units/mL in NaCl 500 mL infusion (Pitocin) 2-20 kathy-units/min (2-20 mL/hr), intravenous, Continuous, Starting on Wed01/04/25 at 1730, L&D Pre-Delivery, Begin infusion after 20 minutes of baseline /uterine monitoring or 4 hours after last misoprostol (CYTOTEC) placement or 30 minutes after removal of dinoprostone (CERVIDIL). 30 Units in 500 mL Protect all pharmacy compounded and premix bags from light, due to inconsistency of source ingredient references., Initiate at: 2 kathy-Units/min, Titrate at: 2 kathy-Units/min. every 30min., Goal: Until contractions occur at a frequency of 2-3 min., are strong to palpation, or reach a mximum of 250 [place] units, and/or cervical change(s) occur. Rate/Dose Isnhum0201/05/2025 1:02 PM CST6 kathy-units/min6 mL/hrRate/Dose Change 01/05/2025 11:06 AM CST4 kathy-units/min4 mL/hrNew Bag01/05/2025 10:36 AM CST2 kathy-units/min2 mL/hr oxytocin injection 10 Units (Pitocin) 10 Units, intramuscular, Once as needed, bleeding post-delivery, Starting on Wed01/05/25 at 0731, For 1 dose, L&D Post-Delivery, Initiate hemorrhage orders when indicated by provider. polyethylene glycol powder packet 17 g (Miralax) 17 g, oral, Daily PRN, constipation, Starting on Wed01/05/25 at 1821, Post- , Dissolve in 240 mLs (8 ounces) of water prior to giving. Avoid mixing with starch-based thickened liquids. prochlorperazine injection 5 mg (Compazine) 5 mg, intravenous, Every 6 hours PRN, nausea, vomiting, Starting on Wed01/05/25 at 1821, Post-, If symptoms continue 30 minutes after ondansetron and patient unable to take oral prochlorperazine tablet 5 mg (Compazine) 5 mg, oral, Every 6 hours PRN, nausea, vomiting, Starting on Wed01/05/25 at 1821, Post-, If symptoms continue 30 minutes after ondansetron sennosides tablet 17.2 mg (Senokot) 17.2 mg, oral, Bedtime PRN, constipation, Starting on Wed01/05/25 at 1821, Post- Given01/07/2025 10:41 AM CST17.2 mg simethicone chewable tablet 160 mg 160 mg, oral, Every 6 hours PRN, flatulence, for abdominal gas, Starting on Wed01/05/25 at 1821, Post- sodium chloride 0.9 % injection 10 mL 10 mL, intravenous, As needed, line care, Starting on Wed01/05/25 at 1821, Post- , Peripheral Intravenous Catheter and Rapid Infusion Catheter, prior to blood sampling, post blood transfusion orpost blood sampling sodium chloride 0.9 % injection 3 mL 3 mL, intravenous, As needed, line care, Starting on Wed01/05/25 at 1821, Post- , Prior to andfollowing infusion and between multiple consecutive infusions: sodium chloride 0.9 % injection sodium chloride 0.9 % injection 3 mL 3 mL, intravenous, Every 12 hours scheduled, First dose on Wed01/05/25 at 2100, Post-, Peripheral Intravenous Catheter and Rapid Infusion Catheter, when no infusion to maintain patency witch bharti pad 1 Application (Tucks) 1 Application, topical, 3 times daily PRN, irritation, or pain., Starting on Wed01/05/25 at 1821, Post-, To perineum - If ordered may use in combination with benzocaine-menthol topical spray (DERMOPLAST) documented in this encounter Active and Recently Administered Medications Times are shown in CAREER DEVELOPER.Medication Order//10/2024 enoxaparin injection 80 mg (Lovenox) 80 mg, subcutaneous, 2 times daily, First dose on Wed01/06/25 at 0900, Post- * 1213 (Given - Provider: Vy Siu RChavezNChavez) * 0016 (Given - Provider: Isabel Cruz, R.NChavez, RNRenetta-TINO - Comment: per patient request last given 12 pm) * 1006 (Given - Provider: Isabel Baltazar, R.N.) sodium chloride 0.9 % injection 3 mL 3 mL, intravenous, Every 12 hours scheduled, First dose on Wed01/05/25 at 2100, Post-, Peripheral Intravenous Catheter and Rapid Infusion Catheter, when no infusion to maintain patency * 2034 (Not Given - Provider: Isabel Cruz, R.NChavez, CAMILLE-TINO - Reason: Loss of IV access - Comment: patient requested to remove IV) * 0900 (Due) * 2100 (Not Given - Provider: Isabel Cruz, R.N., RNRenetta-SURESHN - Reason: Other - Comment: no IV) * 09 (Not Given - Provider: Donny BaltazarSKathya, R.N. - Reason: Loss of IV access) Medication Order511/511/10/2024 Lactated Ringer's 125 mL/hr, intravenous, Continuous, Starting on Wed01/05/25 at 0530 * 0840 (New Bag - Provider: Keli Ozuna R.N.) * 1702 (Stopped - Provider: Karina BainsNChavez) oxytocin 60 kathy-Units/mL in NaCl 500 mL infusion (Pitocin) 15 Units/hr (250 mL/hr), intravenous, Continuous, Starting on Wed01/05/25 at 0800, L&D Post-Delivery, Begin immediately after delivery of fetus (or fetuses). Discontinue oxytocin after 500 ml infused if patient stable. Initiate hemorrhage orders when indicated by provider. 30 Units in 500 mL Protect all pharmacy compounded and premix bags from light, due to inconsistency of source ingredient references. * 1620 (Not Given - Provider: Yenny Adhikari R.N. - Reason: Patient/family refused) oxytocin 60 kathy-Units/mL in NaCl 500 mL infusion (Pitocin) (CANCELED) 2-20 kathy-units/min (2-20 mL/hr), intravenous, Continuous, Starting on Lillie 01/04/25 at 1730, L&D Pre-Delivery, Begin infusion after 20 minutes of baseline /uterine monitoring or 4 hours after last misoprostol (CYTOTEC) placement or 30 minutes after removal of dinoprostone (CERVIDIL). 30 Units in 500 mL Protect all pharmacy compounded and premix bags from light, due to inconsistency of source ingredient references., Initiate at: 2 kathy-Units/min, Titrate at: 2 kathy-Units/min. every 30min., Goal: Until contractions occur at a frequency of 2-3 min., are strong to palpation, or reach a mximum of 250 [place] units, and/or cervical change(s) occur. * 1036 (New Bag - Provider: Keli Ozuna R.N.) * 1106 (Rate/Dose Change - Provider: Keli Ozuna R.N.) * 1302 (Rate/Dose Change - Provider: Yumiko Berg R.N.) * 1547 (Stopped - Provider: Yenny Adhikari R.N.) Medication Order511//10/2024 acetaminophen tablet 1,000 mg (TylenoL) 1,000 mg, oral, Every 6 hours PRN, mild pain or score 1-3 of 10, moderate pain or score 4-6 of 10, severe pain or score 7-10 of 10, Starting on Wed01/05/25 at 1821, Post-, Starting with ibuprofen, alternate acetaminophen and ibuprofen with 3 hours intervals, if patient states as preference, may start with acetaminophen * 0047 (Given - Provider: Ubaldo rCuz.S.N., R.N., RNC-MNN) * 0633 (Given - Provider: Ubaldo Cruz.S.N., R.N., RNC-MNN) * 1416 (Given - Provider: Vy Siu R.N.) * 2100 (Given - Provider: Samantha No M.S.N., R.N., RNC-MNN) * 1005 (Given - Provider: Donny BaltazarS.NChavez, R.N.) alum-mag hydroxide-simeth 200-200-20 mg/5 mL suspension 30 mL (Maalox)(Linked Group 1) 30 mL, oral, Every 4 hours PRN, indigestion, Per patient preference, Starting on Wed01/05/25 at 1820, Post- benzocaine-menthoL 20-0.5 % external spray (Dermoplast) topical, 4 times daily PRN, irritation, to perineum for irritation or pain, Starting on Wed01/05/25at 1820, Post-, If ordered together, may use in combination with witch bharti-glycerin pad (TUCKS). * 1830 (Given - Provider: Tiffany Khalil RChavezN.) bisacodyL suppository 10 mg (Dulcolax) 10 mg, rectal, 2 times daily PRN, constipation, Starting on Wed01/05/25 at 1820, Post-, Verify rectal route is permitted. Ordered sequence of administration if both magnesium hydroxide and bisacodyl are selected: magnesium hydroxide then bisacodyl until bowel movement achieved. calcium carbonate chewable tablet 400 mg of calcium (Tums)(Linked Group 1) 400 mg of calcium, oral, Every 2 hour PRN, indigestion, Per patient preference, Starting on Wed01/05/25 at 1820, Post-, Doses listed are in mg of elemental calcium. Take with food. 500 mg calcium carbonate contains 200 mg of elemental calcium. hydrocortisone 2.5 % rectal cream 1 Application (Anusol-HC) 1 Application, rectal, Every 4 hours PRN, hemorrhoids, Starting on Wed01/05/25 at 1820, Post- ibuprofen tablet 600 mg 600 mg, oral, Every 6 hours PRN, mild pain or score 1-3 of 10, moderate pain or score 4-6 of 10, severe pain or score 7-10 of 10, Starting on Wed01/05/25 at 1820, Post-, Starting with ibuprofen, alternate acetaminophen and ibuprofen with 3 hours intervals, if patient states as preference, maystart with acetaminophen * 1830 (Given - Provider: Tiffany Khalil, RChavezN.) * 0414 (Given - Provider: Samantha No M.S.N., R.N., RNC-MNN) * 1056 (Given - Provider: Vy Siu R.N.) * 1636 (Given - Provider: Vy Siu R.N.) * 0432 (Given - Provider: Samantha No M.S.N., R.N., RNC-MNN) * 1342 (Given - Provider: Bell Pereyra M.S.N., R.N.) Lactated Ringer's bolus 500 mL (COMPLETED) 500 mL, intravenous, at 1,000 mL/hr, Administer over 30 Minutes, As needed, If Category II or III heart rate pattern, Starting on Lillie 01/04/25 at 1704, For 1 dose, L&D Pre-Delivery * 0435 (New Bag - Provider: Matthias Escobar RKathya) loperamide capsule 4 mg (Imodium A-D) 4 mg, oral, Every 6 hours PRN, diarrhea, Starting on Wed01/05/25 at 1821, Post- , Max 16 mg in24 hours magnesium hydroxide suspension 30 mL (Milk of Magnesia) 30 mL, oral, Every 8 hours PRN, constipation, Starting on Wed01/05/25 at 1821, Post-, Orderedsequence of administration if both magnesium hydroxide and bisacodyl are selected: magnesium hydroxide then bisacodyl until bowel movement achieved. naloxone injection 0.2 mg (Narcan) 0.2 mg, intravenous, As needed, respiratory depression, Starting on Wed01/05/25 at 1821, Post-, For RASS Score -4 or less, respiratory rate of less than 8 breaths/min. Notify provider/service and rapid response team (if available at institution). ondansetron (PF) injection 4 mg (Zofran)(Linked Group 2) 4 mg, intravenous, Every 6 hours PRN, vomiting, nausea, Starting on Wed01/05/25 at 1821, Post-, If patient unable to take oral ondansetron ODT disintegrating tablet 4 mg (Zofran-ODT)(Linked Group 2) 4 mg, oral, Every 6 hours PRN, vomiting, nausea, Starting on Wed01/05/25 at 182, Post-, First line When splitting ODT at bedside, handle with gloves and a pill splitter to prevent moisture contact. oxytocin injection 10 Units (Pitocin) 10 Units, intramuscular, Once as needed, bleeding post-delivery, Starting on Wed01/05/25 at 0731, For 1 dose, L&D Post-Delivery, Initiate hemorrhage orders when indicated by provider. polyethylene glycol powder packet 17 g (Miralax) 17 g, oral, Daily PRN, constipation, Starting on Wed01/05/25 at 1820, Post- , Dissolve in 240 mLs (8 ounces) of water prior to giving. Avoid mixing with starch-based thickened liquids. prochlorperazine injection 5 mg (Compazine)(Linked Group 3) 5 mg, intravenous, Every 6 hours PRN, nausea, vomiting, Starting on Wed01/05/25 at 182, Post-, If symptoms continue 30 minutes after ondansetron and patient unable to take oral prochlorperazine tablet 5 mg (Compazine)(Linked Group 3) 5 mg, oral, Every 6 hours PRN, nausea, vomiting, Starting on Wed01/05/25 at 1821, Post-, If symptoms continue 30 minutes after ondansetron sennosides tablet 17.2 mg (Senokot) 17.2 mg, oral, Bedtime PRN, constipation, Starting on Wed01/05/25 at 182, Post- * 1041 (Given - Provider: Donny BaltazarSKathya, R.N.) simethicone chewable tablet 160 mg 160 mg, oral, Every 6 hours PRN, flatulence, for abdominal gas, Starting on Wed01/05/25 at 182, Post- sodium chloride 0.9 % injection 10 mL 10 mL, intravenous, As needed, line care, Starting on Wed01/05/25 at 182, Post- , Peripheral Intravenous Catheter and Rapid Infusion Catheter, prior to blood sampling, post blood transfusion orpost blood sampling sodium chloride 0.9 % injection 3 mL 3 mL, intravenous, As needed, line care, Starting on Wed01/05/25 at 1821, Post- , Prior to andfollowing infusion and between multiple consecutive infusions: sodium chloride 0.9 % injection witch bharti pad 1 Application (Tucks) 1 Application, topical, 3 times daily PRN, irritation, or pain., Starting on Wed01/05/25 at 182, Post-, To perineum - If ordered may use in combination with benzocaine-menthol topical spray (DERMOPLAST) Order Group 1: alum-mag hydroxide-simeth 200-200-20 mg/5 mL suspension 30 mL (Maalox)Jump to med 30 mL, oral, Every 4 hours PRN, indigestion, Per patient preference, Starting on Wed01/05/25 at 1821, Post- Or calcium carbonate chewable tablet 400 mg of calcium (Tums)Jump to med 400 mg of calcium, oral, Every 2 hour PRN, indigestion, Per patient preference, Starting on Wed01/05/25 at 182, Post-, Doses listed are in mg of elemental calcium. Take with food. 500 mg calcium carbonate contains 200 mg of elemental calcium. Group 2: ondansetron ODT disintegrating tablet 4 mg (Zofran-ODT)Jump to med 4 mg, oral, Every 6 hours PRN, vomiting, nausea, Starting on Wed01/05/25 at 1821, Post-, First line When splitting ODT at bedside, handle with gloves and a pill splitter to prevent moisture contact. Or ondansetron (PF) injection 4 mg (Zofran)Jump to med 4 mg, intravenous, Every 6 hours PRN, vomiting, nausea, Starting on Wed01/05/25 at 182, Post-, If patient unable to take oral Group 3: prochlorperazine tablet 5 mg (Compazine)Jump to med 5 mg, oral, Every 6 hours PRN, nausea, vomiting, Starting on Wed01/05/25 at 1821, Post-, If symptoms continue 30 minutes after ondansetron Or prochlorperazine injection 5 mg (Compazine)Jump to med 5 mg, intravenous, Every 6 hours PRN, nausea, vomiting, Starting on Wed01/05/25 at 1821, Post-, If symptoms continue 30 minutes after ondansetron and patient unable to take oral documented in this encounter Additional Health Concerns AssessmentNoted TimePHQ-9 Depression Total Score: 8:59 AM CDT documented as of this encounter
--- OUTSIDE RECORDS SUMMARY | 2025-01-04 23:59 | XMS_ITS | Encounter Summary ---
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 [address] [place] [phone] Anesthesia Record Procedure NameResponsible AnesthesiologistAnesthesia Start TimeAnesthesia Stop TimeLABOR SAFETY SCREEN Events No events on file. * Meds No medications on file. * Agents No agents on file. * Blood No blood administrations on file. Lines, Drains, and Airways No LDAs on file. documented in this encounter Social History Tobacco UseTypesPacks/DayYears UsedDateSmoking Tobacco: AbfxmqGmhnrdvzcl0Rgnc: 09/29/2022Smokeless Tobacco: NeverAlcohol UseStandard Drinks/WeekCommentsNot Currently0 (1 standard drink = 0.6 oz pure alcohol)Humiliation, Afraid, Rape, and Kick questionnaireAnswerDate RecordedWithin the last year, have you been afraid of your partner or ex-partner?Patient unable to bqehms7812/04/2024Within the last year, have you been humiliated or emotionally abused in other ways by your partner or ex-partner?Patient unable to ematvl5312/04/2024Within the last year, have you been kicked, hit, slapped, or otherwise physically hurt by your partner or ex-partner?Patient unable to jsptuc8812/04/2024Within the last year, have you been raped or forced to have any kind of sexual activity by your part ner or ex-partner?Patient unable to cnkmeg2512/04/2024Hunger Vital SignAnswerDate RecordedWithin the past 12 months, [...] RecordedIn the past 12 months has the [employer], gas, oil, or water [employer] threatened to shut off services in your home?No12/04/2024Postpartum DepressionAnswerDate RecordedPHQ-9 Total Score (max 27)Housing StabilityAnswerDate RecordedWhat is your living situation today?I have a steady place to live12/04/2024CommentsYesSex and Gender InformationValueDate RecordedSex Assigned at XxohzFzdzqw56/17/2025 4:09 PM CSTLegal VyhQnliqx41/17/2025 4:07 PM CSTGender GbhuwaazVmcoac77/17/2025 4:09 PM CSTSexual OqloxrwmnvuVdiunktr96/17/2025 4:09 PM CSTdocumented as of this encounter OR Notes * Anesthesia Preprocedure Evaluation - Hoda Rubio M.B.B.S. - 01/04/2025 4:27 PM CST Preprocedure Anesthesia & H&P Assessment Procedure Summary Date: 01/04/25 Procedure: LABOR SAFETY SCREEN Pertinent components of the patient's history including current problem list, medical history, surgical history, family history, social history, medications and allergies were reviewed. Present illness and pre-op diagnosis were confirmed. The planned surgery / procedure was verified with the patient / legal guardian. The patient's general health condition remains unchanged RELEVANT COMORBID CONDITIONS RENAL/REPRO (+) Velamentous Insertion Of Umbilical Cord Unspecified Trimester (HCC) OBJECTIVE PHYSICAL EXAMINATION Airway (HEENT) Mallampati: I TM Distance: >3 FB Neck ROM: Full Mouth Opening: >3 cm Upper Lip Bite Test Class: I Cardiovascular Rhythm: Regular Rate: Normal Cardiovascular Assessment: cardiovascular normal Functional Capacity: >4 METS Pulmonary Pulmonary Assessment: Clear General / Constitutional Constitutional Assessment: Normal General State of Health:: healthy appearing and calm Neurological Neurologic Assessment: alert and alert and oriented x 3 Dental Dental Assessment: dentition intact ASSESSMENT / PLAN ANESTHESIA PLAN ASA: 3 Anesthesia Plan: regional Patient seen and allergies reviewed, anesthesia plan and risks discussed directly with patient /legal guardian or through an window glazier helper. Risks/Benefits/Alternatives of Blood transfusion discussed with patient / legal guardian, includingan opportunity to ask questions and/or decline some or all transfusion therapies. The patient / legal guardian consented to the use of all blood products, as deemed medically necessary Approval to Proceed: approved for anesthesia Ms. Ashley Almanza ( ) is a 24 y.o. female, coming in from [facility]. Accompanied by her and substation inspector during our visit. at 41w4d gestation that was admitted to the L&D floor for labor . PMHx: VTE on Therapeutic Lovenox, velamentous cord insertion OBHx: Current : VTE at 33 weeks. Blood type A Neg. GBS negative. Anesthetic History: No prior anesthetic or neuraxial. Pre-operative review: -VSS on RA. Current symptoms: N/V, Contractions -Pertinent medications last taken: Lovenox 80mg BID (Last 11/ 8PM) -Pertinent labs: A Neg Pending T&S. Pending labs. -Current LDA: None Labor Plan: - Anticipate - Ashley is planning for an un-medicated labor and delivery; Support un-medicated L&D with nonpharmacologic analgesia. - Regarding VTE Anticoagulation, appropriate Lovenox hold time with >24 hours since last dose. At this time, Ashley deferred discussion regarding neuraxial anesthesia options, can revisit if clinically indicated. Cosigned by Garima Matias M.D. at 01/04/2025 5:41 PM [facility] KAY STITCHER KAY STITCHER KAY STITCHER documented in this encounter Plan of Treatment DateTypeDepartmentCare Team (Latest Contact Info)Trrjubyhevy15/24/2025 2:30 PM CSTComprehensive Visit Department of Physical Medicine and Rehabilitation in [place], [place] [address] [place] [phone] Milagro Hayes, CNUbaldo [address] [place] [phone] Jelena Yi O.T., MOT [address] [place] [phone] documented as of this encounter Visit Diagnoses Not on filedocumented in this encounter Additional Health Concerns AssessmentNoted TimePHQ-9 Depression Total Score: 8:59 AM CDT documented as of this encounter
--- OUTSIDE RECORDS SUMMARY | 2025-01-05 04:18 | XMS_ITS | Encounter Summary ---
Author Organization [facility] Address [address] [place] [address] Care Team Providers Care Hvac Mechanic Name Role Phone Unavailable Primary Care Provider Unavailabl e Reason for Visit * Auth/Cert (Routine)SpecialtyDiagnoses / ProceduresReferred By ContactReferred To Contact Diagnoses Spontaneous Onset Of Labor After 37 Completed Weeks Of Gestation But Before 39 Completed Weeks Gestation With Delivery By Planned Section (HCC) Procedures LD Referral IDStatusReasonStart DateExpiration DateVisits RequestedVisits [id number] Encounter Details DateTypeDepartmentCare Team (Latest Contact Info)Fqosaldrnte72/07/2025 4:18 AM CSTAnesthesia Event [facility] [place] [address] [place] [address] Boni Paz M.D. [address] [place] [address] Shaniqua Cutler, WELDING MANAGER, RESISTANCE WELDING MACHINE OPERATOR, DNAP [address] [place] [phone] Anesthesia Record Procedure NameResponsible AnesthesiologistAnesthesia Start TimeAnesthesia Stop TimeLABOR ANALGESIABoni Paz M.D.01/05/25 63432403/07/24 1545DateTimeEvent Okdoosz24/07/94050686Zb StartMachine/Equipment Checked Infection Precautions Followed Procedure/Site Verified NPO Status Verified Supine Standard ASA Monitors Gsecaiw4276Wrptecrnkp Time Crs9176Rtkhm Twddt5957Rjooqnsa Nxskug4608 Block Cxd5638Beyer Hfjt5810Ijres NoteN/v d04620Dc Yjn2403Zmhygfcw Catheter Removed/Tip Intact* NameTotallidocaine-EPINEPHrine PF 1.5%-1:200,000 injection3 mLfentaNYL 2 mcg/mL-BUPivacaine 0.0625% epidural (mL/hr)167.75 mLfentaNYL 2 mcg/mL-BUPivacaine 0.0625% epidural (mL)5 mL * Agents No agents on file. * Blood No blood administrations on file. TypeDetailsPlacementRemovalPeripheral IVPlacement Date: 01/05/25; Placement Time: 417; Catheter Size: 20 G; Orientation: Left; Location: Hand; Removal Date: 01/05/25; Removal Time: 1846; Removal Reason: Per patient/family request 01/05/25417 by Shaniqua Cutler APRN, CRNA, DNAP103/07/241846 by Tiffany Khalil, RChavezNChavezEpidural CatheterPlacement Date: 01/05/25; Placement Time: 417 (created via procedure documentation); Location: Lumbar; Removal Date: 01/05/25; Removal Time: 417 by Hoda Rubio M.B.BChavezS.01/05/251743 by Joao Rodgers APRN, CRNA, DNAPIndwelling Urinary CatheterPlacement Date: 01/05/25; Placement Time: 618; Inserted by: Negin; Size: 16 Fr.; Balloon Size: 10 mL; Urine Returned: Yes; Removal Date: 01/05/25; Removal Time: 143; Removal Reason: Criteria for drain removal met01/05/25618 by Negin Kiser M103/07/241436 by Keli Ozuna, RChavezNChavezdocumented in this encounter Social History Tobacco UseTypesPacks/DayYears UsedDateSmoking Tobacco: FbukccKtxulbgwko1Xsgi: 09/29/2022Smokeless Tobacco: NeverAlcohol UseStandard Drinks/WeekCommentsNot Currently0 (1 standard drink = 0.6 oz pure alcohol)Humiliation, Afraid, Rape, and Kick questionnaireAnswerDate RecordedWithin the last year, have you been afraid of your partner or ex-partner?Patient unable to ddclvk7912/04/2024Within the last year, have you been humiliated or emotionally abused in other ways by your partner or ex-partner?Patient unable to ibfqtb0512/04/2024Within the last year, have you been kicked, hit, slapped, or otherwise physically hurt by your partner or ex-partner?Patient unable to iehcmc8512/04/2024Within the last year, have you been raped or forced to have any kind of sexual activity by your part ner or ex-partner?Patient unable to hxhghz7512/04/2024Hunger Vital SignAnswerDate RecordedWithin the past 12 months, [...] RecordedIn the past 12 months has the [employer], [employer], oil, or water [place] threatened to shut off services in your home?No12/04/2024Postpartum DepressionAnswerDate RecordedPHQ-9 Total Score (max 27)Housing StabilityAnswerDate RecordedWhat is your living situation today?I have a steady place to live12/04/2024CommentsNoSex and Gender InformationValueDate RecordedSex Assigned at YtxwpWeeuwj10/17/2025 4:09 PM CSTLegal JdwEwharv58/17/2025 4:07 PM CSTGender OacokolsNxmnjc43/17/2025 4:09 PM CSTSexual DdbgsksxfdySsvztddz39/17/2025 4:09 PM CSTdocumented as of this encounter OR Notes * Anesthesia Postprocedure Evaluation - Joao Rodgers APRN, CRNA, DNAP - 01/05/2025 5:44 PM CST Patient: Ashley Almanza Procedure Summary Date: 01/05/25 Room / Location: Anesthesia Start: 8 Anesthesia Stop: 154 Procedure: LABOR ANALGESIA Diagnosis: Scheduled Providers: Responsible Provider: Boni Paz M.D. Anesthesia Type: regional ASA Status: 2 Anesthesia Type: regional Last vitals Vitals Value Taken Time BP 139/83 01/05/25 16:47 Temp Pulse Resp SpO2 Please reference Vitals flowsheet for most recent vital signs. Anesthesia Post Evaluation Patient Disposition: general care unit Cardiovascular status: hemodynamics (HR & BP) acceptable Respiratory status: patent airway with spontaneous effort Temperature: normothermic Oxygen requirements: room air Level of consciousness: awake Pain score: pain adequately controlled and/or at baseline Post Op nausea/vomiting: none Hydration status: euvolemic Notable Events No notable events documented. ING SUPERVISOR * Anesthesia Procedure Notes - Hoda Rubio M.B.B.SChavez - 01/05/2025 4:33 AM CSTAssociated Order(s): Regional Block Regional Block Date/Time: 01/05/2025 4:18 AM Performed by: Hoda Rubio M.BChavezB.SChavez Authorized by: Boni Paz M.D. Location: labor room PROCEDURE DETAILS: Block Indication: OB block Block Type - Neuraxial: lumbar epidural Positioning: sitting Approach: midline Level inserted: L3-4 Injection technique: catheter Epidural space identification technique: loss of resistance - fluid Loss of resistance depth: 6 Needle type: tuohy Gauge: 18G Catheter taped (cm at skin): 11 CSF: no Test dose: yes- negative test dose Pain with needle advancement or injection of local anesthetic: no Injected Medications: Injection(s), anesthetic agent(s) and/or steroid; See MAR Comments: Comments: I discussed the risks, benefits, and alternatives of an epidural with Ashley Almanza whichincludes bleeding, infection, nerve injury or nerve damage, paresthesia or pain on injection, fall out of epidural, failure of the regional technique, or emergency resulting in conversion to general anesthesia. Patient verbalized understanding and elected to proceed with epidural for primary regional anesthetic for labor analgesia.. Mom and Baby appropriately monitored throughout duration of procedure. Fully Conversational and alert during procedure. Tuohy needle advanced without pain. (+) Normal Saline OTONIEL. Dural puncture epidural DPE technique with (+) CSF on Intentional Dural Puncture. Burleson OTONIEL at 6 cm, catheter threaded without difficulty and taped at 11 cm at the skin. Negative test dose with 3 ml of lidocaine and 1:200,000 epinephrine via epidural. tolerated the procedure well and without apparent complications. In setting of therapeutic Lovenox for hx of DVT; therapeutic Lovenox Contraindicated while epiduralcatheter in place, can restart at least 4 hours after removal. UNIVERSAL PROTOCOL All relevant documentation and testing were reviewed and available. All required blood products, implants, devices and or special equipment were made available as applicable. Pre-procedure verification was conducted and the correct site was marked if required. A fire risk and smoke assessment were done as applicable. The procedural time-out to verify correct patient, correct side/site, and procedure was conducted prior to performing the procedure and confirmed in a procedural pause. PRE-PROCEDURE DETAILS: Appropriate hand hygiene, gown, cap, mask, protective eyewear, sterile gloves, skin preparation, sterile drape, and strict aseptic technique were utilized as applicable for the procedure.: yes Skin prep: chlorhexidine / alcohol SEDATION / ANESTHESIA Anesthesia method: local infiltration POST-PROCEDURE DETAILS: Procedure completed successfully: successful procedure Notable Events: none ATTESTATION STATEMENT A resident or fellow participated in the procedure, and the art sales consultant was present for the entire procedure. ING SUPERVISOR ING SUPERVISOR ING SUPERVISOR * Anesthesia Preprocedure Evaluation - Hoda Rubio M.B.BChavezS. - 01/05/2025 4:32 AM CST Preprocedure Anesthesia & H&P Assessment Procedure Summary Anesthesia Start Date/Time: 01/05/25 0418 Procedure: LABOR ANALGESIA Pertinent components of the patient's history including [...] (HCC) OBJECTIVE PHYSICAL EXAMINATION Airway (HEENT) Mallampati: II TM Distance: >3 FB Neck ROM: Full [...] intact ASSESSMENT / PLAN ANESTHESIA PLAN ASA: 2 Anesthesia Plan: regional Patient seen and allergies reviewed, anesthesia plan and risks discussed directly with patient /legal guardian or through an finance effectiveness manager. Risks/Benefits/Alternatives of Blood transfusion discussed with patient / legal guardian, includingan opportunity to ask questions and/or decline some or all transfusion therapies. The patient / legal guardian consented to the use of all blood products, as deemed medically necessary Approval to Proceed: approved for anesthesia Ms. Ashley Almanza ( ) is a 24 y.o. female, coming in from [facility]. Accompanied by her and rn dermatology during our visit. at 41w4d gestation that was admitted to the L&D floor for labor . PMHx: VTE on Therapeutic Lovenox, velamentous cord insertion OBHx: Current : VTE at 33 weeks. Blood type A Neg. GBS negative. Anesthetic History: No prior anesthetic or neuraxial. Pre-operative review: -VSS on RA. Current symptoms: N/V, Contractions -Pertinent medications last taken: Lovenox 80mg BID (Last 01/02 8PM) -Pertinent labs: A Neg Pending T&S. Pending labs. -Current LDA: None Labor Plan: - Anticipate - Con sented for Neuraxial anesthesia; will perform Dural puncture epidural. - Regarding VTE Anticoagulation, appropriate Lovenox hold time with >24 hours since last dose. Cosigned by Boni Paz M.D. at 01/05/2025 4:37 AM SANDING SUPERVISOR ING SUPERVISOR ING SUPERVISOR documented in this encounter Plan of Treatment DateTypeDepartmentCare Team (Latest Contact Info)Wizqvozmyog94/24/2025 2:30 PM CSTComprehensive Visit Department of Physical Medicine and Rehabilitation in [place], [place] [address] [place] [phone] Milagro Hayes, CN [address] [place] [phone] Jelena Yi O.T., MOT [address] [place] [phone] documented as of this encounter Procedures Procedure NamePriorityDate/TimeAssociated DiagnosisCommentsANESTHESIA REGIONAL BGXEVZgxsoyq15/07/2025 4:18 AM SANDING SUPERVISOR documented in this encounter Results * LDA ANE EPIDURAL CATHETER (01/05/2025 4:18 AM SANDING SUPERVISOR) Narrative Hoda Rubio M.B.B.S. - 01/05/2025 4:18 AM SANDING SUPERVISOR Hoda Rubio M.B.B.S. 01/05/2025 4:47 AM Regional Block Date/Time: 01/05/2025 4:18 AM Performed by: Hoda Rubio M.B.BChavezSChavez Authorized by: Boni Paz M.D. ?? Location: labor room PROCEDURE DETAILS: Block Indication: OB block ?? Block Type - Neuraxial: lumbar epidural Positioning: sitting ?? Approach: midline Level inserted: L3-4 Injection technique: catheter Epidural space identification technique: loss of resistance - fluid Loss of resistance depth: 6 Needle type: tuohy Gauge: 18G Catheter taped (cm at skin): 11 CSF: no ?? Test dose: yes- negative test dose ??Pain with needle advancement or injection of local anesthetic: no ?? Injected Medications: Injection(s), anesthetic agent(s) and/or steroid; See MAR Comments: Comments: I discussed the risks, benefits, and alternatives of an epidural with Ashley Almanza which includes bleeding, infection, nerve injury or nerve damage, paresthesia or pain on injection, fall out of epidural, failure of the regional technique, or emergency resulting in conversion to general anesthesia. Patient verbalized understanding and elected to proceed with epidural for primary regional anesthetic for labor analgesia.. Mom and Baby appropriately monitored throughout duration of procedure. Fully Conversational and alert during procedure. Tuohy needle advanced without pain. (+) Normal Saline OTONIEL. Dural puncture epidural DPE technique with (+) CSF on Intentional Dural Puncture. Burleson OTONIEL at 6 cm, catheter threaded without difficulty and taped at ??11 cm at the skin. Negative test dose with 3 ml of lidocaine and 1:200,000 epinephrine via epidural. ??tolerated the procedure well and without apparent complications. In setting of therapeutic Lovenox for hx of DVT; therapeutic Lovenox Contraindicated while epidural catheter in place, can restart at least 4 hours after removal. UNIVERSAL PROTOCOL All relevant documentation and testing were reviewed and available. All required blood products, implants, devices and or special equipment were made available as applicable. Pre-procedure verification was conducted and the correct site was marked if required. A fire risk and smoke assessment were done as applicable. The procedural time-out to verify correct patient, correct side/site, and procedure was conducted prior to performing the procedure and confirmed in a procedural pause. PRE-PROCEDURE DETAILS: ?? Appropriate hand hygiene, gown, cap, mask, protective eyewear, sterile gloves, skin preparation, sterile drape, and strict aseptic technique were utilized as applicable for the procedure.: yes ?? Skin prep: chlorhexidine / alcohol SEDATION / ANESTHESIA Anesthesia method: local infiltration POST-PROCEDURE DETAILS: Procedure completed successfully: successful procedure Notable Events: none ATTESTATION STATEMENT A resident or fellow participated in the procedure, and the art sales consultant was present for the entire procedure. Authorizing ProviderResult TypeResult StatusAamiadrian Paz M.D.PROCEDURE/MINOR SURGICAL ORDERABLESEdited Result - Final documented in this encounter Visit Diagnoses Not on filedocumented in this encounter Administered Medications Medication OrderMAR ActionAction DateDoseRateSite fentaNYL (PF) 2 mcg/mL-BUPivacaine 0.0625 % epidural epidural, Continuous Infusion: Per Instructions PRN, Starting on Wed01/05/25 at 0434, Anesthesia Intra-op New Bag01/05/2025 4:34 AM CST15 mL/hr15 mL/hr fentaNYL (PF) 2 mcg/mL-BUPivacaine 0.0625 % epidural epidural, As needed, Starting on Wed01/05/25 at 0434, Anesthesia Intra-op Given01/05/2025 4:34 AM CST5 mL lidocaine-EPINEPHrine (PF) 1.5 %-1:200,000 injection (Xylocaine w/epi) epidural, As needed, Starting on Wed01/05/25 at 0423, Anesthesia Intra-op Given01/05/2025 4:23 AM CST3 mLdocumented in this encounter Additional Health Concerns AssessmentNoted TimePHQ-9 Depression Total Score: 8:59 AM CDT documented as of this encounter
--- OUTSIDE RECORDS SUMMARY | 2025-01-10 10:00 | XMS_ITS | Encounter Summary ---
Author Organization [facility] Address [address] [place] [address] Care Team Providers Care Station Gateman Name Role Phone Unavailable Primary Care Provider Unavailabl e Reason for Visit * Outpatient (Routine) - ClosedSpecialtyDiagnoses / ProceduresReferred By ContactReferred To ContactObstetrics and Gynecology Isidra Prasad M.D. [address] [place] [address] Phone: tel: fax: [facility] Referral IDStatusReasonStart DateExpiration DateVisits RequestedVisits [id number]/ Encounter Details DateTypeDepartmentCare Team (Latest Contact Info)Wvcepqoeqlq19/12/2025 10:00 AM CSTTelemedicine Department of Obstetrics and Gynecology in [place], [place] [address] [place] [phone] Isidra Prasad M.D. [address] [place] [phone] Marita Silverio R.N. [address] [place] [phone] Care And Lactating (Primary Dx) Social History Tobacco UseTypesPacks/DayYears UsedDateSmoking Tobacco: XgzhbvWuvxewaoqk0Kuzc: 09/29/2022Smokeless Tobacco: NeverAlcohol UseStandard Drinks/WeekCommentsNot Currently0 (1 standard drink = 0.6 oz pure alcohol)Humiliation, Afraid, Rape, and Kick questionnaireAnswerDate RecordedWithin the last year, have you been afraid of your partner or ex-partner?Patient unable to qykcwb9012/04/2024Within the last year, have you been humiliated or emotionally abused in other ways by your partner or ex-partner?Patient unable to elmjid9612/04/2024Within the last year, have you been kicked, hit, slapped, or otherwise physically hurt by your partner or ex-partner?Patient unable to jtioux0612/04/2024Within the last year, have you been raped or forced to have any kind of sexual activity by your part ner or ex-partner?Patient unable to agtvtb5212/04/2024Hunger Vital SignAnswerDate RecordedWithin the past 12 months, [...] RecordedIn the past 12 months has the [employer], gas, oil, or water [place] threatened to shut off services in your home?No12/04/2024Postpartum DepressionAnswerDate RecordedPHQ-9 Total Score (max 27)Housing StabilityAnswerDate RecordedWhat is your living situation today?I have a steady place to live12/04/2024CommentsNoSex and Gender InformationValueDate RecordedSex Assigned at NtoygZuiaei77/17/2025 4:09 PM CSTLegal CclLnwiby54/17/2025 4:07 PM CSTGender ZdnhnnutGdytox49/17/2025 4:09 PM CSTSexual IzpmrqczgzqAdhnxrpb28/17/2025 4:09 PM CSTdocumented as of this encounter Last Filed Vital Signs Vital SignReadingTime TakenCommentsBlood Pklixujq165/7101/10/2025 8:29 AM RESIDENT ATHLETIC TRAINER home blood pressure cuff that was validatedPulse--Temperature--Respiratory Rate- -Oxygen Saturation--Inhaled Oxygen Concentration--Weight--Height--Body Mass Index--documented in this encounter Progress Notes * Marita Silverio R.N. - 01/10/2025 10:00 AM CST ATU Nurse Visit SUBJECTIVE CHIEF COMPLAINT / REASON FOR VISIT Ashley Almanza is a 24 y.o. delivered on 01/05/25 via vaginal delivery Patient was seen today for a blood pressure check for a diagnosis of gestational hypertension. Patient is not on blood pressure medications. Appointment today was conducted by RN via phonecall. Blood pressure today is <150 systolic or <100 diastolic. Nurse has reviewed signs and symptoms of pre-eclampsia.. Blood pressure was within normal range (<140/90). Patient was advised to stop taking blood pressures and return for routine 6 week visit. (Placed order for 6 week appointment if not already done).. OBJECTIVE VITAL SIGNS Blood Pressure: 132/71 ASSESSMENT / PLAN The testing findings were discussed with patient Patient denies: fever, severe headache, visual disturbances, right upper quadrant pain, marked shortness of breath, dizziness, or hypotension. Provider not contacted. Testing within parameters. Reviewed with patient: Signs & symptoms of pre-eclampsia: blood pressure of 140/90 or greater, persistent headache, chest pain, abdominal pain, visual changes, shortness of breath, dizziness, hypotension, or weakness. ATU note forwarded to primary OB provider KEVIN Hayes R.N. DENT ATHLETIC TRAINER documented in this encounter Plan of Treatment DateTypeDepartmentCare Team (Latest Contact Info)Wdssfcvjwrd69/24/2025 2:30 PM CSTComprehensive Visit Department of Physical Medicine and Rehabilitation in [place], [place] [address] [place] [phone] Milagro Hayes, CNM [address] [place] [phone] Jelena Yi O.T., MOT [address] [place] [phone] documented as of this encounter Visit Diagnoses Diagnosis Care And Lactating- Primary documented in this encounter Additional Health Concerns AssessmentNoted TimePHQ-9 Depression Total Score: 8:59 AM CDT documented as of this encounter
--- OUTSIDE RECORDS SUMMARY | 2025-01-16 13:00 | XMS_ITS | Encounter Summary ---
Author Organization [facility] Address [address] [place] [id number] Care Team Providers Care Fruit Worker Name Role Phone Unavailable Primary Care Provider Unavailabl e Reason for Referral * Outpatient (Routine) - ClosedSpecialtyDiagnoses / ProceduresReferred By ContactReferred To ContactObstetrics and Gynecology Diagnoses Care And Lactating Milagro Hayes CNM [address] [place] [address] Phone: tel: fax: [facility] Referral IDStatusReasonStart DateExpiration DateVisits RequestedVisits [id number]/18/20255/ ICATION SUPPORT INTERN Reason for Visit * Outpatient (Routine) - ClosedSpecialtyDiagnoses / ProceduresReferred By ContactReferred To ContactObstetrics and Gynecology Milagro Hayes CNM [address] [place] [phone] Phone: tel: fax: Anupama Padilla M.D. [address] [place] [phone] Phone: tel: fax: Referral IDStatusReasonStart DateExpiration DateVisits RequestedVisits [id number]/29/20254/ Encounter Details DateTypeDepartmentCare Team (Latest Contact Info)Vjodzrzghco50/18/2025 1:00 PM CSTTelemedicine Department of Obstetrics and Gynecology in [place], [place] [address] [place] [phone] Milagro Hayes, [facility] [address] [place] [phone] Care And Lactating (Primary Dx); Exam (HCC) Social History Tobacco UseTypesPacks/DayYears UsedDateSmoking Tobacco: DhvzfbZjrlxozqzv3Cpuo: 09/29/2022Smokeless Tobacco: NeverAlcohol UseStandard Drinks/WeekCommentsNot Currently0 (1 standard drink = 0.6 oz pure alcohol)Humiliation, Afraid, Rape, and Kick questionnaireAnswerDate RecordedWithin the last year, have you been afraid of your partner or ex-partner?Patient unable to sqsctb4612/04/2024Within the last year, have you been humiliated or emotionally abused in other ways by your partner or ex-partner?Patient unable to dnomas0012/04/2024Within the last year, have you been kicked, hit, slapped, or otherwise physically hurt by your partner or ex-partner?Patient unable to pjqdqx1812/04/2024Within the last year, have you been raped or forced to have any kind of sexual activity by your part ner or ex-partner?Patient unable to uqwigm2912/04/2024Hunger Vital SignAnswerDate RecordedWithin the past 12 months, [...] RecordedIn the past 12 months has the [employer]tras, gas, oil, or water [employer] threatened to shut off services in your home?No12/04/2024Postpartum DepressionAnswerDate RecordedPHQ-9 Total Score (max 27)Housing StabilityAnswerDate RecordedWhat is your living situation today?I have a steady place to live12/04/2024CommentsNoSex and Gender InformationValueDate RecordedSex Assigned at TxjqmIalofi96/17/2025 4:09 PM CSTLegal UacThxbtf06/17/2025 4:07 PM CSTGender WwssscrwZdvpbs10/17/2025 4:09 PM CSTSexual TpjltfotgxjLycmjktu19/17/2025 4:09 PM CSTdocumented as of this encounter Progress Notes * Milagro Hayes CNM - 01/16/2025 1:00 PM CST Images from the original note were not included. Consult conducted via real-time audio/video technology by Milagro Hayes CNM in [facility] to the patient in Patient's Home SUBJECTIVE CHIEF COMPLAINT / REASON FOR VISIT Ashley Almanza, , is 11 days status post Vaginal, Spontaneous on 01/05/25. QBL 250 mL; first degree and periurethral lacerations. Antepartum course was complicated by DVT at 33 weeks, on Lovenox, Rh negative blood type and velamentous cord insertion. course has been complicated by gestational hypertension. Continues treatment for DVT with Lovenox 80 mg BID. Patient is breast & bottle-feeding breast milk. Baby's name is: Adryanebe 7#14 oz Patient's bleeding has not stopped and light. Patient's bladder/bowel function is as expected, except for constipation (colace) hemorrhoids (cream) . She reports home BP have continued to be normal. Regarding mood, denies any concerns today. Has good support of spouse and family at home. Sleep is variable at night, baby has been cluster feeding. She is able to nap during the day. HISTORY OF PRESENT CONDITION OB History Para Term AB Living 1 1 1 1 SAB IAB Ectopic Molar Multiple Live Births 0 1 # Outcome Date GA Lbr Joshua/2nd Weight Sex Type Anes PTL Lv 1 Term 01/05/25 41w5d 15:43 / 01:35 3.57 kg F Vag-Spont EPI RUKHSANA OBJECTIVE VITAL SIGNS There were no vitals filed for this visit. MEDICATIONS I have discontinued Ashley Almanza's sennosides, witch Roma, simethicone, and polyethylene glycol. I am also having her maintain her kxtvpfu-Na-wlmi-FA, acetaminophen, ibuprofen, benzocaine-menthoL, enoxaparin, and docusate sodium. MENTAL STATUS The patient's PHQ-9 and/or MYLES-7 scores were reviewed and assessed. 12/14/2024 8:59 AM 01/16/2025 10:40 AM PHQ9 Score PHQ-9 Total Score (max 27) 2 1 Patient-reported 12/14/2024 9:03 AM 01/16/2025 10:41 AM GAD7 Score MYLSE-7 Total Score (max 21) 4 2 Patient-reported DIAGNOSTICS I have reviewed the most recent labs Blood Type: A Neg Antibody Screen: Negative Thin Prep: deferred ASSESSMENT / PLAN Problem List Items Addressed This Visit None #1 Care And Lactating #2 Depression #3 Dysmenorrhea #4 Pelvic And Perineal Pain #5 Thrombosis Deep Vein Without Delivery (HCC) #6 Velamentous Insertion Of Umbilical Cord Unspecified Trimester (HCC) #7 High Risk (HCC) #8 Type A Blood Rhesus Negative #9 Delivery Vaginal Normal Spontaneous (HCC) #10 Abnormal Ultrasound #11 Hypertension Gestational (HCC) -physical healing appropriate per patient report -continues to treat constipation and hemorrhoids, which are improving -continues on Lovenox 80 mg BID and has Vascular Med (outside hospital) follow- up mid-January -no mood concerns today - without concerns, possible plugged duct. Reviewed basics of management and symptoms of mastitis -IBCLC consult order placed per patient request -has pelvic PT appt tomorrow Follow Up: 02/12/25 for 6 week PP visit; will cancel if she is able to get PP visit with her siderographist closer to home PATIENT EDUCATION Ready to learn, barriers to learning: none; learning preferences include listening. Explained diagnosis and treatment plan; patient expressed understanding of the content. Milagro Hayes CNM ICATION SUPPORT INTERN documented in this encounter Plan of Treatment DateTypeDepartmentCare Team (Latest Contact Info)Tasibgwfodb32/24/2025 2:30 PM CSTComprehensive Visit Department of Physical Medicine and Rehabilitation in [place], [place] [address] [place] [phone] Milagro Hayes CNM [address] [place] [phone] Jelena Yi O.T., [facility] [address] [place] [phone] NameTypePriorityAssociated DiagnosesOrder ScheduleObstetrics and Gynecology - consult (clinic)Outpatient ReferralRoutine Care And Lactating Expected: 01/16/2025, Expires: 04/18/2026documented as of this encounter Visit Diagnoses Diagnosis Care And Lactating- Primary Exam (HCC) documented in this encounter Additional Health Concerns AssessmentNoted TimePHQ-9 Depression Total Score: 10:40 AM APPLICATION SUPPORT INTERN documented as of this encounter
--- OUTSIDE RECORDS SUMMARY | 2025-01-17 08:00 | XMS_ITS | Encounter Summary ---
Author Organization [facility] Address [address] [place] [address] Care Team Providers Care Aerial Tram Operator Name Role Phone Unavailable Primary Care Provider Unavailabl e Reason for Visit * Outpatient (Routine) - ClosedSpecialtyDiagnoses / ProceduresReferred By ContactReferred To ContactObstetrics and Gynecology Diagnoses Care And Lactating Milagro Hayes CNM [address] [place] [address] Phone: tel: fax: [facility] Referral IDStatusReasonStart DateExpiration DateVisits RequestedVisits [id number]/18/20255/ Encounter Details DateTypeDepartmentCare Team (Latest Contact Info)Xfuyzeagtiu95/19/2025 8:00 AM CSTLactation Consult Department of Obstetrics and Gynecology in [place], [place] [address] [place] [phone] Milagro Hayes CNM [address] [place] [phone] Care And Lactating (Primary Dx) Social History Tobacco UseTypesPacks/DayYears UsedDateSmoking Tobacco: BrbcjuHpdcniznfk2Axeo: 09/29/2022Smokeless Tobacco: NeverAlcohol UseStandard Drinks/WeekCommentsNot Currently0 (1 standard drink = 0.6 oz pure alcohol)Humiliation, Afraid, Rape, and Kick questionnaireAnswerDate RecordedWithin the last year, have you been afraid of your partner or ex-partner?Patient unable to pboeut4312/04/2024Within the last year, have you been humiliated or emotionally abused in other ways by your partner or ex-partner?Patient unable to vxphrx6912/04/2024Within the last year, have you been kicked, hit, slapped, or otherwise physically hurt by your partner or ex-partner?Patient unable to seogkz0612/04/2024Within the last year, have you been raped or forced to have any kind of sexual activity by your part ner or ex-partner?Patient unable to yikckt5012/04/2024Hunger Vital SignAnswerDate RecordedWithin the past 12 months, [...] RecordedIn the past 12 months has the [employer], gas, oil, or water company threatened to shut off services in your home?No12/04/2024Postpartum DepressionAnswerDate RecordedPHQ-9 Total Score (max 27)Housing StabilityAnswerDate RecordedWhat is your living situation today?I have a steady place to live12/04/2024CommentsNoSex and Gender InformationValueDate RecordedSex Assigned at BvabqLgckbt74/17/2025 4:09 PM CSTLegal MnuUehtlh91/17/2025 4:07 PM CSTGender YrqzzbitYpenxj73/17/2025 4:09 PM CSTSexual ZnarsseebjrOqdqveww83/ 4:09 PM CSTdocumented as of this encounter Patient Instructions * Patient Instructions* Adryan Goodson R.N., ZuleykaCChavezLChavezCChavez - 01/17/2025 8:00 AM MATHEMATICS PROFESSOR mc EMATICS PROFESSOR documented in this encounter Miscellaneous Notes * Note - Adryan Goodson R.N., ZuleykaC.LChavezCChavez - 01/17/2025 8:00 AM MATHEMATICS PROFESSOR SUBJECTIVE Ashley Almanza, julia 24 y.o., delivered a viable female infant on 01/05/2025 at 3:45 PM was seenfor a Consultation. Consultation Reason for Consult: Follow-up assessment Weigh today well above weight at 3943. Reviewed latch technique. Transfer around 60mL by weighted feeding. Answered routine questions. OBJECTIVE Maternal Breast Assessment Breast Size: Large Breast Characteristics: Symmetrical, Pendulous Breast Changes/Growth: Growth/size, Yes, Pigment changes Nipple Size: Average Nipple Type-Right: Everted Nipple Assessment-Right: Intact Nipple Type-Left: Everted Nipple Assessment-Left: Intact Assessment Has mother breastfed before?: No. . Tools: Nipple cream Infant Assessment Infant State: Active, alert Infant Suck: Rhythmic, Mature suck: 10-20 suckling bursts Mucus Membranes: Moist Latch Score: Latch: Grasps breast, tongue down, lips flanged, rhythmic sucking Audible Swallowing: Spontaneous and intermittent (24 hours old) Type of Nipple: Everted (After stimulation) Comfort (Breast/Nipple): Soft/non-tender Hold (Positioning): Full assist, teach one side, mother does other, staff holds LATCH Score: 9 Input: 10-12 feedings/24 hours Baby exclusively ? Yes Uses: both breasts Swallowing: yes Breast pump use: Not pumping Supplementation: none Infant Output: 8+ voids/24 hours, Clear 3-6+ stools/24 hours, Seedy Yellow OBJECTIVE Infant Assessment: response: content Presence of jaundice: not present ASSESSMENT/PLAN Concerns/Assessment: Questions related to include: Bottles Introduction and Types, Feeding Concerns Latch and Spitting, and Milk Supply -Storage and -Over Sleeps in: Bassinet/crib Safe Sleep Patterns: Firm surface Follow Up: { follow up plan: consult PATIENT EDUCATION Ready to learn, barriers to learning: none Explained process and plan; patient expressed understanding of the content. Adryan Goodson R.N., AbenaLChavezCChavez EMATICS PROFESSOR EMATICS PROFESSOR documented in this encounter Plan of Treatment DateTypeDepartmentCare Team (Latest Contact Info)Mmchgqallyu61/24/2025 2:30 PM CSTComprehensive Visit Department of Physical Medicine and Rehabilitation in [place], [place] [address] [place] [phone] Milagro Hayes, CN [address] [place] [phone] Jelena Yi O.T., MOT [address] [place] [phone] documented as of this encounter Visit Diagnoses Diagnosis Care And Lactating- Primary documented in this encounter Additional Health Concerns AssessmentNoted TimePHQ-9 Depression Total Score: 10:40 AM MATHEMATICS PROFESSOR documented as of this encounter
--- OUTSIDE RECORDS SUMMARY | 2025-01-17 10:00 | XMS_ITS | Encounter Summary ---
Author Organization [facility] Address [address] [place] [address] Care Team Providers Care Museum Or Zoo Director Name Role Phone Unavailable Primary Care Provider Unavailabl e Reason for Visit * Physical Therapy (Routine) - ClosedSpecialtyDiagnoses / ProceduresReferred By ContactReferred To Contact Diagnoses Care And Lactating Procedures PT or OT eval and treat (first available) Isidra Prasad M.D. [address] [place] [address] Phone: tel: fax: [facility] Referral IDStatusReasonStart DateExpiration DateVisits RequestedVisits [id number]/9/20252/ Encounter Details DateTypeDepartmentCare Team (Latest Contact Info)Svzycryfvgo66/19/2025 10:00 AM CSTComprehensive Visit Department of Physical Medicine and Rehabilitation in [place], [place] [address] [place] [phone] Isidra Prasad M.D. [address] [place] [phone] Esther Nix PLatasha., D.P.T., OCS [address] [place] [phone] Weakness Muscle (Primary Dx); Care And Lactating; Lack Of Coordination Social History Tobacco UseTypesPacks/DayYears UsedDateSmoking Tobacco: MhbdpdJtsvrydbse1Sthl: 09/29/2022Smokeless Tobacco: NeverAlcohol UseStandard Drinks/WeekCommentsNot Currently0 (1 standard drink = 0.6 oz pure alcohol)Humiliation, Afraid, Rape, and Kick questionnaireAnswerDate RecordedWithin the last year, have you been afraid of your partner or ex-partner?Patient unable to imikri8312/04/2024Within the last year, have you been humiliated or emotionally abused in other ways by your partner or ex-partner?Patient unable to spoqnr2012/04/2024Within the last year, have you been kicked, hit, slapped, or otherwise physically hurt by your partner or ex-partner?Patient unable to mvggim1112/04/2024Within the last year, have you been raped or forced to have any kind of sexual activity by your part ner or ex-partner?Patient unable to virejx2012/04/2024Hunger Vital SignAnswerDate RecordedWithin the past 12 months, [...] RecordedIn the past 12 months has the [employer], gas, oil, or water company threatened to shut off services in your home?No12/04/2024Postpartum DepressionAnswerDate RecordedPHQ-9 Total Score (max 27)Housing StabilityAnswerDate RecordedWhat is your living situation today?I have a steady place to live12/04/2024CommentsNoSex and Gender InformationValueDate RecordedSex Assigned at CajjpPteefm58/17/2025 4:09 PM CSTLegal QesUqqojl61/17/2025 4:07 PM CSTGender CwobrhqcGipdkf74/17/2025 4:09 PM CSTSexual WbtpmwvfoubRaxdhtlm95/17/2025 4:09 PM CSTdocumented as of this encounter Consult Notes * Esther Nix P.T., D.P.T., [facility] - 01/17/2025 10:00 AM CST Physical Therapy Pelvic Floor Outpatient Evaluation and Treatment SUBJECTIVE Patient's Name: Ashley Almanza Referring Provider: Isidra Prasad M.D. Medical Diagnosis: 1. Weakness Muscle 2. Care And Lactating 3. Lack Of Coordination Reason for Referral: PT Payor: [employer] / Plan: [employer] ACCESS / Product Type: PPO / Epic Visit Count: 1 PERTINENT MEDICAL / SURGICAL HISTORY: Problem List[1] Surgical History[2] OB History Para Term AB Living 1 1 1 1 SAB IAB Ectopic Molar Multiple Live Births 0 1 # Outcome Date GA Lbr Joshua/2nd Weight Sex Type Anes PTL Lv 1 Term 01/05/25 41w5d 15:43 / 01:35 3.57 kg F Vag-Spont EPI RUKHSANA Ashley Almanza is a 24 y.o. who is status post . She presents to pelvic physical therapy for assessment and development of home exercise program. Per Ob discharge summary: ???Perineal lacerations or episiotomy: First degree laceration and Periurethral laceration Lacerations were repaired with: 3-0 Vicryl ??? NOTE: Patient is seen 12 days . I have reviewed the recent medical record including notes by Isidra Prasad M.D.. Please refer to those notes for complete details and a summary of the patient's pelvic concerns. I appreciate the referral. Family or caregiver present: Yes Symptom Progression: improving Pelvic floor muscle functioning/screen: ORTHOPEDIC PAIN: Patient reports ???achy?? low back pain at her epidural site. Increased pain with leaning over. Denies radiating pain. Denies numbness and tingling. PROLAPSE: No symptoms or concerns BLADDER: Normal function no concerns BOWEL: Patient continues to take Colace . Denies straining. Denies pain with bowel movements. Denies hematochezia. Reports drinking adequate water. Breakfast is typically too can burrito and a cup of coffee. REPRODUCTIVE/SEXUAL: . Patient reports history of irregular menstrual cycle with significant dysmenorrhea. Denies previous sexual health concerns. Has not returned to intercourse . 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 Current exercise: Care of and walking around her home. Exercise goals: Returned to run (goal is 1 mi).. OBJECTIVE Review of Systems: I have briefly reviewed the Review of Systems and patient's electronic medical record. I am only responding to those symptoms which are directly relevant to the specific indication for my consultation. I recommend that the patient follow up with their primary or referring provider to pursue any other symptoms which may be of concern. Outcome scores: PFDI-20: Did not complete PFIQ-7: Did not complete PHYSICAL EXAM Pleasant female in no acute distress. Seen with her in daughter. Alert and orientated to person, place and date. Musculoskeletal examination Gait & Transfers: Normal pattern, decreased brenda Posture: Slight forward head and shoulders Squat: Able to perform full sumo squat without pain or difficulty. Lumbar Active Range of Motion: Lumbar range of motion normal. Hip Passive Range of Motion: within normal limits throughout Strength: Manual muscle testing of hip groups: Hip flexion/quadriceps (tested in supine): Not tested today Hip extension (tested with patient attempting to perform bridge): Patient is able to perform doublesupport bridge, however, does report low back pain. Hip: 4/5, left: 5/5 Hip internal rotation (tested in sitting): 5/5 Hip abduction (tested in side-lying): 4-/5 bilaterally Hip adduction (tested in side-lying): Not tested Abdominal muscle coordination/strength: Decreased overall contraction with poor activation transverse abdominus Diastasis rectus abdominus head lift: Diastasis rectus abdominus width (4.5 cm above, at, 4.5 cm below umbilicus): 3 finger width, 2 finger, 1 finger with Diastasis rectus abdominus depth: Resistance in the depth Sit Up Test: Not tested Hip screen: Examined and normal. Passive straight leg raise: negative Pelvic floor external examination * Paused to explain brief external pelvic floor muscles examination over her clothing. Patient consents to evaluation with no additional stud beef cattle farmer present. Explained each step of pelvic floor muscle assessment prior to performing. Patient given option to discontinue examination at any time. Voluntary pelvic floor muscles contraction: Present after cueing TREATMENT Treatment today consisted of: Educated on the anatomy and functions of pelvic floor musculature, including the relationship between lumbar spine, hip and pelvic floor. Discussed examination findings and plan of care. Neuromuscular Re-education using a variety of verbal and tactile cues with the goal of: Verbal and tactile cueing for correct contraction of abdominal muscles with focus on correct activation of transverse abdominus. Verbal and tactile cueing for correct contraction and coordination of transverse abdominus with pelvic floor. Educated on pelvic floor and abdominal muscle awareness and application to ADLS. Therapeutic Exercise: Instructed in and provided verbal and tactile cues during performance of the patient's home exercise program including: See [employer] link below. Demonstrated correct positioning and targeting of correct muscle groups with each movement after verbal and tactile cueing. Note at the very end of our session patient discloses coccyx pain. Additional stretches and educated on ways to relieve stress to coccyx while sitting were provided. Patient given the opportunity ask questions and these were answered to the best my ability. Home Exercise Program/Education: Patient education materials provided: The following patient education materials were provided today: [employer]: Text message version sent to patient's phone with videos included Access Code: [email or web address] URL: [email or web address] Date: 01/17/2025 Prepared by: Esther Caballero Notes Lifting: Pull in lower stomach and contract pelvic floor Kegels: 10 squeeze and relax Twice a day Suggestion: after urination morning and night Squeeze before your sneeze Sit on [employer] track If you need to schedule follow up:[phone] Exercises - Seated Lumbar Flexion Stretch - 1-2 x daily - 7 x weekly - 1 reps - 30-60 seconds hold - Supine Double Knee to Chest - 2 x daily - 7 x weekly - 30 seconds hold - Seated Piriformis Stretch with Trunk Bend - 1 x daily - 7 x weekly - 30-90 seconds hold - Supine Piriformis Stretch - 1 x daily - 7 x weekly - 60-90 sec hold - Sidelying Hip Abduction - 1 x daily - 3-5 x weekly - 10-40 reps - Clamshell - 1 x daily - 3-5 x weekly - 10-40 reps - Cat Cow - 1 x daily - 7 x weekly - 10 reps - Child's Pose Stretch - 1 x daily - 7 x weekly - Diaphragmatic Breathing in Supported Child's Pose with Pelvic Floor Relaxation - 1 x daily - 7 x weekly Response to treatment today: excellent Provided time and space for questions, all of which I answered to the best of my ability. Patient was given my business card to contact me if they should have further questions or concerns. Assessment Clinical Impression: Ashley Almanza is a 24 y.o. who is status post referred to physical therapy for assessment and development of home exercise program. Patient [place] from [facility]. Due to this distance that needs to be travel, she prefers to continue with home program. Patient has been educated that she is more than welcome to follow up in the future in pelvic physical therapy as needed. Examination findings significant for: 1. Early pelvic physical therapy assessment. 2. Weakness and lack of coordination in abdominals with diastasis recti 3. Weakness in hip abduction and on the right external rotation Rehab Potential: Ms. Almanza has Excellent potential to achieve established physical therapy goalswithin the time frame outlined below, provided she actively participates in her physical therapy treatment plan and home program. Clinical Presentation: Evolving Examination elements: 4+ Clinical Decision Making: Low complexity clinical decision making Clinical Decision Making Complexity: Low complexity clinical decision making Functional Goals and Timeframes: PT Outpatient Goals PT Goal #1: Patient will demonstrate and/or verbalize understanding of initial home exercise program PT Goal #1 to be achieved by: 01/17/25 PT Goal #1 Status: Achieved Plan Ms. Almanza was educated regarding evaluative findings, diagnosis, prognosis, potential risks and benefits of rehabilitation interventions. A collaborative effort was used to establish goals and plan of care. She was informed of her right to make decisions regarding her care, including refusal of examination or treatment or selection of services from another provider if desired. The treatment plan may be progressed or modified based upon her response to treatment. Physical Therapy Attestation Statement: Patient agrees with the plan of care and goals. Treatment Plan: Plan: Continue with current plan Start of Plan of Care: 01/17/2025 PT Frequency: One-time visit Treatment interventions may include: Treatment/Interventions: Therapeutic exercise, Neuromuscular re-education, Self- care/home management Time Spent with Patient Evaluations PT Eval - Low Complexity: 25 min Therapeutic Interventions Neuromuscular Re-Education (min): 10 min Therapeutic Exercise (min): 23 min Time Tracking Total Timed Units (min): 33 min Total Treatment Time (min): 58 min Esther Nix P.T., Triston.P.TChavez, STALIN [1] Patient Active Problem List Diagnosis Depression Dysmenorrhea Pelvic And Perineal Pain Thrombosis 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) High Risk (HCC) Type A Blood Rhesus Negative Care And Lactating Delivery Vaginal Normal Spontaneous (HCC) Abnormal Ultrasound Hypertension Gestational (HCC) [2] Past Surgical History: Procedure Laterality Date EXTRACTION TOOTH LOGY PHYSICIAN ASSISTANT documented in this encounter Plan of Treatment DateTypeDepartmentCare Team (Latest Contact Info)Htbryruxfeu50/24/2025 2:30 PM CSTComprehensive Visit Department of Physical Medicine and Rehabilitation in [place], [place] [address] [place] [phone] Milagro Hayes, NETTE [address] [place] [phone] Jelena Yi O.T., MOT [address] [place] [address] documented as of this encounter Visit Diagnoses Diagnosis Weakness Muscle- Primary Care And Lactating Lack Of Coordination documented in this encounter Additional Health Concerns AssessmentNoted TimePHQ-9 Depression Total Score: 10:40 AM ONCOLOGY PHYSICIAN ASSISTANT documented as of this encounter
--- OUTSIDE RECORDS SUMMARY | 2025-02-08 23:13 | XMS_ITS | Encounter Summary ---
Author Organization [facility] Address [address] [place] [address] Care Team Providers Care Dress Marker Name Role Phone Unavailable Primary Care Provider Unavailabl e Encounter Details DateTypeDepartmentCare Team (Latest Contact Info)Abojkpmeotf01/07/2025Results Follow-Up Department of Obstetrics and Gynecology in [place], [place] [address] [place] [phone] Samara Garcia M.D. [address] [place] [phone] Type and Screen (with Reflex Antibody ID), Antibody Identification, Erythrocytes Social History Tobacco UseTypesPacks/DayYears UsedDateSmoking Tobacco: PadtzdDxysrzvtxi1Ohyq: 09/29/2022Smokeless Tobacco: NeverAlcohol UseStandard Drinks/WeekCommentsNot Currently0 (1 standard drink = 0.6 oz pure alcohol)Humiliation, Afraid, Rape, and Kick questionnaireAnswerDate RecordedWithin the last year, have you been afraid of your partner or ex-partner?Patient unable to maijqn9012/04/2024Within the last year, have you been humiliated or emotionally abused in other ways by your partner or ex-partner?Patient unable to jqftpv6212/04/2024Within the last year, have you been kicked, hit, slapped, or otherwise physically hurt by your partner or ex-partner?Patient unable to kyirzy3312/04/2024Within the last year, have you been raped or forced to have any kind of sexual activity by your part ner or ex-partner?Patient unable to qvivfi0112/04/2024Hunger Vital SignAnswerDate RecordedWithin the past 12 months, [...] live12/04/2024CommentsYesSex and Gender InformationValueDate RecordedSex Assigned at SubsbCsmjta63/17/2025 4:09 PM CSTLegal LquCncvoa42/17/2025 4:07 PM CSTGender RzzqqiqvYyzdfm61/17/2025 4:09 PM CSTSexual SrtjesirouxTaxdoxtt23/17/2025 4:09 PM CSTdocumented as of this encounter Plan of Treatment DateTypeDepartmentCare Team (Latest Contact Info)Musatzhlbxf50/24/2025 2:30 PM CSTComprehensive Visit Department of Physical Medicine and Rehabilitation in [place], [place] [address] [place] [phone] Milagro Hayes, KEVIN [address] [place] [phone] Jelena Yi O.T., MOT [address] [place] [address] documented as of this encounter Visit Diagnoses Not on filedocumented in this encounter
--- OUTSIDE RECORDS SUMMARY | 2025-02-08 23:13 | XMS_ITS | Encounter Summary ---
Author Organization [facility] Address [address] [place] [address] Care Team Providers Care Millinery Designer Name Role Phone Unavailable Primary Care Provider Unavailabl e Encounter Details DateTypeDepartmentCare Team (Latest Contact Info)Blfknjqrvlq54/10/2025Clinical Communication Department of Urology in [place], [place] [address] [place] [address] Navi Jimenez Social History Tobacco UseTypesPacks/DayYears UsedDateSmoking Tobacco: YrdtiuZtittlqkww4Wpfx: 09/29/2022Smokeless Tobacco: NeverAlcohol UseStandard Drinks/WeekCommentsNot Currently0 (1 standard drink = 0.6 oz pure alcohol)Humiliation, Afraid, Rape, and Kick questionnaireAnswerDate RecordedWithin the last year, have you been afraid of your partner or ex-partner?Patient unable to ppopzh6412/04/2024Within the last year, have you been humiliated or emotionally abused in other ways by your partner or ex-partner?Patient unable to uwrjsz1612/04/2024Within the last year, have you been kicked, hit, slapped, or otherwise physically hurt by your partner or ex-partner?Patient unable to qwppjc9012/04/2024Within the last year, have you been raped or forced to have any kind of sexual activity by your part ner or ex-partner?Patient unable to zutzht5612/04/2024Hunger Vital SignAnswerDate RecordedWithin the past 12 months, [...] live12/04/2024CommentsNoSex and Gender InformationValueDate RecordedSex Assigned at PicfhYhlbzz12/17/2025 4:09 PM CSTLegal UrvYgukbc81/17/2025 4:07 PM CSTGender FknqnbsyPhgzhb84/17/2025 4:09 PM CSTSexual SyqamjqbvwvDvepajri43/17/2025 4:09 PM CSTdocumented as of this encounter Plan of Treatment DateTypeDepartmentCare Team (Latest Contact Info)Oqofsqpwstd95/24/2025 2:30 PM CSTComprehensive Visit Department of Physical Medicine and Rehabilitation in [place], [place] [address] [place] [address] Milagro Hayes, CNM [address] [place] [address] Jelena Yi O.T., MOT [address] [place] [phone] documented as of this encounter Visit Diagnoses Not on filedocumented in this encounter Additional Health Concerns AssessmentNoted TimePHQ-9 Depression Total Score: 8:59 AM CDT documented as of this encounter
--- OUTSIDE RECORDS SUMMARY | 2025-02-08 23:13 | XMS_ITS | Clinical Summary ---
Author Organization [facility] Address [address] [place] [address] Care Team Providers Care Supervisor Instrument Mechanics Name Role Phone [facility] [place] Pro vider Allergies No known active allergies Medications MedicationSigDispense QuantityRefillsLast FilledStart DateEnd DateStatus metoclopramide HCl (REGLAN) 10 mg tablet Indications:Nonintractable headache, unspecified chronicity pattern, unspecified headache typeTake 1 Tablet (10 mg) by mouth every 6 hours if needed for Nausea/Vomiting (or headache). 30 Tablet 06/25/2022ctive Additional Information Patient not taking.Reported on 09/14/2024 gzhmnqn-qpth-xyauu acid (PREPLUS;NATALCARE PLUS) 27 mg iron- 1 mg tablet Take 1 Tablet by mouth once daily.11/02/2023ctive Active Problems Estimated Date of TuyxwabhQvhinexiXfo84/26/2025 No known active problems Social History Tobacco UseTypesPacks/DayYears UsedDateSmoking Tobacco: FormerCigarettes Smokeless Tobacco: Never Tobacco Cessation:Counseling Given: Not Answered Alcohol UseStandard Drinks/WeekCommentsNever0 (1 standard drink = 0.6 oz pure alcohol)Social ConnectionsAnswerDate RecordedDo you often feel lonely or isolated from those around you?Financial Resource StrainAnswerDate RecordedDifficulty of Paying Living Abtskkgx268ifficulty of Paying Living ExpensesNot on file11/02/2023Food InsecurityAnswerDate RecordedDo you worry your food will run out before you are able to buy more? Transportation NeedsAnswerDate RecordedDoes lack of transportation keep you from medical appointments?oes lack of transportation keep you from work, meetings or getting things that you need?Housing StabilityAnswerDate RecordedWhat is your housing situation today?UtilitiesAnswerDate RecordedDo you have trouble paying for utilities (for example, heat, electricity, water, phone)?regnantEstimated Date of DeliveryComments Yes12/24/2024Sex and Gender InformationValueDate RecordedSex Assigned at Not on fileLegal KiaBvwuki08/27/2023 7:16 AM CDTGender IdentityNot on fileSexual OrientationNot on file Obstetrics History GravidaParaTermPretermABIABSABEctopicMultipleLivingLive Zallzx1CkevKhrpjewWM Total LaborLabor/2nd/0qzJlubviLzzLfzaVtdjKMYCapC5I7LhyaAnitQhvbkea Last Filed Vital Signs Vital SignReadingTime TakenCommentsBlood Bpkvisdd604/7707 12:48 PM CDT Ktoxi418009/14/2024 12:48 PM GDQQdlkxczdfob09.1 ??C (97 ??F)09/14/2024 12:48 PM CDTRespiratory Buko122409/14/2024 12:48 PM CDTOxygen Rvcsklabjy11%09/14/2024 12:48 PM CDTInhaled Oxygen Concentration--Vkcihd60.3 kg (185 lb 14.4 oz)09/14/2024 12:48 PM QBAFaqzar871.1 cm (5' 5)06/25/2022 8:01 AM CDTBody Mass Index-- Plan of Treatment Health MaintenanceDue DateLast DoneCommentsTetanus oknaaka3508/30/2012Depression screening for age 12+2013HIV for age 15-HPV series for age 9- 45 (1 - 3-dose series)2016Chlamydia for age 16-BMI (ht and wt on same day) for age 18+08/31/2019Hepatitis C screening for age 18-7908/31/2019 Hepatitis B series for 19+ (1 of 3 - 19+ 3-dose series)2020ap test for age 21-6503COVID-19 vaccine series ( - 2024- season)2024 Influenza Vaccine (#1)2024Pneumococcal series for age 6-49Aged OutNo longer eligible based on patient's age to complete this topicRSV vaccine for adults or (No Doses Required)Completed Insurance * Guarantor: Ashley AlmanzaAccount TypeRelation to PatientDate of BirthPhone Billing AddressPersonal/TgbkcyZrit98/02/2002 [address] [facility] [place] [address] [facility] [place] [address] Care Teams Team MemberRelationshipSpecialtyStart DateEnd Date Clinic, [address] [place] [address] [address] [facility]06/25/22
--- OUTSIDE RECORDS SUMMARY | 2025-02-08 23:13 | XMS_ITS | Encounter Summary ---
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) Social History Tobacco UseTypesPacks/DayYears UsedDateSmoking Tobacco: FcnxuzXdteuamyjx5Korn: 09/29/2022Smokeless Tobacco: NeverAlcohol UseStandard Drinks/WeekCommentsNot Currently0 (1 standard drink = 0.6 oz pure alcohol)Humiliation, Afraid, Rape, and Kick questionnaireAnswerDate RecordedWithin the last year, have you been afraid of your partner or ex-partner?Patient unable to htfzpp3112/04/2024Within the last year, have you been humiliated or emotionally abused in other ways by your partner or ex-partner?Patient unable to qishlc1812/04/2024Within the last year, have you been kicked, hit, slapped, or otherwise physically hurt by your partner or ex-partner?Patient unable to tzmipb0812/04/2024Within the last year, have you been raped or forced to have any kind of sexual activity by your part ner or ex-partner?Patient unable to yvwcyi2512/04/2024Hunger Vital SignAnswerDate RecordedWithin the past 12 months, [...] RecordedIn the past 12 months has the [facility], gas, oil, or water [employer] threatened to shut off services in your home?No12/04/2024Postpartum DepressionAnswerDate RecordedPHQ-9 Total Score (max 27)Housing StabilityAnswerDate RecordedWhat is your living situation today?I have a steady place to live12/04/2024CommentsYesSex and Gender InformationValueDate RecordedSex Assigned at QrwdiYmajcz35/17/2025 4:09 PM CSTLegal ObwMmpsvp46/17/2025 4:07 PM CSTGender UwgdgpntSogrwf82/17/2025 4:09 PM CSTSexual ZtvrbufmxexKgliivtq67/17/2025 4:09 PM CSTdocumented as of this encounter Plan of Treatment DateTypeDepartmentCare Team (Latest Contact Info)Ziovzoisrwf63/24/2025 2:30 PM CSTComprehensive Visit Department of Physical Medicine and Rehabilitation in [place], [place] [address] [place] [phone] Milagro Hayes CNM [address] [place] [phone] Jelena Yi O.T., [facility] [address] [place] [phone] documented as of this encounter Visit Diagnoses Diagnosis Post Term 40 To 42 Week (HCC)- Primary Thrombosis 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
--- OUTSIDE RECORDS SUMMARY | 2025-02-08 23:13 | XMS_ITS | Clinical Summary ---
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 [address] [facility] [address] [place] [address] Elena Romero RN ululzrfu66/23/2025 11:30 AM CDTOffice Visit [facility] [address] [facility] [address] [place] [phone] Aida Andrade MD Jones, Linette Rodriguez MD Thrombosis affecting in third trimester, cphyoldvwm52/23/2025 9:58 AM CDT - 11/21/2024 11:59 PM CDTHospital Encounter [facility] [address] [facility] [address] [place] [phone] Aida Andrade MD Jones, Linette Rodriguez MD DVT (deep venous thrombosis) (H) Discharge Disposition: Home or Self Care11/21/20242483Mmwtck01/23/2025PRE VISIT [facility] [address] [place] [phone] Elena Romero RN Ultrasound (L2- DVT in ); Consult (DVT in )11/20/2024Orders Only [facility] [place] [address] [place] [address] Lou Mon RN DVT (deep venous thrombosis) (H) (Primary Dx)11/17/2024Transcribe Orders [facility] [address] [facility] [address] [place] [phone] Taylor Lott APRN CNM related condition, antepartum (Primary Dx)11/16/2024Medical Correspondence [facility] Health Information Management [address] [facility] [address] [place] [address] Scan, Non-Provider from Last 3 Months Social History Tobacco UseTypesPacks/DayYears UsedDateSmoking Tobacco: Never Assessed Estimated Date of GhxzmgwgUmnswhtfMqo45/25/2025Based on UltrasoundSex and Gender InformationValueDate RecordedSex Assigned at BirthNot on fileLegal SexFemale 05/23/2024 12:45 AM CDTGender IdentityNot on fileSexual OrientationNot on file Last Filed Vital Signs Vital SignReadingTime TakenCommentsBlood Ywmsdkdm751/7909 10:49 AM CDT Tdkuk8046/23/2025 10:49 AM CDTTemperature--Respiratory Rate--Oxygen Saturation 98%11/21/2024 10:49 AM CDTInhaled Oxygen Concentration--Weight--Height--Body Mass Index-- Plan of Treatment Health MaintenanceDue DateLast DoneCommentsADVANCE CARE HSAOPIWO25/02/2002ANNUAL REVIEW OF HM WYWUNX46 2001CHLAMYDIA DGHGTSZWN91/02/2002YEARLY PREVENTIVE VISIT2004DTAP/TDAP/TD VACCINE (1 - Tdap)2008HIV VQQWOOXIB18/02/2017 HPV VACCINE (1 - 3-dose series)2016MENINGITIS B VACCINE (1 of 2 - Standard)2017HEPATITIS C XVYXQILDJ28/02/2020HEPATITIS B VACCINE (1 of 3 - 19+ 3-dose series)1PAP3PHQ-2 (once per calendar year) 2024MATERNAL SCREENING DNDZFRDUKI08/29/2025OBGCT (OB)09/02/2024TDAP VACCINE ()09/23/2024OVID-19 VACCINE ( season)2024 INFLUENZA VACCINE (#1)2024GROUP B STREP WWARCEQET55/27/2025ZOSTER VACCINE (1 of 2)08/31/2051MENINGITIS VACCINEAged OutNo longer eligible based on patient's age to complete this topicPNEUMOCOCCAL VACCINE: PEDIATRICS (0 to 5 YEARS) AND AT-RISK PATIENTS (6 to 49 YEARS)Aged OutNo longer eligible based on patient's age to complete this topicRSV VACCINE (No Doses Required)Completed Procedures Procedure NamePriorityDate/TimeAssociated DiagnosisComments[facility] COMPREHENSIVE KSKERRWsdzlkv83/23/2025 10:45 AM CDT DVT (deep venous thrombosis) (H) from Last 3 Months Results * [facility] Comprehensive Single (11/21/2024 10:45 AM CDT)Anatomical Region LateralityModalityUltrasoundSpecimen (Source)Anatomical Location / Laterality Collection Method / VolumeCollection TimeReceived Time11/21/2024 9:55 AM CDT Impressions 11/21/2024 4:31 PM CDT IMPRESSION 1. Sue at 35w 3d gestational age by 7 week 2 day US. 2. No anomalies commonly detected by ultrasound were identified in the detailed anatomic survey within the limits of ultrasound, however some views were suboptimal, as described above. In some views, there is mild narrowing at the aortic isthmus but this could not be replicated in other imaging including in color Doppler flow. 3. Growth parameters and estimated weight were consistent with gestational age predicted by assigned SYLVIE. EFW 25%ile. 4. The amniotic fluid volume appeared normal. 5. On transabdominal imaging the cervix appeared long and closed. 6. Normal placental cord insertion. Narrative 11/21/2024 4:31 PM CDT Comprehensive Pat. Name: CELIO ASHLEY ? Study Date: ??11/21/2024 9:55am Pat. NO: ??[id number] ?Referring ??MD: TAYLOR LOTT Site: ? Formula Mixer: Judy Lilly RDMS : ??2000 ?Age: ?? 24 INDICATION Deep vein thrombosis in the third trimester - on enoxaparin MFM Consultation METHOD Transabdominal ultrasound examination. View: Sufficient Sue . Number of fetuses: 1 DATING ? Date ?Details ?Gest. age ?SYLVIE LMP ? Cycle: LMP date not known Previous U/S ?05/08/2024 ?GA, GA 7 w + 2 d ? 35 w + 3 d ? 12/23/2024 U/S ? 11/21/2024 ? based upon AC, BPD, Femur, HC ?34 w + 5 d ? 12/28/2024 Assigned dating ?based on ultrasound (GA), selected on 11/21/2024 ?35 w + 3 d ? 12/23/2024 GENERAL EVALUATION Cardiac activity present. FHR 143 bpm. movements: present. Presentation: cephalic Placenta: Posterior, no previa > 2 cm from internal os Umbilical cord: Cord vessels: 3 vessel cord. Insertion site: normal insertion Amniotic fluid: Amount of AF: normal. MVP 5.9 cm BIOMETRY BPD ? 87.1 ?mm ? 35w 1d ?Hadlock OFD ? 108.9 ?mm ? 32w 4d ?Nicolaides HC ? 309.7 ?mm ? 34w 4d ? Hadlock Cerebellum tr ?45.9 ?mm ? -/- ?Nicolaides AC ? 305.7 ?mm ? 34w 4d ?32% ?Hadlock Femur ?66.5 ?mm ? 34w 2d ? Hadlock Humerus ? 58.2 ? mm ?33w 5d ?Fanta Weight Calculation: EFW ?2,448 ?g ?25% ? Hadlock EFW (lb,oz) ?5 lb 6 ?oz EFW by ? Hadlock ([id number]) Head / Face / Neck Biometry: Technical Account Executive ?2.6 ? mm CM ? 8.7 ? mm Nasal bone ? 10.5 ?mm ANATOMY Heart / Thorax ?Aortic arch view: dang scale suggest subjective narrowing but normal Color flow Doppler and velocity is identified The following structures appear normal: Head / Neck ? Cranium. Head size. Head shape. Lateral ventricles.Choroid plexus. Midline falx. Cavum septi pellucidi. Cerebellum. Cisterna magna. ? Parenchyma. Thalami. Vermis. Face ? Lips. Profile. Nose. Maxilla. Mandible. Orbits. Lens. Heart / Thorax ?4-chamber view. RVOT view. LVOT view. 3-vessel view.2-stniml-xujcomd view. Situs. Bicaval view. Ductal arch view. Superior vena cava. Inferior ? vena cava. Cardiac position. Cardiacsize. Cardiac rhythm. ? Right lung. Left lung. Diaphragm. Abdomen ? Abdom. wall. Stomach. Kidneys. Bladder. Liver. Bowel. Spine ?Cervical spine. Thoracic spine. Lumbar spine. Sacral spine. Extremities / Skeleton ?Arms. Right arm. Left arm. Legs. Right leg. Left leg. The following structures could not be adequately visualized: Head / Neck ? Neck. Abdomen ? Cord insertion. Extremities / Skeleton ?Right hand. Left hand. Right foot. Left foot. The following structures could not be visualized: Abdomen ? Genitals. MATERNAL STRUCTURES Cervix ?Visualized ? Appearance: Appears Closed Right Ovary ?Visualized Left Ovary ?Visualized CONSULTATION Type: [facility] [address] [place] [address] [address] [address] Main: [phone], Referring Provider: Taylor Lott, [facility] Ashley Almanza is a 24 year old at 35w3d by 7-week 2-day ultrasound here for consultation regarding acute deep vein thrombosis at 33 weeks gestation. I spent a total of 65 minutes (excluding the ultrasound interpretation) on the date of this encounter including preparing to see the patient (reviewing medical records/tests), in direct zmsu-gi-jlfy contact with the patient counseling and discussing the plan of care, documenting the visit in the electronic medical record, and communicating with other health care associate and/or care coordination. I reviewed all available records as well as additional visits located within our medical record. I also reviewed her consultation from [facility] dated 11/17/[address] Calzada. The patient was diagnosed with her first episode of deep vein thrombosis in the lower leg in early October 2024. She initially presented with left-sided back pain with no identified etiology. After a short period of time she was out for a walk and noticed that her left leg became swollen painful and purple in coloration at which time she presented and was identified with a left external iliac vein thrombosis extending to the left common femoral vein with patency of the lower IVC. The patient was started on full dose anticoagulation in the form of enoxaparin 80 mg twice daily. She has taken this medication regularly with significant improvement of her left leg symptoms. The patient has not had any prior venal thromboembolic events. During the patient's assessment with [facility], it was recommended that she remain on therapeutic enoxaparin for 3 months, due to finish February 06, 2025. This is after her estimated date of delivery. After she completes her anticoagulation in January the plan is for her to come in for acquired and inherited thrombophilia testing with the hematology team. She will then follow-up with that team 1 week after blood tests are completed. The hematology team did not identify any absolute indication for a scheduled induction of labor. However if she does not opt for induction of labor they did discuss the option for IV heparin while she is in the hospital. The patient indicates that during her consultation with hematology they did not have any firm contraindication to birthing at her local hospital. However the concern has been raised that local facilities may not be equipped to administer heparin drip on labor and delivery simply due to subspecialty access and protocols. It is important to highlight that this patient initially was planning for hydrotherapy in labor with a plan for an unmedicated natural assisted by donation specialist support. She was hoping for a water and spontaneous labor. It is not surprising that she has been frustrated by the recommended change in plans due to her recent health events. Although she is frustrated and disappointed, both she and her partner understand the rationale for changes and what she will be able to access, due to the need to prioritize her health and safety and reduce the chance of recurrent clot formation. The patient was really hoping for delivery locally. She understands that this may not be feasible and requests that delivery be coordinated at the [facility] as this is much closer to their home. She is aware of the option of delivering at the [facility] in [place]. However it is her preference to deliver closer to home if at all possible. She was hoping to with the midwifery team but does understand that her health events have complicated this possibility. At this time her priorities include a plan for an unmedicated and not to have an induction of labor unless absolutely medically required. The patient has been able to administer her Lovenox without complications and identifies no bleeding concerns. OB History Para Term AB Living 1 0 0 0 0 0 SAB IAB Ectopic Multiple Live Births 0 0 0 0 0 # Outcome Date GA Lbr Joshua/2nd Weight Sex Type Anes PTL Lv 1 Current Gynecologic History No significant reported past gynecologic history. OB records do indicate a diagnosis of a complex left ovarian cyst measuring 26 mm in this . She also has a prior diagnosis of a velamentous cord insertion, which is not identified on our ultrasound today. Past Medical History Past medical history is significant for a history of depression not on medication, rubella nonimmune, Rh-, and an elevated BMI of 33. Past Surgical History No past surgical history is identified today Medication List Prior to Admission medications Medication Sig Last Dose Taking? Auth Provider Residential End Date enoxaparin ANTICOAGULANT (LOVENOX) 80 MG/0.8ML syringe Inject 80 mg subcutaneously 2 times daily. ?? Yes Reported, Patient Allergies No known drug allergies Social History No history of substance use or substance use disorder. Patient and partner are both employed in [employer]. Family History The past medical history is significant for the patient's mother having a history of a pulmonary embolus after immobilization for surgery. There is no identified family history of inherited thrombophilia. The patient is not aware of any identified thrombophilia or a prior thrombophilia workup for her mother. Review of Systems 10-point ROS negative except as in HPI. Physical Exam BP 107/79 (BP Location: Left arm, Patient Position: Chair, Cuff Size: Adult Regular) Pulse 72 SpO2 98% Examination: Deferred Labs No laboratory evaluation was performed today. labs from [facility] were reviewed. There isno identification of an acquired or inherited thrombophilia workup done at this time in either her records or her hematology consultation. Ultrasound ultrasound today is significant for normal growth at the 25th percentile, no identifiedfetal differences, suboptimal anatomic survey, and a subjective assessment of aortic and narrowing and some still images which could not be reproduced with color or flow velocity Doppler or on other still imaging. The umbilical cord insertion site appears normal. Other Pertinent Evaluation Assessment/Counseling Ashley Almanza is a 24 year old at 35w3d with acute unprovoked deep vein thrombosis in , first event, with a family history significant for a postoperative DVT in the patient's mother. Pertinent clinical issues for this include the patient's desire to avoid regional anesthesia if possible, and a plan for a noninduced spontaneous labor. We had shared decision making and discussion today and attempts to optimize her care and outcomes in the context of unanticipated medical complications. I do think it is unlikely that the scope of practice will allow a midwifery team, including at the [facility] site, to manage labor in the context of a heparin drip. It seems most likely that given her preferences that she would be maintained on Lovenox until term, and then likely be transitioned to unfractionated heparin, if it seems likely that she would require a surgical delivery or regional anesthesia. However given her preference for unmedicated , it is also not unreasonable, both from our perspective and from hematology, to maintain her on enoxaparin until she presents in spontaneous labor. I would recommend consideration for a heparin drip during labor, with the ability to discontinue the drip for delivery given the half-life of unfractionated heparin of 30 to 90 minutesin healthy adults. At this point the patient is hoping to remain on Lovenox until she presents in spontaneous labor and the records from hematology appear to indicate that they willbe communicating with the patient's primary obstetric team to discuss a plan for IV heparin during the hospitalization. We did also discussed the significant increased risk of recurrent thrombosis in the period, and this will be less relevant in her case as she will require full dose anticoagulation, ideally to restart 12 hours after delivery if no evidence of significant vaginal bleeding, and to continue until February 06, 2025. With regards to the location of delivery I will defer to her primary obstetric team, but it is likely that she will require a transfer of care due to resources regarding hematology and anticoagulation drips at her local hospital. The patient was hoping to locally but definitely understands the need to provide optimal maternal child safety during the process. She requests that if transfer is necessary that she be transferred for a birthplan at the [facility] which is much closer to her home than our [facility]. She is aware that we are happy to manage her at our institution if preferred. I will defer to her primary nutritionists to discuss final decision on location of and to initiate the transfer of care for her at the [facility]. I would recommend thatcruz have a visit or consultation at [facility] prior to delivery to optimize her preferences including an unmedicated , and to reinforce that her donation specialist labor support can be accessible at that hospital as well. Certainly if the preferences that she is hoping for cannot be supported there we are also happy to see her for delivery in our [place] location. As a third alternative it may also be an option for her to with the obstetric team at the [facility], which would certainly be closer for them transportation [place] than our [facility]. This would require coordination with the [facility] obstetric care team. I strongly support a plan for both acquired and inherited thrombophilia evaluation after . I think it is most likely an inherited thrombophilia given her mother's history but we would support the addition of antiphospholipid antibody assessment as well. We also discussed with the patient the potential genetic inheritance of an acquired thrombophilia and the potential for her children to also be affected by this. We also discussed our recommendation for prophylactic anticoagulation in subsequent pregnancies. It is possible that this would permit her to undergo more of her preferred preferences, and a subsequent , as she would not require a heparin drip or full dose anticoagulation. She is looking forward to this possibility in a future . We also discussed the ultrasound imaging today with a potential question of subjective narrowing ofthe aorta which could not be reproduced, and some still imaging. My review of her ultrasound today has a low suspicion for coarctation of the aorta. However I would recommend a echocardiogram of the be performed, ideally prior to discharge from the hospital, given this finding. There is no identified family history of congenital cardiac conditions. Recommendations Genetic screening - Opted not to pursue genetic screening or testing for this Medications - continue therapeutic Lovenox, likely until admission for delivery given plan to avoid regional anesthesia - heparin drip in labor - will defer to hematology to help coordinate specifics at site of . Restart therapeutic Lovenox 12 hours after if no significant bleeding. Continue until 02/06/25 as planned Laboratory evaluation - acquired and inherited thrombophilia workup planned with hematology team after Maternal antepartum management - Continue with ongoing anticoagulation through the hematology team - Coordinate transfer of care to a patient preferred site as possible - I would recommend a opportunity for the patient to meet with the birthing support team prior to delivery to allow for a patient centered experience as possible with the constraints of her current health conditions. Ultrasound surveillance - No further M antepartum ultrasound is indicated - I do recommend a infant echo as noted earlier in the consultation Timing and mode of delivery - Typical delivery timing includes induction of labor at 39 weeks. However after shared decision making with the patient she strongly desires access to spontaneous labor as possible, and certainly this is not unreasonable provided she has timely access to the hospital and is able to present for initiation of a heparin drip if in early labor. Typically this strip would be discontinued when she begins pushing and resumed or injectable anticoagulation restarted, when she has gone 12 hours with no evidence of increased peripartum hemorrhage. management - It is recommended that the patient remain on therapeutic Lovenox until 02/06/2025 at which time she will follow-up with hematology for thrombophilia testing and additional counseling - We also recommended prophylactic Lovenox in all future pregnancies - She will need to discuss contraceptive options with her obstetric team given her likely estrogen associated DVT in . Thank you for allowing us to participate in the care of your patient. Please do not hesitate to contact us if you have further questions regarding the management of your patient. Sincerely, Linette Rodgers MD RECOMMENDATION Thank you for referring your patient for MFM consult & ultrasound assessment. I discussed the findings on today's ultrasound with the patient. I reviewed the limitations of ultrasound both in detecting aneuploidy and structural abnormalities. Ultrasound can routinely detect 80-90% of structural abnormalities. She has not had genetic screening this ,and she is not interested in screening today. Please see separate note for full details from today's consult visit including recommendations for ongoing management. Return to primary provider for determination of delivery site and timing, based on shared decision making between the patient and her obstetric team, in coordination with her new hematology team as well. If she is unable to at [place], she was offered coordination of care transfer by our team for delivery in [place], but they prefer to closer to home at the [facility] if possible, so this transfer would need to be arranged through her primary OB care team. If you have questions regarding today's evaluation or if we can be of further service, please contact the [facility]. anomalies may be present but not detected Procedure Note Linette Rogders MD - 11/21/2024 Comprehensive Pat. Name: ASHLEY ALMANZA Study Date: 11/21/2024 9:55am Pat. NO: [id number] Referring MD: TAYLOR LOTT Site: Formula Mixer: Judy Lilly RDMS : 2000 Age: 24 INDICATION Deep vein thrombosis in the third trimester - on enoxaparin M Consultation METHOD Transabdominal ultrasound examination. View: Sufficient Sue . Number of fetuses: 1 DATING DateDetailsGest. age SYLVIE LMPCycle: LMP date not known Previous U/S 05/08/2024 GA, GA7 w + 2 d35 w + 3 d 12/23/2024 U/S 5based upon AC, BPD, Femur, HC34 w + 5 d 12/28/2024 Assigned dating based on ultrasound (GA), selected on11/21/2024 35w + 3 d 12/23/2024 GENERAL EVALUATION Cardiac activity present. FHR 143 bpm. movements: present.Presentation: cephalic Placenta: Posterior, no previa > 2 cm from internal os Umbilical cord: Cord vessels: 3 vessel cord. Insertion site: normalinsertion Amniotic fluid: Amount of AF: normal. MVP 5.9 cm BIOMETRY BPD 87.1mm 35w 1dHadlock OFD 108.9mm 32w 4dNicolaides HC 309.7mm 34w 4dHadlock Cerebellum tr 45.9mm -/-Nicolaides AC 305.7mm 34w 4d 32%Hadlock Femur 66.5mm 34w 2dHadlock Humerus 58.2mm 33w 5dJeanty Weight Calculation: EFW 2,448g 25%Hadlock EFW (lb,oz) 5 lb 6oz EFW by Hadlock([id number]) Head / Face / Neck Biometry: Technical Account Executive 2.6mm CM 8.7mm Nasal bone 10.5mm ANATOMY Heart / Thorax Aortic arch view: dang scale suggestsubjective narrowing but normal Color flow Doppler and velocity isidentified The following structures appear normal: Head / Neck Cranium. Head size. Head shape.Lateral ventricles. Choroid plexus. Midline falx. Cavum septi pellucidi.Cerebellum. Cisterna magna. Parenchyma. Thalami. Vermis. Face Lips. Profile. Nose. Maxilla.Mandible. Orbits. Lens. Heart / Thorax 4-chamber view. RVOT view. LVOT view.3-vessel view. 6-mglgbl-mdssfxs view. Situs. Bicaval view. Ductal archview. Superior vena cava. Inferior vena cava. Cardiac position.Cardiac size. Cardiac rhythm. Right lung. Left lung.Diaphragm. Abdomen Abdom. wall. Stomach. Kidneys.Bladder. Liver. Bowel. Spine Cervical spine. Thoracic spine.Lumbar spine. Sacral spine. Extremities / Skeleton Arms. Right arm. Left arm. Legs. Rightleg. Left leg. The following structures could not be adequately visualized: Head / Neck Neck. Abdomen Cord insertion. Extremities / Skeleton Right hand. Left hand. Right foot. Leftfoot. The following structures could not be visualized: Abdomen Genitals. MATERNAL STRUCTURES Cervix Visualized Appearance: Appears Closed Right Ovary Visualized Left Ovary Visualized CONSULTATION Type: [facility] [address] [place] [id number] Main: [phone], Referring Provider: Taylor Lott, [facility] HPI Ashley lAmanza is a 24 year old at 35w3d by 7-week 2-day ultrasoundhere for consultation regarding acute deep vein thrombosis at 33 weeksgestation. I spent a total of 65 minutes (excluding the ultrasound interpretation) onthe date of this encounter including preparing to see the patient(reviewing medical records/tests), in direct runz-rb-dypk contact with the patient counseling and discussingthe plan of care, documenting the visit in the electronic medical record,and communicating with other health care associate and/or care coordination. I reviewed all available records as well as additional visitslocated within our medical record. [facility] [place]. The patient was diagnosed with her first episode of deep vein thrombosisin the lower leg in early October 2024. She initially presented withleft-sided back pain with no identified etiology. After a short period of time she was out for a walkand noticed that her left leg became swollen painful and purple incoloration at which time she presented and was identified with a left external iliac vein thrombosisextending to the left common femoral vein with patency of the lower IVC.The patient was started on full dose anticoagulation in the form of enoxaparin 80 mg twice daily. Shehas taken this medication regularly with significant improvement of herleft leg symptoms. The patient has not had any prior venal thromboembolic events. During the patient's assessment with [place] [facility], it wasrecommended that she remain on therapeutic enoxaparin for 3 months, due tofinish February 06, 2025. This is after her estimated date of delivery. After she completes her anticoagulation in January the plan is for her to come in for acquiredand inherited thrombophilia testing with the hematology team. She will then follow-up with that team 1week after blood tests are completed. The hematology team did not identifyany absolute indication for a scheduled induction of labor. However if she does not optfor induction of labor they did discuss the option for IV heparin whileshe is in the hospital. The patient indicates that during her consultation with hematology they didnot have any firm contraindication to birthing at her local hospital.However the concern has been raised that local facilities may not be equipped to administer heparindrip on labor and delivery simply due to subspecialty access andprotocols. It is important to highlight that this patient initially was planning for hydrotherapy in labor with a plan for an unmedicated natural birthassisted by donation specialist support. She was hoping for a water and spontaneous labor. It is not surprising thatcruz has been frustrated by the recommended change in plans due to herrecent health events. Although she is frustrated and disappointed, both she and her partnerunderstand the rationale for changes and what she will be able to access,due to the need to prioritize her health and safety and reduce the chance of recurrent clot formation. The patient was really hoping for delivery locally. She understands thatthis may not be feasible and requests that delivery be coordinated at [facility] as this is much closer to their home. She is aware of the option of delivering at the [facility] in [place]. However it is her preference todeliver closer to home if at all possible. She was hoping to with the midwifery team but doesunderstand that her health events have complicated this possibility. Atthis time her priorities include a plan for an unmedicated and not to have an induction oflabor unless absolutely medically required. The patient has been able toadminister her Lovenox without complications and identifies no bleeding concerns. OB History Para Term AB Living 1 0 0 0 0 0 SAB IAB Ectopic Multiple Live Births 0 0 0 0 0 # Outcome Date GA Lbr Joshua/2nd Weight Sex Type Anes PTL Lv 1 Current Gynecologic History No significant reported past gynecologic history. OB records do indicate a diagnosis of a complex left ovarian cyst measuring 26 mm in thispregnancy. She also has a prior diagnosis of a velamentous cord insertion, which is not identifiedon our ultrasound today. Past Medical History Past medical history is significant for a history of depression not on medication, rubella nonimmune, Rh-, and an elevated BMI of 33. Past Surgical History No past surgical history is identified today Medication List Prior to Admission medications Medication Sig Last Dose Taking? Auth Provider Matrix Plater End Date enoxaparin ANTICOAGULANT (LOVENOX) 80 MG/0.8ML syringe Inject 80 mg subcutaneously 2 times daily. Yes Reported, Patient Allergies No known drug allergies Social History No history of substance use or substance use disorder. Patient and partnerare both employed in [employer]. Family History The past medical history is significant for the patient's mother having ahistory of a pulmonary embolus after immobilization for surgery. There isno identified family history of inherited thrombophilia. The patient is not aware of any identified thrombophilia or a prior thrombophilia workup for her mother. Review of Systems 10-point ROS negative except as in HPI. Physical Exam BP 107/79 (BP Location: Left arm, Patient Position: Chair, Cuff Size:Adult Regular) Pulse 72 SpO2 98% Examination: Deferred Labs No laboratory evaluation was performed today. labs [facility] were reviewed. There is no identification of an acquired orinherited thrombophilia workup done at this time in either her records or her hematologyconsultation. Ultrasound ultrasound today is significant for normal growth at the 25th percentile, no identified differences, suboptimal anatomic survey,and a subjective assessment of aortic and narrowing and some still images which could not bereproduced with color or flow velocity Doppler or on other still imaging.The umbilical cord insertion site appears normal. Other Pertinent Evaluation Assessment/Counseling Ashley Almanza is a 24 year old at 35w3d with acute unprovoked deepvein thrombosis in , first event, with a family historysignificant for a postoperative DVT in the patient's mother. Pertinent clinical issues for this include the patient's desireto avoid regional anesthesia if possible, and a plan for a noninducedspontaneous labor. We had shared decision making and discussion today and attempts tooptimize her care and outcomes in the context of unanticipatedmedical complications. I do think it is unlikely that the scope of practice will allow a midwiferyteam, including at the [facility], to manage labor in the context ofa heparin drip. It seems most likely that given her preferences that she would be maintained on Lovenoxuntil term, and then likely be transitioned to unfractionated heparin, ifit seems likely that she would require a surgical delivery or regional anesthesia. However givenher preference for unmedicated , it is also not unreasonable, bothfrom our perspective and from hematology, to maintain her on enoxaparin until she presents inspontaneous labor. I would recommend consideration for a heparin dripduring labor, with the ability to discontinue the drip for delivery given the half-life of unfractionatedheparin of 30 to 90 minutes in healthy adults. At this point the patientis hoping to remain on Lovenox until she presents in spontaneous labor and the records from hematology appearto indicate that they will be communicating with the patient's primaryobstetric team to discuss a plan for IV heparin during the hospitalization. We did also discussedthe significant increased risk of recurrent thrombosis in the postpartumperiod, and this will be less relevant in her case as she will require full dose anticoagulation,ideally to restart 12 hours after delivery if no evidence of significantvaginal bleeding, and to continue until February 06, 2025. With regards to the location of delivery I will defer to her primaryobstetric team, but it is likely that she will require a transfer of caredue to resources regarding hematology and anticoagulation drips at her local hospital. The patient was hoping tobirth locally but definitely understands the need to provide optimalmaternal child safety during the process. She requests that if transfer is necessary that shebe transferred for a plan at the [facility] which is much closerto her home than our [facility]. She is aware that we are happy to manage her at our institution if preferred. I will defer to her primary nutritionists todiscuss final decision on location of and to initiate the transfer of care for her at the [facility]. I would recommend that she have a visit or consultation at [facility] to delivery to optimize her preferences including an unmedicated , and to reinforce that [facility] support can be accessible at that hospital as well. Certainlyif the preferences that she is hoping for cannot be supported there we are also happy to see her fordelivery in [place] location. As a third alternative it may alsobe an option for her to with the obstetric team at the [facility], which would certainly becloser for them transportation [place] than our [place] hospital. Thiswould require coordination with the [facility] obstetric care team. I strongly support a plan for both acquired and inherited thrombophilia evaluation after . I think it is most likely an inheritedthrombophilia given her mother's history but we would support the addition of antiphospholipid antibody assessment aswell. We also discussed with the patient the potential genetic inheritance of an acquired thrombophilia and the potential for her children to also beaffected by this. We also discussed our recommendation for prophylactic anticoagulation insubsequent pregnancies. It is possible that this would permit her toundergo more of her preferred preferences, and a subsequent , as she would not require aheparin drip or full dose anticoagulation. She is looking forward to thispossibility in a future . We also discussed the ultrasound imaging today with a potential questionof subjective narrowing of the aorta which could not be reproduced, andsome still imaging. My review of her ultrasound today has a low suspicion for coarctation of theaorta. However I would recommend a echocardiogram of the infantbe performed, ideally prior to discharge from the hospital, given this finding. There is noidentified family history of congenital cardiac conditions. Recommendations Genetic screening - Opted not to pursue genetic screening or testing for this Medications - continue therapeutic Lovenox, likely until admission for delivery givenplan to avoid regional anesthesia - heparin drip in labor - will defer to hematology to help coordinatespecifics at site of . Restart therapeutic Lovenox 12 hours afterbirth if no significant bleeding. Continue until 02/06/25 as planned Laboratory evaluation - acquired and inherited thrombophilia workup planned with hematology teamafter Maternal antepartum management - Continue with ongoing anticoagulation through the hematology team - Coordinate transfer of care to a patient preferred site as possible - I would recommend a opportunity for the patient to meet with thebirthing support team prior to delivery to allow for a patient centeredbirth experience as possible with the constraints of her current health conditions. Ultrasound surveillance - No further MFM antepartum ultrasound is indicated - I do recommend a echo as noted earlier in theconsultation Timing and mode of delivery - Typical delivery timing includes induction of labor at 39 weeks. Howeverafter shared decision making with the patient she strongly desires accessto spontaneous labor as possible, and certainly this is not unreasonable provided she hastimely access to the hospital and is able to present for initiation of aheparin drip if in early labor. Typically this strip would be discontinued when she begins pushing andresumed or injectable anticoagulation restarted, when she has gone 12hours with no evidence of increased peripartum hemorrhage. management - It is recommended that the patient remain on therapeutic Lovenox until 02/06/2025 at which time she will follow-up with hematology forthrombophilia testing and additional counseling - We also recommended prophylactic Lovenox in all future pregnancies - She will need to discuss contraceptive options with her obstetric teamgiven her likely estrogen associated DVT in . Thank you for allowing us to participate in the care of your patient.Please do not hesitate to contact us if you have further questionsregarding the management of your patient. Sincerely, Linette Rodgers MD RECOMMENDATION Thank you for referring your patient for M consult & ultrasoundassessment. I discussed the findings on today's ultrasound with the patient. Ireviewed the limitations of ultrasound both in detecting aneuploidy andstructural abnormalities. Ultrasound can routinely detect 80-90% of structural abnormalities. She has not hadgenetic screening this ,and she is not interested in screeningtoday. Please see separate note for full details from today's consult visitincluding recommendations for ongoing management. Return to primary provider for determination of delivery site and timing,based on shared decision making between the patient and her obstetricteam, in coordination with her new hematology team as well. If she is unable to at [place],she was offered coordination of care [place], but they prefer to closer to home at the [facility] if possible, so thistransfer would need to be arranged through her primary OB care team. If you have questions regarding today's evaluation or if we can be offurther service, please contact the [facility]. anomalies may be present but not detected IMPRESSION 1. Sue at 35w 3d gestational age by 7 week 2 day US. 2. No anomalies commonly detected by ultrasound were identified inthe detailed anatomic survey within the limits of prenatalultrasound, however some views were suboptimal, as described above. In some views, there is mildnarrowing at the aortic isthmus but this could not be replicated in otherimaging including in color Doppler flow. 3. Growth parameters and estimated weight were consistent withgestational age predicted by assigned SYLVIE. EFW 25%ile. 4. The amniotic fluid volume appeared normal. 5. On transabdominal imaging the cervix appeared long and closed. 6. Normal placental cord insertion. Authorizing ProviderResult TypeResult StatusJeravi FERRER Ubaldo ORDERABLESEdited Result - Final from Last 3 Months Insurance * Guarantor: Ashley Almanza EAccount TypeRelation to PatientDate of BirthPhone Billing AddressPersonal/IushcnJoqj68/02/2001 [address] [place] [id number] * Guarantor: Ashley Almanzacount TypeRelation to PatientDate of BirthPhone Billing AddressPersonal/RrgcyuVigy88/02/2001 [facility] [address] Care Teams Team MemberRelationshipSpecialtyStart DateEnd Date System, Provider Not In PCP - [facility]11/17/24
[2025-02-08 23:14] VITALS: BP 119/80; PULSE 76; RESP 18; TEMP 36.4; O2SAT 96; BMI 30.8
--- OUTSIDE RECORDS SUMMARY | 2025-02-08 23:14 | XMS_ITS | Encounter Summary ---
Author Organization [facility] Address [address] [place] [address] Care Team Providers Care Personnel Interviewer Name Role Phone Unavailable Primary Care Provider Unavailabl e Encounter Details DateTypeDepartmentCare Team (Latest Contact Info)Puoxvebvgon26/04/2025[facility] Only Department of Obstetrics and Gynecology in [place], [place] [address] [place] [phone] Milagro Hayes, [facility] [address] [place] [phone] High Risk (HCC) (Primary Dx); Thrombosis Deep Vein Without Delivery (HCC); Velamentous Insertion Of Umbilical Cord Unspecified Trimester (HCC) Social History Tobacco UseTypesPacks/DayYears UsedDateSmoking Tobacco: BkmcpcUugunyqbdk7Wsoz: 09/29/2022Smokeless Tobacco: NeverAlcohol UseStandard Drinks/WeekCommentsNot Currently0 (1 standard drink = 0.6 oz pure alcohol)Humiliation, Afraid, Rape, and Kick questionnaireAnswerDate RecordedWithin the last year, have you been afraid of your partner or ex-partner?Patient unable to pgthig4912/04/2024Within the last year, have you been humiliated or emotionally abused in other ways by your partner or ex-partner?Patient unable to adbzoy1712/04/2024Within the last year, have you been kicked, hit, slapped, or otherwise physically hurt by your partner or ex-partner?Patient unable to akqmvi9412/04/2024Within the last year, have you been raped or forced to have any kind of sexual activity by your part ner or ex-partner?Patient unable to gellrl7012/04/2024Hunger Vital SignAnswerDate RecordedWithin the past 12 months, [...] RecordedIn the past 12 months has the [employer], gas, oil, or water [employer] threatened to shut off services in your home?No12/04/2024Postpartum DepressionAnswerDate RecordedPHQ-9 Total Score (max 27)Housing StabilityAnswerDate RecordedWhat is your living situation today?I have a steady place to live12/04/2024CommentsYesSex and Gender InformationValueDate RecordedSex Assigned at KdhuwCdzlzc71/17/2025 4:09 PM CSTLegal EblXamlll46/17/2025 4:07 PM CSTGender KqpubzzvYircui97/17/2025 4:09 PM CSTSexual HbzvxnudymeTdvmdwkl54/17/2025 4:09 PM CSTdocumented as of this encounter Plan of Treatment DateTypeDepartmentCare Team (Latest Contact Info)Aryjsmxnnxi12/24/2025 2:30 PM CSTComprehensive Visit Department of Physical Medicine and Rehabilitation in [place], [place] [address] [place] [phone] Milagro Hayes CN [address] [place] [phone] Jelena Yi O.T., MOT [address] [place] [phone] documented as of this encounter Visit Diagnoses Diagnosis High Risk (HCC)- Primary Thrombosis 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
--- OUTSIDE RECORDS SUMMARY | 2025-02-08 23:14 | XMS_ITS | Clinical Summary ---
Author Organization [facility] Address [address] [place] [address] Care Team Providers Care Earthmoving Plant Operator Name Role Phone Unavailable Primary Care Provider Unavailabl e Source Comments Patient records contain information from all sites at [facility]. For routine questions regarding patient records, call [phone] during business hours, M-F 8:00 AM - 5:00 PM Central Time. Record requests for emergency care only can be directed to [phone] at any time.[facility] Allergies No known active allergies Medications * This document contains information received from the source organization and may not represent a complete record from that organization. MedicationSigDispense QuantityRefillsLast FilledStart DateEnd DateStatus wygundw-Vw-kdmv-FA 27 mg iron- 1 mg tablet Take 1 tablet by mouth daily.4Active acetaminophen (TylenoL) 500 mg capsule Take 2 capsules (1,000 mg total) by mouth every 6 (six) hours as needed for pain.5Active ibuprofen 200 mg tablet Take 3 tablets (600 mg total) by mouth every 6 (six) hours as needed for pain. 5Active benzocaine-menthoL (Dermoplast) 20-0.5 % external spray Apply 1 Application topically 4 (four) times a day as needed for pain for up to 35 days.5Active enoxaparin (Lovenox) 80 mg/0.8 mL injection Indications:Thrombosis Deep Vein Without Delivery (HCC)Inject 0.8 mL (80 mg total) under the skin 2 (two) times a day. 48 mL 5Active docusate sodium (Colace) 50 mg capsule Take 50 mg by mouth 2 (two) times a day.Active sennosides (senna) 8.6 mg tablet Take 2 tablets (17.2 mg total) by mouth at bedtime as needed for constipation for up to 35 days.Discontinued witch Roma (Tucks) 50 % pad Apply to the affected rectal area by patting up to 6 times daily or after each bowel movement.Discontinued simethicone 125 mg chewable tablet Chew 1 tablet (125 mg total) 4 (four) times a day as needed for flatulence for up to 35 days.Discontinued polyethylene glycol (Miralax) 17 gram powder packet Take 1 packet (17 g total) by mouth daily. Dissolve each 17 g dose in 240 mLs (8 ounces) of beverage.Discontinued Active Problems Patient Care Coordination No te Formatting of this note migh t be different from the original. Delivery plan: [place] chart: Care Team/nursing team: Donna (Marita/Jose) Partner name: Chandler Pertinent medical issues for management (just critical diagnoses for ): DVT @ 33weeks on Lovenox 12/05 The outside records have been scanned to [facility]. /Maternal Board plans indicated: (yes or no) Genetic testing at delivery: Antepartum: Additional consults needed/completed: Echo - Robbie - Anesthesia - Tour - Genetics - Social Work - COVID: Flu Shot: Rhogam: Given in [place] 10/09/24 Tdap: Declines 12/04/24 Rubella/Varicella status: 28 week labs: Done PHQ 9: GBS: Negative done in [place] 11/30, patient having records faxed Labor/Delivery Plan: Contraception plan: Started discussion Education: NOB - Early - Mid - Late - Done 12/04/24 ProblemNoted DateDiagnosed DateHypertension Swtevzojdxq38/07/2025Care And Bklpwplgs58/06/2025Delivery Vaginal Normal Welbhkuhjjl65/06/2025 Overview (01/05/2025): The patient was admitted to the [facility] for induction of labor. Her was complicated by DVT at 33 weeks, Rh negative blood type, velamentous cord insertion, aortic arch narrowing. Her labor course was augmented with AROM, utilizing natural methods, nitrous, and hydrotherapy for pain management. Complications of labor included protracted labor. She had a , delivering a liveborn female with weight of . Gestational age: 41w5d. occurred: Perineal lacerations or episiotomy: First degree laceration and Periurethral laceration Lacerations were repaired with: 3-0 Vicryl Contraceptive methods administered during the delivery: None Both mother and baby were in stable condition at the conclusion of the procedure. When the patient met appropriate criteria, she was transferred to the floor. She received her care at [facility]. Abnormal Ultrasound Jkekdmpb04/06/2025 Overview (01/04/2025): 11/21/2024 MW: Heart/Thorax Aortic arch view: dang scale suggest subjective narrowing but normal Color flow Doppler and velocity is identified. Recommendation for echo. Type A Blood Rhesus Bpgqtust91/24/2025 Overview (01/04/2025): 01/04/2025 MW: Rhogam given at outside facility 10/09/2024. Assessment & Plan (12/27/2024 11:26 AM CDT): -s/p MFM consult with Dr. Garcia on [...] today, will plan for BPP next week. Assessment & Plan (12/22/2024 5:31 PM CDT): -s/p MFM consult with Dr. Garcia on 12/04/24 and Initial OB with Dr. Flynn on 12/14/24 - anatomy/growth at 37 weeks: EFW 2,802 g 26%, AC 15%, Cephalic; limited anatomy views due to late gestation. Recommended repeat in 1-4 weeks. -per review of scanned records, received Rhogam 10/09/2024 -11/30/24: GBS negative -declines all vaccines\ -maternal VS normal - well being appreciated today High Risk Heotbjybb52/18/2025 Assessment & Plan (12/27/2024 11:26 AM CDT): -s/p MFM consult with Dr. Garcia on [...] today, will plan for BPP next week. Assessment & Plan (12/22/2024 5:31 PM CDT): -s/p MFM consult with Dr. Garcia on 12/04/24 and Initial OB with Dr. Flynn on 12/14/24 - anatomy/growth at 37 weeks: EFW 2,802 g 26%, AC 15%, Cephalic; limited anatomy views due to late gestation. Recommended repeat in 1-4 weeks. -per review of scanned records, received Rhogam 10/09/2024 -11/30/24: GBS negative -declines all vaccines\ -maternal VS normal - well being appreciated today Ehlpbhnkku24/06/0582Ysdohvaljqgl34/06/2025Pelvic And Perineal Pain12/04/2024 Thrombosis Deep Vein Without Qhrhoaju36/06/2025 Overview (01/04/2025): Last dose Lovenox:01/02 evening. 11/21 MFM note I strongly support a plan for both acquired and inherited thrombophilia evaluation after . I think it is most likely an inherited thrombophilia given her mother's history but we would support the addition of antiphospholipid antibody assessment as well. L external iliac DVT, diagnosed at 33 weeks of -Lovenox 80 mg BID -thrombophilia testing to be done post- Assessment & Plan (12/27/2024 11:26 AM CDT): -s/p MFM consult with Dr. Garcia on [...] today, will plan for BPP next week. Assessment & Plan (12/22/2024 5:31 PM CDT): -s/p MFM consult with Dr. Garcia on 12/04/24 and Initial OB with Dr. Flynn on 12/14/24 - anatomy/growth at 37 weeks: EFW 2,802 g 26%, AC 15%, Cephalic; limited anatomy views due to late gestation. Recommended repeat in 1-4 weeks. -per review of scanned records, received Rhogam 10/09/2024 -11/30/24: GBS negative -declines all vaccines\ -maternal VS normal - well being appreciated today Velamentous Insertion Of Umbilical Cord Unspecified Iibfeoosb61/06/2025 Overview (01/04/2025): 12/04/2024 MW: Noted on US. Assessment & Plan (12/27/2024 11:26 AM CDT): -s/p MFM consult with Dr. Garcia on [...] today, will plan for BPP next week. Assessment & Plan (12/22/2024 5:31 PM CDT): -s/p MFM consult with Dr. Garcia on 12/04/24 and Initial OB with Dr. Flynn on 12/14/24 - anatomy/growth at 37 weeks: EFW 2,802 g 26%, AC 15%, Cephalic; limited anatomy views due to late gestation. Recommended repeat in 1-4 weeks. -per review of scanned records, received Rhogam 10/09/2024 -11/30/24: GBS negative -declines all vaccines\ -maternal VS normal - well being appreciated today Resolved Problems ProblemNoted DateDiagnosed DateResolved Date38 Weeks Gestation Pain Wrist LeftPhlebitis And Thrombophlebitis Of Left Femoral Vein Encounters * This document contains information received from the source organization and may not represent a complete record from that organization. DateTypeDepartmentCare OoxzSrtozenzeyz09/19/2025 10:00 AM CSTComprehensive Visit Department of Physical Medicine and Rehabilitation in [place], [place] [address] [place] [address] Isidra Prasad M.D. Esther Nix, P.T., D.P.T., OCS Weakness Muscle (Primary Dx); Care And Lactating; Lack Of Gizjcavrxrhv52/19/2025 8:00 AM CSTLactation Consult Department of Obstetrics and Gynecology in [place], [place] [address] [place] [address] Milagro Hayes CNM Care And Lactating (Primary Dx)01/16/2025 1:00 PM CSTTelemedicine Department of Obstetrics and Gynecology in [place], [place] [address] [place] [address] Milagro Hayes CNM Care And Lactating (Primary Dx); Exam (HCC)01/10/2025 10:00 AM CSTTelemedicine Department of Obstetrics and Gynecology in [place], [place] [address] [place] [address] Isidra Prasad M.D. Ness, Leah J, R.N. Care And Lactating (Primary Dx)01/08/2025linical Communication Department of Urology in [place], [place] [address] [place] [address] Navi Jimenez 01/05/2025 4:[address] [facility], [facility], Third Floor [address] [place] [address] Boni Paz M.D. Shaniqua Cutler, SYSTEM ANALYST, PROFESSOR OF ART HISTORY, DNAP 01/04/2025 11:[address] [facility], [facility], Third Floor [address] [place] [address] Hoda Rubio M.B.B.S. 01/04/2025 2:48 PM STACKER OPERATOR - 01/07/2025 3:08 PM CSTHospital Encounter [facility], Third Floor [address] [place] [address] Dee Lazo M.D. Fagnant, Robert J, M.D. McCoy, Leah U, JULIO, KEVIN, D.Viola Ardon, JULIO, KEVIN Care And Lactating (Primary Dx); 41 Weeks Gestation (HCC) [Z3A.41]; Thrombosis Deep Vein Without Delivery (HCC) Discharge Disposition: Home or Self Care5Clinical Communication [facility], Third Floor [address] [place] [address] Esther Longo R.N. Enhmztxdchht55/04/2025[facility] Only Department of Obstetrics and Gynecology in [place], [place] [address] [place] [phone] Milagro Hayes CNM High Risk (HCC) (Primary Dx); Thrombosis Deep Vein Without Delivery (HCC); Velamentous Insertion Of Umbilical Cord Unspecified Trimester (HCC)01/01/2025 10:41 AM STACKER OPERATOR - 01/01/2025 11:59 PM CSTHospital Encounter Department of Obstetrics and Gynecology in [place], [place] [address] [place] [phone] Milagro Hayes CNM High Risk (HCC) Discharge Disposition: Home or Self Care01/01/2025[facility] Only Department of Obstetrics and Gynecology in [place], [place] [address] [place] [phone] Milagro Hayes CNM Post Term 40 To 42 Week (HCC) (Primary Dx); Thrombosis Deep Vein Without Delivery (HCC); Velamentous Insertion Of Umbilical Cord Unspecified Trimester (HCC)12/27/2024 10:00 AM CDTRoutine Department of Obstetrics and Gynecology in [place], [place] [address] [place] [address] Milagro Hayes CNM High Risk (HCC) (Primary Dx); Thrombosis Deep Vein Without Delivery (HCC); Type A Blood Rhesus Negative; Velamentous Insertion Of Umbilical Cord Unspecified Trimester (HCC)12/27/2024 9:15 AM [facility] Department of Obstetrics and Gynecology in [place], [place] [address] [place] [address] Milagro Hayes CNM Magruder, Gloria J, R.N. High Risk (HCC); Velamentous Insertion Of Umbilical Cord Unspecified Trimester (HCC)12/22/2024 3:00 PM [facility] Department of Obstetrics and Gynecology in [place], [place] [address] [place] [address] Milagro Hayes CNM High Risk (HCC) (Primary Dx); Thrombosis Deep Vein Without Delivery (HCC); Velamentous Insertion Of Umbilical Cord Unspecified Trimester (HCC); Type A Blood Rhesus Gflckmvo90/16/2025 9:30 AM CDTInitial Department of Obstetrics and Gynecology in [place], [place] [address] [place] [address] Anupama Padilla M.D. GA: [id number]/14/2024 8:30 AM CDTLactation Consult Department of Obstetrics and Gynecology in [place], [place] [address] [place] [address] Samara Garcia M.D. Education Need Obstetrics (Primary Dx)12/05/2024Results Follow-Up Department of Obstetrics and Gynecology in [place], [place] [address] [place] [address] Samara Garcia M.D. Type and Screen (with Reflex Antibody ID), Antibody Identification, Erythrocytes 12/04/2024 3:30 PM [facility] Department of Obstetrics and Gynecology in [place], [place] [address] [place] [address] Samara Garcia M.D. Ness, Leah J, R.N. High Risk (HCC) (Primary Dx)12/04/2024 3:30 PM CDTRoutine Department of Obstetrics and Gynecology in [place], [place] [address] [place] [address] Samara Garcia M.D. Thrombosis Deep Vein Acute Lower Extremity Left (HCC) (Primary Dx); Supervision Of Other High Risk Pregnancies Third Trimester (HCC)12/04/2024 2:12 PM CDT - 12/04/2024 11:59 PM CDTHospital Encounter Department of Obstetrics and Gynecology in [place], [place] [address] [place] [address] Mahogany Gómez M.D. Supervision Of Other High Risk Pregnancies Unspecified Trimester (HCC) Discharge Disposition: Home or Self Care12/04/2024 10:00 AM CDTInitial Department of Obstetrics and Gynecology in [place], [place] [address] [place] [address] Sherie Zimmerman R.N. GA: [id number]/01/2024 1:08 PM CDT - 12/01/2024 11:59 PM CDTHospital Encounter Department of Radiology, [facility], in [place], [place] [address] [place] [address] Samara Garcia M.D. Supervision Of Other High Risk Pregnancies Unspecified Trimester (HCC) Discharge Disposition: Home or Self Care11/30/2024Orders Only Department of Obstetrics and Gynecology in [place], [place] [address] [place] [address] Britta Wilson R.N. Supervision Of Other High Risk Pregnancies Unspecified Trimester (HCC) (Primary Dx)11/24/2024 2:30 PM CDTNurse Only Department of Obstetrics and Gynecology in [place], [place] [address] [place] [address] Milagro Escobar RChavezN. 11/24/2024Documentation Department of Obstetrics and Gynecology in [place], [place] [address] [place] [phone] Milagro Escobar RChavezN. 11/23/2024linical Communication Department of Obstetrics and Gynecology in [place], [place] [address] [place] [address] Prescheduling, Provider MFM Triage; Resultsfrom Last 3 Months Immunizations ImmunizationAdministration DatesNext DueRho (D) Immune Globulin (IM only) 01/06/2025 Family History Medical HistoryRelationNameCommentsNo Known ProblemsBrotherKidney transplant FatherHeart attackMaternal GrandfatherNo Known ProblemsMaternal GrandmotherNo Known ProblemsMotherArthritisPaternal GrandfatherNo Known ProblemsPaternal GrandmotherRelationNameStatusCommentsBrotherAliveFatherAliveMaternal Grandfather DeceasedMaternal GrandmotherAliveMotherAlivePaternal GrandfatherAlivePaternal GrandmotherAlive Social History Tobacco UseTypesPacks/DayYears UsedDateSmoking Tobacco: CeuhgeUomcncrvjx5Gjlm: 09/29/2022Smokeless Tobacco: Never Tobacco Cessation:Counseling Given: Not Answered Alcohol UseStandard Drinks/WeekCommentsNot Currently0 (1 standard drink = 0.6 oz pure alcohol)Humiliation, Afraid, Rape, and Kick questionnaireAnswerDate RecordedWithin the last year, have you been afraid of your partner or ex-partner?Patient unable to smxqjz6512/04/2024Within the last year, have you been humiliated or emotionally abused in other ways by your partner or ex-partner? Patient unable to cfmjbb3212/04/2024Within the last year, have you been kicked, hit, slapped, or otherwise physically hurt by your partner or ex-partner?Patient unable to lhaffk2412/04/2024Within the last year, have you been raped or forced to have any kind of sexual activity by your partner or ex-partner?Patient unable to mpujsg7812/04/2024Hunger Vital SignAnswerDate RecordedWithin the past 12 months, you worried that your food would run out before you got the money to buy more.Never true12/04/2024Within the past 12 months, the food you bought just didn't last and you didn't have money to get more.Never true12/04/2024PRAPARE - TransportationAnswerDate RecordedIn the past 12 months, has lack of transportation kept you from medical appointments or from getting medications?No 12/04/2024In the past 12 months, has lack of transportation kept you from meetings, work, or from getting things needed for daily living?No12/04/2024HC UtilitiesAnswerDate RecordedIn the past 12 months has the electric, gas, oil, or water company threatened to shut off services in your home?No12/04/2024 DepressionAnswerDate RecordedPHQ-9 Total Score (max 27) Housing StabilityAnswerDate RecordedWhat is your living situation today?I have a steady place to live12/04/2024CommentsNoSex and Gender InformationValue Date RecordedSex Assigned at OdiagIefjgd30/17/2025 4:09 PM CSTLegal SexFemale 04/17/2024 4:07 PM CSTGender SphyzvggWrkrhr73/17/2025 4:09 PM CSTSexual SwsjxfrtkqkRxmoyzdc08/17/2025 4:09 PM STACKER OPERATOR Last Filed Vital Signs Vital SignReadingTime TakenCommentsBlood Ztdamykm752/7101/10/2025 8:29 AM STACKER OPERATOR home blood pressure cuff that was mdxoqwmnpVmfbo7425/09/2025 10:00 AM STACKER OPERATOR Irhcpetuedr61.8 ??C (98.2 ??F)01/07/2025 10:00 AM CSTRespiratory Rate17 01/07/2025 10:00 AM CSTOxygen Bnocdeczlq77%01/07/2025 10:00 AM CSTInhaled Oxygen Concentration--Afihop67.8 kg (200 lb 2.8 oz)01/04/2025 5:10 PM PNRCmrdpq059.6 cm (5' 5.98)01/04/2025 5:10 PM CSTBody Mass Index32.33103/06/2024 5:10 PM STACKER OPERATOR Plan of Treatment DateTypeDepartmentCare Team (Latest Contact Info)Brmcxhvzcua62/24/2025 2:30 PM CSTComprehensive Visit Department of Physical Medicine and Rehabilitation in [place], [place] [address] [place] [phone] Milagro Hayes, KEVIN [address] [place] [phone] Jelena Yi O.T., MOT [address] [place] [address] Health MaintenanceDue DateLast DoneCommentsCervical/Vaginal Cancer Screening 2001HIV Eypgxzzjs27/02/2002Hepatitis C Ymvpstoks89/02/2002HPV Vaccines (1 - 3-dose series)2016DTaP,Tdap,and Td Vaccines (1 - Tdap)2020 Hepatitis B Vaccines (1 of 3 - 19+ 3-dose series)2020OVID-19 Vaccine (1 - 2024- season)2024Influenza Vaccine (#1)2024hlamydia and Gonorrhea Xxxvktvyb81Depression Screening (Annual PHQ-2) Zgvosbuul10/18/2025IPV VaccinesAged OutNo longer eligible based on patient's age to complete this topicPneumococcal vaccine (0-49 years)Aged OutNo longer eligible based on patient's age to complete this topic Procedures Procedure NamePriorityDate/TimeAssociated DiagnosisCommentsFETOMATERNAL BLEED, FLOW CYTO, B/JDhbxrcr89/08/2025 6:58 AM STACKER OPERATOR Oneil SANCHEZutine103/08/2024 6:58 AM STACKER OPERATOR PROTEIN/CREATININE RATIO, RANDOM, ZBTYHRrlco71/07/2025 7:17 AM STACKER OPERATOR CREATININE WITH EGFR, S/ZDnjlc0401/05/2025 7:13 AM STACKER OPERATOR CBC WITHOUT DIFFERENTIAL, MEqsoe7901/05/2025 7:13 AM STACKER OPERATOR ASPARTATE AMINOTRANSFERASE (AST), S/HIwayl5501/05/2025 7:13 AM STACKER OPERATOR ANESTHESIA REGIONAL HGIGIJzbhbfk30/08/2024 4:18 AM STACKER OPERATOR ANTIBODY MWYHAEVANQYKVJMhscjnm20/06/2025 5:41 PM STACKER OPERATOR TYPE AND HJJXOOJpoynkc47/06/2025 5:41 PM STACKER OPERATOR CBC WITHOUT DIFFERENTIAL, ADhxphru80/06/2025 5:41 PM STACKER OPERATOR SYPHILIS IGG W/ REFLEX, EIA, SWfapmfr93/06/2025 5:41 PM STACKER OPERATOR US OB BIOPHYSICAL PROFILE WITHOUT NON-STRESS SINGLETONRAD - Routine (most inpatients and all outpatients)01/01/2025 11:09 AM STACKER OPERATOR High Risk (HCC) NONSTRESS TEST - TSBARGMMDZhivycc43/29/2025 9:15 AM CDT High Risk (HCC) Velamentous Insertion Of Umbilical Cord Unspecified Trimester (HCC) PH, WKxqmyno19/06/2025 5:23 PM CDT DIPSTICK, EFaudzqf89/06/2025 5:23 PM CDT OSMOLALITY, SSknnzhy89/06/2025 5:23 PM CDT MICROSCOPIC YNSSBXSTXMxmifaz06/06/2025 5:23 PM CDT URINALYSIS WITH KPSVNJATKUGWudstru59/06/2025 5:23 PM CDT High Risk (HCC) CHLAMYDIA/GONORRHOEAE AMPLIFIED JBEDirecee70/06/2025 5:23 PM CDT High Risk (HCC) BACTERIAL CULTURE, AEROBIC + SUSC, YYJWVLoxdtrs20/06/2025 5:23 PM CDT High Risk (HCC) ANTIBODY XNKULQITTDXIAZLfzviuf65/06/2025 5:17 PM CDT TYPE AND WMKLNWNycwlzk05/06/2025 5:17 PM CDT High Risk (HCC) US OB ADVANCED LEVEL SINGLETONRAD - Routine (most inpatients and all outpatients)12/04/2024 3:29 PM CDT Supervision Of Other High Risk Pregnancies Unspecified Trimester (HCC) US LOWER EXTREMITY VEINS LEFTRAD - Routine (most inpatients and all outpatients) 12/01/2024 2:07 PM CDT Supervision Of Other High Risk Pregnancies Unspecified Trimester (HCC) from Last 3 Months Results * RhIG Naima (01/06/2025 6:58 AM STACKER OPERATOR)ComponentValueRef RangeTest Method Analysis TimePerformed AtPathologist SignatureRhIG RosettePositiveNegative 01/06/2025 8:37 AM CSTDTLComment:See FMBP - Fetomaternal Bleed Flow Cytometry for bleed volume.Specimen (Source)Anatomical Location / Laterality Collection Method / VolumeCollection TimeReceived TimeBlood (Blood, Venous) 01/06/2025 6:58 AM CST01/06/2025 7:56 AM STACKER OPERATOR Narrative Authorizing ProviderResult TypeResult StatusGayanet Brdashaw CNMLAB BLOOD BANK TEST ORDERABLESFinal ResultPerforming OrganizationAddressCity/State/ZIP Code Phone Number [facility] [address] [place] [address], [place] [facility] [address] [place] [address] * Fetomaternal Bleed, Flow Cytometry (01/06/2025 6:58 AM STACKER OPERATOR)ComponentValueRef RangeTest MethodAnalysis TimePerformed AtPathologist SignatureFetal-Maternal BleedNegative0 - 3.75 mL01/06/2025 2:13 PM CSTDTLRh Immune Globulin1.0dose 01/06/2025 2:13 PM HIHNBEQqkwgqh65 ml of red blood cells is equivalent to 30 ml of whole blood. ??The use of RhIG should be determined based on local protocols and standard blood bank Rh testing. ??Calculations used to determi ne the RhIG dose can be found in the [facility] Lab Test Catalog. Due to differential RBC densities, aliquoting into or out of a sample tube can adversely affect the results. 01/06/2025 2:13 PM CSTDTLComment: ----ADDITIONAL INFORMATION---- This test was developed and its performance characteristics determined by [facility] in a manner consistent with CLIA requirements. This test has not been cleared or approved by the U.S. Food and Drug Administration. Specimen (Source)Anatomical Location / LateralityCollection Method / Volume Collection TimeReceived PxzsXlyuq81/08/2025 6:58 AM CST01/06/2025 8:46 AM STACKER OPERATOR Narrative Authorizing ProviderResult TypeResult StatusGayanet Bradshaw CNMLAB BLOOD NON ADD-ONFinal ResultPerforming OrganizationAddressCity/State/[place] [address], [place] [address] * (ABNORMAL) Protein/Creatinine Ratio, Random, Urine (01/05/2025 7:17 AM STACKER OPERATOR) ComponentValueRef RangeTest MethodAnalysis TimePerformed AtPathologist SignatureProtein, Total, Random, U30mg/dL01/05/2025 8:40 AM CSTDTLCreatinine, Random, W32360 - 326 mg/dL01/05/2025 8:40 AM CSTDTLProtein/Creatinine Ratio 0.19(H)<0.18 mg/mg01/05/2025 8:40 AM CSTDTLSpecimen (Source)Anatomical Location / LateralityCollection Method / VolumeCollection TimeReceived Time Urine (Urine, Catheter)01/05/2025 7:17 AM CST01/05/2025 7:40 AM STACKER OPERATOR Narrative Authorizing ProviderResult TypeResult StatusCanjerrell Escobar SYSTEM ANALYST, CNMLAB URINE ORDERABLESFinal ResultPerforming OrganizationAddressCity/State/ZIP CodePhone Number [address] [address], [address] [address] * (ABNORMAL) CBC without Differential (01/05/2025 7:13 AM STACKER OPERATOR) Only the most recent of2 resultswithin the time period is included. ComponentValueRef RangeTest MethodAnalysis TimePerformed AtPathologist Signature Ncrvipykaw87.711.6 - 15.0 g/dL01/05/2025 7:39 AM XYSYMRUolublzyiz82.335.5 - 44.9 %01/05/2025 7:39 AM CSTDTLErythrocytes4.663.92 - 5.13 x10(12)/L103/07/2024 7:39 AM OSEIHBHGH69.078.2 - 97.9 fL01/05/2025 7:39 AM CSTDTLRBC Distrib Width13.812.2 - 16.1 %01/05/2025 7:39 AM CSTDTLPlatelet Bxnxk969736 - 371 x10(9)/L103/07/2024 7:39 AM ICWSXNZmvjcxvlpe97.8(H)3.4 - 9.6 x10(9)/L103/07/2024 7:39 AM CSTDTL Specimen (Source)Anatomical Location / LateralityCollection Method / Volume Collection TimeReceived TimeBlood (Blood, Venous)01/05/2025 7:13 AM STACKER OPERATOR 01/05/2025 7:26 AM STACKER OPERATOR Narrative Authorizing ProviderResult TypeResult StatusCanjerrell Escobar SYSTEM ANALYST, CNMLAB BLOOD ADD-ONFinal ResultPerforming OrganizationAddressCity/State/ZIP CodePhone Number [facility] C[facility] [address] [place] [address], [facility] [address] [place] [address] * AST (Aspartate Aminotransferase) (01/05/2025 7:13 AM STACKER OPERATOR)ComponentValueRef RangeTest MethodAnalysis TimePerformed AtPathologist SignatureAspartate Aminotransferase (AST), S128 - 43 U/L103/07/2024 8:07 AM CSTDTLSpecimen (Source)Anatomical Location / LateralityCollection Method / VolumeCollection TimeReceived TimeBlood (Blood, Venous)01/05/2025 7:13 AM CST01/05/2025 7:24 AM STACKER OPERATOR Narrative Authorizing ProviderResult TypeResult StatusCanjerrell Escobar SYSTEM ANALYST, CNMLAB BLOOD ADD-ONFinal ResultPerforming OrganizationAddressCity/State/ZIP CodePhone Number [facility] [address] [address] [address] [place] [address] * Creatinine with Estimated GFR (01/05/2025 7:13 AM STACKER OPERATOR)ComponentValueRef Range Test MethodAnalysis TimePerformed AtPathologist SignatureCreatinine0.690.59 - 1.04 mg/dL01/05/2025 8:07 AM CSTDTLEstimated GFR (eGFR)>90>=60 mL/min/BSA 01/05/2025 8:07 AM CSTDTLComment: Estimated GFR calculated using the 2020 CKD_EPI creatinine equation. Specimen (Source)Anatomical Location / LateralityCollection Method / Volume Collection TimeReceived TimeBlood (Blood, Venous)01/05/2025 7:13 AM STACKER OPERATOR 01/05/2025 7:24 AM STACKER OPERATOR Narrative Authorizing ProviderResult TypeResult StatusCandi Marcie Escobar SYSTEM ANALYST, CNMLAB BLOOD ADD-ONFinal ResultPerforming OrganizationAddressCity/State/ZIP CodePhone Number [id number] [place] [phone] * LDA ANE EPIDURAL CATHETER (01/05/2025 4:18 AM STACKER OPERATOR) Narrative Hoda Rubio M.B.B.S. - 01/05/2025 4:18 AM STACKER OPERATOR Hoda Rubio M.B.B.S. 01/05/2025 4:47 AM Regional Block Date/Time: 01/05/2025 4:18 AM Performed by: Hoda Rubio M.B.B.SChavez Authorized by: Boni Paz M.D. ?? Location: [...] with (+) CSF on Intentional Dural Puncture. Stanislaus OTONIEL at 6 cm, catheter threaded without [...] fellow participated in the procedure, and the communications consultant was present for the entire procedure. Authorizing ProviderResult TypeResult StatusAamil Leif Paz M.D.PROCEDURE/MINOR SURGICAL ORDERABLESEdited Result - Final * Syphilis IgG w/ Reflex, EIA, S (RST/FLA) (01/04/2025 5:41 PM STACKER OPERATOR)Component ValueRef RangeTest MethodAnalysis TimePerformed AtPathologist Signature Syphilis IgG w/ Reflex, EIA, EYjcwmuncsmvZiwyinetkii48/07/2025 5:41 PM CSTSDSC Comment: No serologic evidence of infection with T. pallidum (syphilis). ??Repeat testing may be considered in patients with suspected acute or primary syphilis in 2-4 weeks. For additional information on interpretation of the syphilis reverse algorithm and results, see: [email or web address] Specimen (Source)Anatomical Location / LateralityCollection Method / Volume Collection TimeReceived TimeBlood (Blood, Venous)01/04/2025 5:41 PM STACKER OPERATOR 01/05/2025 7:23 AM STACKER OPERATOR Narrative Authorizing ProviderResult TypeResult StatusShahida Patel D.O.LAB MICROBIOLOGY - BLOOD ORDERABLESFinal ResultPerforming OrganizationAddressCity/State/ZIP Code Phone Number [facility] [address] [place] [address] [facility] [address] [place] [address] * Antibody Identification, Erythrocytes (01/04/2025 5:41 PM STACKER OPERATOR) Only the most recent of2 resultswithin the time period is included. ComponentValueRef RangeTest MethodAnalysis TimePerformed AtPathologist Signature Antibody IdentificationNo antibody wyytxkuw49/06/2025 8:00 PM CSTDTLSpecimen (Source)Anatomical Location / LateralityCollection Method / VolumeCollection TimeReceived Time01/04/2025 5:41 PM CST01/04/2025 5:51 PM STACKER OPERATOR Narrative [facility] - 01/04/2025 8:00 PM STACKER OPERATOR Specimen Information: Specimen ID: [id number] Specimen Collection Start Date: 01/04/2025 ??5:41 PM Specimen Received Date: 01/04/2025 ??5:51 PM Specimen ID: [id number] Specimen Collection Start Date: 01/04/2025 ??5:41 PM Specimen Received Date: 01/04/2025 ??5:51 PM Authorizing ProviderResult TypeResult StatusShahida Patel D.O.LAB BLOOD BANK TEST ORDERABLESFinal ResultPerforming OrganizationAddressCity/State/ZIP Code Phone Number [facility] [address] [place] [address] * Type and Screen (with Reflex Antibody ID) (01/04/2025 5:41 PM STACKER OPERATOR) Only the most recent of2 resultswithin the time period is included. ComponentValueRef RangeTest MethodAnalysis TimePerformed AtPathologist Signature ABORhA NegNot vnhhhgyrui93/06/2025 7:15 PM CSTETRMAntibody ScreenCANCELED 01/04/2025 7:18 PM CSTETRMComment: REVISED RESULTS See antibody identification test. Type & Screen Tfpkuxuste03/09/2025 23:5901/04/2025 7:15 PM CSTETRMTesting LocationRochester DEFAULT 01/04/2025 5:51 PM CSTETRMSpecimen (Source)Anatomical Location / Laterality Collection Method / VolumeCollection TimeReceived TimeBlood (Blood, Venous) 01/04/2025 5:41 PM CST01/04/2025 5:51 PM STACKER OPERATOR Narrative Authorizing ProviderResult TypeResult StatusShahida Patel D.O.LAB BLOOD BANK TEST ORDERABLESEdited Result - FinalPerforming OrganizationAddressCity/State/ZIP CodePhone Number [address] [place] [address] * US OB Biophysical Profile without Non-Stress Schofield (01/01/2025 11:09 AM STACKER OPERATOR)Anatomical RegionLateralityModalityBody, Ultrasound OB RST LOS, Ultrasound ARZ LOSN/AUltrasoundSpecimen (Source)Anatomical Location / Laterality Collection Method / VolumeCollection TimeReceived Time01/01/2025 10:46 AM STACKER OPERATOR Narrative 01/01/2025 11:29 AM STACKER OPERATOR Exam Type ========= OB Biophysical Profile Indication [...] Follow-up as clinically indicated Authorizing ProviderResult TypeResult Missy PERDUEMIMG OB US PROCEDURESFinal Result * nonstress test - schofield (12/27/2024 9:15 AM CDT) Narrative Wil Nelson M.D. - 12/27/2024 9:15 AM CDT Wil Nelson M.D. 12/28/2024 7:44 AM STAS Almanza, a at 40w3d with an Estimated [...] home. Joan Orosco R.N. Authorizing ProviderResult TypeResult Missy PERDUEMOB GYNE ORDERABLESFinal Result * Dipstick, Urine (12/04/2024 5:23 PM CDT)ComponentValueRef RangeTest Method Analysis TimePerformed AtPathologist SignatureHemoglobin, QL, UNegative Fobtnhgj59/06/2025 6:30 PM CDTDTLLeukocyte Esterase, UNegativeNegative 12/04/2024 6:30 PM CDTDTLNitrite, WQnojmjxhOkyygeim39/06/2025 6:30 PM CDTDTL Ketone, UNegativeNegative mg/dL12/04/2024 6:30 PM CDTDTLGlucose, UNegative Negative mg/dL12/04/2024 6:30 PM CDTDTLSpecimen (Source)Anatomical Location / LateralityCollection Method / VolumeCollection TimeReceived TimeUrine 12/04/2024 5:23 PM CDT1 5:39 PM CDT Narrative Authorizing ProviderResult TypeResult StatusSamara Garcia M.D.LAB URINE ORDERABLESFinal ResultPerforming OrganizationAddressCity/State/ZIP CodePhone Number [facility] [address] [place] [address], [place] [address] * Microscopic Automated (12/04/2024 5:23 PM CDT)ComponentValueRef RangeTest MethodAnalysis TimePerformed AtPathologist VaigintelHudixwcwojHoeomh90/06/2025 6:30 PM CDTDTLRBCNone Seen<3 /hpf12/04/2024 6:30 PM CDTDTLWBCNone Seen/hpf 12/04/2024 6:30 PM CDTDTLComment: ----REFERENCE VALUE---- <4 (Males) <11 (Females) Specimen (Source)Anatomical Location / LateralityCollection Method / Volume Collection TimeReceived RlfqTeoqn96/06/2025 5:23 PM CDT1 5:39 PM CDT Narrative Authorizing ProviderResult TypeResult StatusSamara Garcia M.D.LAB URINE ORDERABLESFinal ResultPerforming OrganizationAddressCity/State/[facility] CodePhone Number [facility] [address] [place] [address], [place] [address] * Bacterial Culture, Aerobic + Susceptibility, Urine (12/04/2024 5:23 PM CDT) ComponentValueRef RangeTest MethodAnalysis TimePerformed AtPathologist SignatureUrine CultureUrogenital microbiota, susceptibilities not performed per laboratory criteria. 12/05/2024 12:47 PM CDTDTLSpecimen (Source)Anatomical Location / Laterality Collection Method / VolumeCollection TimeReceived TimeUrine (Urine, Midstream) 12/04/2024 5:23 PM CDT1 6:29 PM CDTComment:Specimen Source Site: Urine Narrative Authorizing ProviderResult TypeResult StatusSamara Garcia M.D.LAB MICROBIOLOGY - GENERAL ORDERABLESFinal ResultPerforming OrganizationAddressCity/State/ZIP Code Phone Number [facility] [address] [place] [address], [place] [address] * pH, Urine (12/04/2024 5:23 PM CDT)ComponentValueRef RangeTest MethodAnalysis TimePerformed AtPathologist SignaturepH, U6.14.5 - 8.010 6:21 PM CDT DTLSpecimen (Source)Anatomical Location / LateralityCollection Method / Volume Collection TimeReceived EbhiEgfxt13/06/2025 5:23 PM CDT1 5:39 PM CDT Narrative Authorizing ProviderResult TypeResult StatusSamara Garcia M.D.LAB URINE ORDERABLESFinal ResultPerforming OrganizationAddressCity/State/ZIP CodePhone Number [facility] [address] [place] [address], [facility] [address] [place] [address] * Chlamydia / Gonorrhoeae Amplified RNA (12/04/2024 5:23 PM CDT)ComponentValue Ref RangeTest MethodAnalysis TimePerformed AtPathologist SignatureSourceUrine, Urine, First Xuvvdg8612/05/2024 5:04 PM CDTSDSCChlamydia trachomatis amplified CBXKbyhrkotOaclaqjg84/07/2025 5:04 PM CDTSDSCSourceUrine, Urine, First Voided 12/05/2024 5:04 PM CDTSDSCNeisseria gonorrhoeae amplified RNANegativeNegative 12/05/2024 5:04 PM CDTSDSCSpecimen (Source)Anatomical Location / Laterality Collection Method / VolumeCollection TimeReceived TimeUrine (Urine, First Voided)12/04/2024 5:23 PM CDT1 9:19 PM CDT Narrative Authorizing ProviderResult TypeResult StatusSamara Garcia M.D.LAB MICROBIOLOGY - GENERAL ORDERABLESFinal ResultPerforming OrganizationAddressCity/State/ZIP Code Phone Number [facility] [address] [place] [address] [facility] [address] [place] [address] * Osmolality, Urine (12/04/2024 5:23 PM CDT)ComponentValueRef RangeTest Method Analysis TimePerformed AtPathologist SignatureOsmolality, [id number] - 1150 mOsm/kg12/04/2024 6:21 PM CDTDTLSpecimen (Source)Anatomical Location / LateralityCollection Method / VolumeCollection TimeReceived TimeUrine 12/04/2024 5:23 PM CDT1 5:39 PM CDT Narrative Authorizing ProviderResult TypeResult StatusSamara Garcia M.D.LAB URINE ORDERABLESFinal ResultPerforming OrganizationAddressCity/State/ZIP CodePhone Number [facility] [address] [place] [address], [facility] [address] [place] [address] * Urinalysis, with Microscopic: Urine, Midstream (12/04/2024 5:23 PM CDT) ComponentValueRef RangeTest MethodAnalysis TimePerformed AtPathologist SignatureSourceUrine, Urine, Ypkzrektt65/06/2025 5:39 PM CDTDTLColor, UYellow 12/04/2024 5:39 PM CDTDTLClarity, PYmlsw2012/04/2024 5:39 PM CDTDTLProtein, U8 <26 mg/dL12/04/2024 6:40 PM CDTDTLProtein/Osmolality0.21<0.42 ratio12/04/2024 6:40 PM CDTDTLPredicted 24 HR Protein, U161<229 mg/24 h1 6:40 PM CDT DTLPredicted Iukrh74-485xc/24 h1 6:40 PM CDTDTLSpecimen (Source) Anatomical Location / LateralityCollection Method / VolumeCollection Time Received TimeUrine (Urine, Midstream)12/04/2024 5:23 PM CDT1 5:39 PM CDT Narrative Authorizing ProviderResult TypeResult StatusSamara Garcia M.D.LAB URINE ORDERABLESFinal ResultPerforming OrganizationAddressCity/State/ZIP CodePhone Number [facility] [address] [place] [address], [facility] DTL [facility] [address] [place] [address] * US OB Advanced Level Schofield (12/04/2024 3:29 PM CDT)Anatomical Region LateralityModalityBody, Ultrasound OB RST LOS, Ultrasound ARZ LOSN/AUltrasound Specimen (Source)Anatomical Location / LateralityCollection Method / Volume Collection TimeReceived Time12/04/2024 2:41 PM CDT Narrative 12/04/2024 5:24 PM CDT Exam Type ========= OB Detailed Anatomy Indication ======== growth History ====== OB History ? 1. Para 0 Method ====== Transabdominal ultrasound examination. View: Suboptimal view limited by , maternal scanning characteristics, position, late gestational age ========= Schofield Dating ====== ? Date ?Details ?Gest. age ?SYLVIE Stated SYLVIE ? 37 w + 1 d ?12/24/2024 U/S ?12/04/2024 ? based upon AC, BPD, Femur ? 36 w + 2 d ?12/30/2024 Assigned dating based on stated SYLVIE, selected on 12/04/2024 ? 37 w + 1 d?12/24/2024 General Evaluation Cardiac activity present. FHR 131 bpm. Presentation: Cephalic Placenta: Placental site: left lateral Umbilical cord: Cord vessels: Unable to assess. Insertion site: velamentous insertion Amniotic fluid: MVP 4.5 cm Biometry BPD ?90.9 ?mm ?36w 6d ??59% HC ? 324.4 ?? mm ?-0.4SD Cerebellum tr ?48.0 ?mm APAD ? 94.8 ?mm ?35w 5d TAD ?104.3 ?? mm ?38w 5d AC ? 313.2 ?? mm ?35w 2d ??15% Femur ?71.3 ?mm ?36w 4d ??33% Humerus ?59.6 ?mm ?34w 4d ??15% HC / AC ?1.04 Weight Calculation: EFW ?2,802 ?? g ? 26% ? Hadlock EFW (lb,oz) ?6 lb 3 ??oz EFW by ? Hadlock (NDO-EP-FH-FL) Head / Face / Neck Biometry: Senior Sales Executive ? 5.4 ? mm CM ? 7.7 ? mm ?53% Extremities / Bony Struc Biometry: Radius ? 49.7 ?mm ?38w 5d ??55% Ulna ? 55.6 ?mm ?34w 6d ??15% FL / BPD ? 0.78 FL / HC ?0.22 FL / AC ?0.23 Anatomy The following structures appear normal: Head / Neck ? Cranium. Cerebellum. Heart / Thorax 3-vessel view. 6-yfmaom-jugludu view. Situs. Bicaval view. ? Diaphragm. Abdomen Stomach. Kidneys. Bladder. Extremities / Skeleton ? Arms. Right upper leg. Left upper leg. The following structures could not be adequately visualized: Head / Neck ?Lateral ventricles. Choroid plexus. Midline falx. Cisterna magna. Vermis. Face Coronal face. Nasal bone. Tongue. Maxilla. Mandible. Orbits. Lens. Heart / Thorax ?4-chamber view: .. LVOT view. Abdomen ? Abdom. wall. Right renal artery. Left renal artery. Spine Cervical spine: Osseous components appear normal; however, the skin line was not well seen.. Thoracic spine: Osseous components appear ? normal; however, the skin line was not well seen.. Lumbar spine: Osseous components appear normal; however, the skin line was not well ? seen.. Sacral spine: Osseous components appear normal; however, the skin line was not well seen.. Extremities / Skeleton Hands. Right hand. Legs. Feet. Right lower leg. Left lower leg. The following structures could not be visualized: Head / Neck ?Cavum septi pellucidi. ? Neck. Nuchal fold. Face ?Lips. Profile. Nose. Heart / Thorax RVOT view. Aortic arch view. Ductal arch view. Interventricular septum. Abdomen ?Cord insertion. Extremities / Skeleton Left hand. Maternal Structures Cervix ? Cervical length 3.9 cm Limited views of the adnexa and ovaries without obvious abnormalities. Impression ========= Schofield intrauterine . Cephalic presentation. No anomalies detected. However, the anatomy survey remains incomplete due to position and advanced gestational age. Recommend follow up in 1-4 weeks for completion of anatomy survey (see anatomy section of this report for images needing completion). Normal estimated weight (26%). Subjectively normal amniotic fluid volume. Placenta left lateral - the images were too limited to assess the distance between the placenta andthe internal cervical os and too limited to screen for vasa previa. As per water hydrant installer's report patient declined transvaginal ultrasound. Procedure Note Fox Chávez M.D. - 12/04/2024 Exam Type ========= OB Detailed Anatomy Indication ======== growth History ====== OB History 1. Para 0 Method ====== Transabdominal ultrasound examination. View: Suboptimal view limited by , maternal scanning characteristics, position, late gestational age ========= Schofield Dating ====== Date DetailsGest. age SYLVIE Stated SYLVIE 37 w + 1 d1 U/S 12/04/2024 based upon AC, BPD, Femur 36w + 2 d 12/30/2024 Assigned dating based on stated SYLVIE, selected on w + 1 d 12/24/2024 General Evaluation Cardiac activity present. FHR 131 bpm. Presentation: Cephalic Placenta: Placental site: left lateral Umbilical cord: Cord vessels: Unable to assess. Insertion site:velamentous insertion Amniotic fluid: MVP 4.5 cm Biometry BPD 90.9 mm 36w 6d 59% HC 324.4 mm -0.4SD Cerebellum tr 48.0 mm APAD 94.8 mm 35w 5d TAD 104.3 mm 38w 5d AC 313.2 mm 35w 2d 15% Femur 71.3 mm 36w 4d 33% Humerus 59.6 mm 34w 4d 15% HC / AC 1.04 Weight Calculation: EFW 2,802 g 26% Hadlock EFW (lb,oz) 6 lb 3 oz EFW by Hadlock (LFR-HU-KC-FL) Head / Face / Neck Biometry: Senior Sales Executive 5.4 mm CM 7.7 mm 53% Extremities / Bony Struc Biometry: Radius 49.7 mm 38w 5d 55% Ulna 55.6 mm 34w 6d 15% FL / BPD 0.78 FL / HC 0.22 FL / AC 0.23 Anatomy The following structures appear normal: Head / Neck Cranium. Cerebellum. Heart / Thorax 3-vessel view. 5-zdsbwl-juwcxsi view. Situs. Bicaval view. Diaphragm. Abdomen Stomach. Kidneys. Bladder. Extremities / Skeleton Arms. Right upper leg. Left upper leg. The following structures could not be adequately visualized: Head / Neck Lateral ventricles. Choroid plexus. Midline falx. Cisternamagna. Vermis. Face Coronal face. Nasal bone. Tongue. Maxilla. Mandible. Orbits. Lens. Heart / Thorax 4-chamber view: .. LVOT view. Abdomen Abdom. wall. Right renal artery. Left renalartery. Spine Cervical spine: Osseous components appear normal; however, the skin linewas not well seen.. Thoracic spine: Osseous components appear normal; however, the skin line was not well seen.. Lumbarspine: Osseous components appear normal; however, the skin line was notwell seen.. Sacral spine: Osseous components appear normal;however, the skin line was not well seen.. Extremities / Skeleton Hands. Right hand. Legs. Feet. Right lower leg.Left lower leg. The following structures could not be visualized: Head / Neck Cavum septi pellucidi. Neck. Nuchal fold. Face Lips. Profile. Nose. Heart / Thorax RVOT view. Aortic arch view. Ductal arch view.Interventricular septum. Abdomen Cord insertion. Extremities / Skeleton Left hand. Maternal Structures Cervix Cervical length 3.9 cm Limited views of the adnexa and ovaries without obvious abnormalities. Impression ========= Schofield intrauterine . Cephalic presentation. No anomalies detected. However, the anatomy survey remainsincomplete due to position and advanced gestational age. Recommendfollow up in 1-4 weeks for completion of anatomy survey (see anatomy section of this report forimages needing completion). Normal estimated weight (26%). Subjectively normal amniotic fluid volume. Placenta left lateral - the images were too limited to assess the distance between the placenta and the internal cervical os and too limited toscreen for vasa previa. As per water hydrant installer's report patient declined transvaginal ultrasound. Authorizing ProviderResult TypeResult StatusCristelai Peggy Gómez M.D.IMAdenike OB US PROCEDURESFinal Result * US Lower Extremity Veins Left (12/01/2024 2:07 PM CDT)Anatomical Region LateralityModalityLower Extremity, Ultrasound RST LOS, Ultrasound ARZ LOS, Ultrasound FLA LOSLeftUltrasoundSpecimen (Source)Anatomical Location / LateralityCollection Method / VolumeCollection TimeReceived Time Impressions 12/01/2024 2:41 PM CDT 1. Subacute thrombus is partially visualized in the left external iliac vein, likely similar to the prior exam dated 11/07/2024. 2. No acute thrombus in the visualized veins of the left lower extremity. Narrative 12/01/2024 2:41 PM CDT EXAM: US LOWER EXTREMITY VEINS LEFT Exam performed with color and spectral Doppler analysis. COMPARISON: Outside ultrasound dated 11/07/2024 FINDINGS: LEFT: IVC: Only the upper portion is seen. ??The visualized portion is patent. ?? External iliac: Partially seen. ??Occlusive thrombus is partially seen, likely unchanged. ?? Common Femoral Vein: Negative. Completely compressible. ? Profunda Femoral Vein: Negative. Femoral Vein: Negative. Slow flow, but completely compressible. ?? Popliteal Vein: Negative. Gastrocnemius Veins: Negative where seen. Soleal Veins: Negative where seen. Posterior Tibial Veins: Negative where seen. Peroneal Veins: Negative where seen. Great Saphenous Vein: Negative where seen. Small Saphenous Vein: Not evaluated. Popliteal Fossa: Negative. Other: n/a Information on venous thrombosis and management can be found on the [email or web address].it site. Link [email or web address] Procedure Note Virgie Ramsay M.D., Ph.D. - 12/01/2024 EXAM: US LOWER EXTREMITY VEINS LEFT Exam performed with color and spectral Doppler analysis. COMPARISON: Outside ultrasound dated 11/07/2024 FINDINGS: LEFT: IVC: Only the upper portion is seen. The visualized portion is patent. External iliac: Partially seen. Occlusive thrombus is partially seen,likely unchanged. Common Femoral Vein: Negative. Completely compressible. Profunda Femoral Vein: Negative. Femoral Vein: Negative. Slow flow, but completely compressible. Popliteal Vein: Negative. Gastrocnemius Veins: Negative where seen. Soleal Veins: Negative where seen. Posterior Tibial Veins: Negative where seen. Peroneal Veins: Negative where seen. Great Saphenous Vein: Negative where seen. Small Saphenous Vein: Not evaluated. Popliteal Fossa: Negative. Other: n/a Information on venous thrombosis and management can be found on theStkr.it site. [email or web address] IMPRESSION: 1. Subacute thrombus is partially visualized in the left external iliacvein, likely similar to the prior exam dated 11/07/2024. 2. No acute thrombus in the visualized veins of the left lowerextremity. Authorizing ProviderResult TypeResult StatusSamara Garcia M.D.IMG US PROCEDURES Final Result from Last 3 Months Insurance * Guarantor: Ashley AlmanzaAccount TypeRelation to PatientDate of BirthPhone Billing AddressPersonal/RfibpuGrnd85/02/2001 [address] [facility] [place]eth LeijaSURESH [id number] Advance Directives For more information, please contact: [phone] * Full Code (Latest Code Status on File) Date ActivatedDate LoedvvjosgeCvhlcxij40/7/2025 7:22 PM01/07/2025 5:13 PMQuestion AnswerCommentsFull Code:* Not Discussed Due to:* Not medically appropriate
--- OUTSIDE RECORDS SUMMARY | 2025-02-08 23:14 | XMS_ITS | Encounter Summary ---
Author Organization [facility] Address [address] [place] [id number] Care Team Providers Care Warehouse Operations Associate Name Role Phone Unavailable Primary Care Provider Unavailabl e Reason for Visit * ReasonOnset PvtjKkcfbmbjOgqjvclfaxgy43/06/2025 Encounter Details DateTypeDepartmentCare Team (Latest Contact Info)Ecfkbdbgrlv02/06/2025linical Communication [facility], Third Floor [address] [place] [phone] Esther Longo RChavezNChavez [address] [place] [phone] Contractions Social History Tobacco UseTypesPacks/DayYears UsedDateSmoking Tobacco: ByerzwOwzblpvlas4Hfzg: 09/29/2022Smokeless Tobacco: NeverAlcohol UseStandard Drinks/WeekCommentsNot Currently0 (1 standard drink = 0.6 oz pure alcohol)Humiliation, Afraid, Rape, and Kick questionnaireAnswerDate RecordedWithin the last year, have you been afraid of your partner or ex-partner?Patient unable to qgtchw1712/04/2024Within the last year, have you been humiliated or emotionally abused in other ways by your partner or ex-partner?Patient unable to gnpbrl6712/04/2024Within the last year, have you been kicked, hit, slapped, or otherwise physically hurt by your partner or ex-partner?Patient unable to kthtae2812/04/2024Within the last year, have you been raped or forced to have any kind of sexual activity by your part ner or ex-partner?Patient unable to bgipmf5212/04/2024Hunger Vital SignAnswerDate RecordedWithin the past 12 months, [...] RecordedIn the past 12 months has the [employer], gas, oil, or water company threatened to shut off services in your home?No12/04/2024Postpartum DepressionAnswerDate RecordedPHQ-9 Total Score (max 27)Housing StabilityAnswerDate RecordedWhat is your living situation today?I have a steady place to live12/04/2024CommentsYesSex and Gender InformationValueDate RecordedSex Assigned at ZdzbnOzgicn09/17/2025 4:09 PM CSTLegal RwhJzgvta16/17/2025 4:07 PM CSTGender HlyjdijjSzywxy52/17/2025 4:09 PM CSTSexual OqcsxatijpeQvfhagdr03/17/2025 4:09 PM CSTdocumented as of this encounter Miscellaneous Notes * Telephone Encounter - Esther Longo, R.N. - 01/04/2025 1:51 PM CST Pts stating they are on the way to triage for eval. Pt has been xavier since 9 pm lasteve and the last couple of hours the contractions have intensified and are coming about every 1 min. He states she is coping well by breathing through the contractions. They are about 50 min away. O COMPUTER SPECIALIST documented in this encounter Plan of Treatment DateTypeDepartmentCare Team (Latest Contact Info)Tmkvnkwashv30/24/2025 2:30 PM CSTComprehensive Visit Department of Physical Medicine and Rehabilitation in [place], [place] [address] [place] [phone] Milagro Hayes, CN [address] [place] [phone] Jelena Yi O.T., [facility] [address] [place] [phone] documented as of this encounter Visit Diagnoses Not on filedocumented in this encounter Additional Health Concerns AssessmentNoted TimePHQ-9 Depression Total Score: 8:59 AM CDT documented as of this encounter
--- NOTE | 2025-02-08 23:36 | ED.GENADULT ---
HPI - General Adult General Chief complaint: Lower Extremity Swelling <Sofie Gaffney MD - Last Filed: 02/08/25 23:39> Stated complaint: DVT, swelling in left leg <Sofie Gaffney MD - Last Filed: 02/08/25 23:39> Time Seen by Provider: 02/08/25 23:12 <Sofie Gaffney MD - Last Filed: 02/08/25 23:39> Source: patient <Sofie Gaffney MD - Last Filed: 02/08/25 23:39> Mode of arrival: ambulatory <Sofie Gaffney MD - Last Filed: 02/08/25 23:39> Limitations: no limitations <Sofie Gaffney MD - Last Filed: 02/08/25 23:39> History of Present Illness HPI narrative: 24-year-old female coming in today concerned about leg swelling. Patient has a history of DVT in the left lower extremity and just finished her 3 month course of Lovenox on 02/04. She noticed that her legs started becoming swollen and feeling tight yesterday. She denies any chest pain or shortness of breath. No coughing. Patient is approximately 5 weeks . States that mother had a DVT postoperatively at some point in her life. Patient is currently undergoing a workup for hypercoagulable state. She is currently taking doxycycline for mastitis, no other medications. <Sofie Gaffney MD - Last Filed: 02/08/25 23:39> Related Data Home medications: Home Medications ?Medication ?Instructions ?Recorded ?Confirmed vits 168-iron 27 mg-folic cap PO DAILY 01/23/25 01/23/25 acid 800 mcg-omega3 235 mg capsule (One-A-Day -1) docusate sodium 100 mg capsule 100 mg PO DAILY 02/08/25 02/08/25 (Colace) Previous Rx's ?Medication ?Instructions ?Recorded dicloxacillin 500 mg capsule 500 mg PO QID 7 days #28 caps 02/05/25 <Sofie Gaffney MD - Last Filed: 02/08/25 23:39> Allergies/adverse reactions: Allergies Allergy/AdvReac Type Severity Reaction Status Date / Time No Known Drug Allergies Allergy Verified 02/08/25 23:28 <Sofie Gaffney MD - Last Filed: 02/08/25 23:39> Review of Systems Status of ROS: Reports: 10 or more systems reviewed and unremarkable except as noted in History and below <Sofie Gaffney MD - Last Filed: 02/08/25 23:39> [facility] Medical History: Medical History Velamentous insertion of umbilical cord ?O43.129 - Velamentous insertion of umbilical cord, unspecified trimester (ICD-10) Depression ?F32.A - Depression, unspecified (ICD-10) Pelvic pain ?R10.2 - Pelvic and perineal pain (ICD-10) Dysmenorrhea ?N94.6 - Dysmenorrhea, unspecified (ICD-10) Peralta's neuroma of right foot ?G57.61 - Lesion of plantar nerve, right lower limb (ICD-10) <Sofie Gaffney MD - Last Filed: 02/08/25 23:39> Surgical History: Surgical History Barry teeth extracted ?K08.409 - Partial loss of teeth, unspecified cause, unspecified class (ICD-10) <Sofie Gaffney MD - Last Filed: 02/08/25 23:39> Family History: Family History Grandfather Heart disease Mother High blood pressure FH: mental illness Blood clot in vein Father Kidney disease Liver disease <Sofie Gaffney MD - Last Filed: 02/08/25 23:39> Social History: Social History Narrative: SOCIAL? ? Education: High School ? 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 works at [employer] Lives with: Chandler Pets: 3 Cats, Chandler changes the litter box Abuse: Denies past ? Unable to assess current, partner present? ? Special Diet: Denies? ? Ok with a blood transfusion: yes? ? Culture or latter-day beliefs: denies? RISK FACTORS? ? Exercise Times/wk: 5 days week cardio and strength training? ? Depression/Anxiety: yes depression? Previous Treatments was on medications for about a year ? Therapy has done in past Feels mood is stable at this time. MYLES: 3 PHQ 9: 1? ? Seat Belt Use: Routinely ? Smoking: Denies past/present? ?Smoked 2 years, 3 cigarettes per day and vaping Alcohol/day: Denies while ? ? when not 4-5 a month Caffeine: Coffee before 1-2 cups? ? Drug Use: Denies past/present? ? THC use in past, quit about 2 years ago What is your current living situation?: I presently have a place to live Problems where you live: no known problems In the past 12 months, utilities in danger of being shut off: no In past 12 months, lack of transportation kept you from medical appts, meetings, work, or getting things needed for daily living: no In the past 12 mos, have been you worried that your food would run out before you had money to buy more?: never true In the past 12 mos, the food you bought just didn't last and you didn't have money to buy more?: never true Smoking Status: Never smoker Do you use any of these nicotine containing products: None How often do you have a drink containing alcohol: never How often do you have six or more drinks on one occasion: Never AUDIT-C Alcohol total score: 0 Non-prescribed substance use: denies use How often does anyone, including family, friends and others, physically hurt you: never How often does anyone, including family, friends and others, insult or talk down to you: never How often does anyone, including family, friends and others, threaten you with harm: never How often does anyone, including family, friends and others, scream or curse at you: never service: No <Sofie Gaffney MD - Last Filed: 02/08/25 23:39> Exam Narrative: Exam Narrative: Well-nourished well-developed patient in no acute distress. Alert and oriented. Answers questions appropriately. Mood and affect are appropriate. Thoughts are goal oriented and rational. No tangential or magical thinking noted. Patient speaks in full sentences without needing to catch her breath. HEENT: Normocephalic atraumatic. Pupils are equally round reactive to light. Extraocular muscles are intact. Conjunctivae are moist without any icterus noted. Moist mucous membranes. Cardiovascular: Heart is regular rate and rhythm S1 and S2 are present without any murmurs. Lungs: Clear to auscultation bilaterally no wheezes rhonchi or rales are appreciated. Extremities: Bilateral lower extremities are without pitting edema. Normal DP and PT pulses. No significant skin changes. Negative Homans sign. Skin: Well perfused without any obvious rashes. <Sofie Gaffney MD - Last Filed: 02/08/25 23:39> Const: Vital Signs, click to edit/add: Vital Signs - 24 hr 02/08/25 23:14 Temperature 97.6 F Pulse Rate [Right Pulse Oximeter] 76 Respiratory Rate 18 Blood Pressure [Ri ght Upper Arm] 119/80 Pulse Oximetry 96 Oxygen Delivery Me thod Room Air <Sofie Gaffney MD - Last Filed: 02/08/25 23:39> Vital Signs, click to edit/add: Vital Signs - 24 hr 02/08/25 23:14 Temperature 97.6 F Pulse Rate [Right Pulse Oximeter] 76 Respiratory Rate 18 Blood Pressure [Ri ght Upper Arm] 119/80 Pulse Oximetry 96 Oxygen Delivery Me thod Room Air <Chris Gray MD - Last Filed: 02/09/25 01:18> Course Course ED Course: Given patient's recent history and concerns, I did go ahead and order a lower extremity ultrasound. Care will be transferred to oncoming physician. <Sofie Gaffney MD - Last Filed: 02/08/25 23:39> Vital Signs Vital signs: Initial Vital Signs Temperature 97.6 F 02/08/25 23:14 Temperature Source Temporal Artery Scan 02/08/25 23:14 Pulse Rate 76 02/08/25 23:14 Pulse Rhythm Regular 02/08/25 23:14 Respiratory Rate 18 02/08/25 23:14 Blood Pressure 119/80 02/08/25 23:14 Blood Pressure Mean 93 02/08/25 23:14 Blood Pressure Position Sitting 02/08/25 23:14 Pulse Oximetry 96 02/08/25 23:14 Oxygen Delivery Method Room Air 02/08/25 23:14 Vital Signs Temperature 97.6 F 02/08/25 23:14 Pulse Rate 76 02/08/25 23:14 Respiratory Rate 18 02/08/25 23:14 Blood Pressure 119/80 02/08/25 23:14 Pulse Oximetry 96 02/08/25 23:14 Oxygen Delivery Method Room Air 02/08/25 23:14 Temperature 97.6 F 02/08/25 23:14 Pulse Rate 76 02/08/25 23:14 Respiratory Rate 18 02/08/25 23:14 Blood Pressure 119/80 02/08/25 23:14 Pulse Oximetry 96 02/08/25 23:14 Oxygen Delivery Method Room Air 02/08/25 23:14 <Sofie Gaffney MD - Last Filed: 02/08/25 23:39> Initial Vital Signs Temperature 97.6 F 02/08/25 23:14 Temperature Source Temporal Artery Scan 02/08/25 23:14 Pulse Rate 76 02/08/25 23:14 Pulse Rhythm Regular 02/08/25 23:14 Respiratory Rate 18 02/08/25 23:14 Blood Pressure 119/80 02/08/25 23:14 Blood Pressure Mean 93 02/08/25 23:14 Blood Pressure Position Sitting 02/08/25 23:14 Pulse Oximetry 96 02/08/25 23:14 Oxygen Delivery Method Room Air 02/08/25 23:14 Vital Signs Temperature 97.6 F 02/08/25 23:14 Pulse Rate 76 02/08/25 23:14 Respiratory Rate 18 02/08/25 23:14 Blood Pressure 119/80 02/08/25 23:14 Pulse Oximetry 96 02/08/25 23:14 Oxygen Delivery Method Room Air 02/08/25 23:14 Temperature 97.6 F 02/08/25 23:14 Pulse Rate 76 02/08/25 23:14 Respiratory Rate 18 02/08/25 23:14 Blood Pressure 119/80 02/08/25 23:14 Pulse Oximetry 96 02/08/25 23:14 Oxygen Delivery Method Room Air 02/08/25 23:14 <Chris Gary MD - Last Filed: 02/09/25 01:18> Medical Decision Making MDM Narrative Medical decision making narrative: Patient is a 24-year-old woman who is 4 weeks from her 1st . She is having swelling in her left leg and has history of DVT. Ultrasound of the lower extremities negative for DVT today. This point reassurance is offered the can follow-up with your primary care doctor. She has no discomfort no bruising and swelling is minimal. <Chris Gray MD - Last Filed: 02/09/25 01:18> Discharge Plan Discharge Clinical Impression: Swelling <Sofie Gaffney MD - Last Filed: 02/08/25 23:39> Patient Disposition: Home, Self-Care <Sofie Gaffney MD - Last Filed: 02/08/25 23:39> Condition: Stable <Sofie Gaffney MD - Last Filed: 02/08/25 23:39> Instructions: Edema (ED) <Sofie Gaffney MD - Last Filed: 02/08/25 23:39> Additional Instructions: Continue current care Advance activity as tolerated Follow-up with your doctor as needed. <Sofie Gaffney MD - Last Filed: 02/08/25 23:39> Activity Level: No Restrictions <Sofie Gaffney MD - Last Filed: 02/08/25 23:39> No Restrictions <Chris Gray MD - Last Filed: 02/09/25 01:18> Discharge Diet: Regular <Sofie Gaffney MD - Last Filed: 02/08/25 23:39> Regular <Chris Gray MD - Last Filed: 02/09/25 01:18> Prescriptions: No Action One-A-Day -1 27 mg iron- 800 mcg-235 mg capsule PO DAILY docusate sodium [Colace] 100 mg capsule 100 mg PO DAILY dicloxacillin 500 mg capsule 500 mg PO QID 7 Days Qty: 28 0RF <Sofie Gaffney MD - Last Filed: 02/08/25 23:39> Follow Up/Referrals: Provider,Not a Local [Primary Care Provider, Family Practice] <Sofie Gaffney MD - Last Filed: 02/08/25 23:39> Stand Alone Forms: MyHealth Info Instructions <Sofie Gaffney MD - Last Filed: 02/08/25 23:39>
--- NOTE | 2025-02-09 | CRLHL7_ITS ---
For Patients: As a result of the Century Cures Act, medical imaging exams and procedure reports are released immediately into your electronic medical record. You may view this report before your referring provider. If you have questions, please contact your health care provider. INDICATION: Left leg swelling TECHNIQUE: Ultrasound venous duplex left lower extremity. Real-time stone-scale (B mode 2D), color Doppler, and spectral Doppler imaging were performed with compression and augmentation. COMPARISON: 11/07/2024 FINDINGS: Deep vein: The left common femoral, femoral, popliteal, and visualized calf veins are fully compressible, demonstrate normal color flow, and normal response to mechanical augmentation. The Duplex Doppler waveforms are normal in appearance. Superficial vein: The visualized greater saphenous and superficial veins of the leg and calf are unremarkable. Soft tissue: No masses or cysts are identified. No adenopathy is seen. IMPRESSION: 1. No sonographic evidence of acute deep venous thrombosis seen. Dictated by: Clifford Pinzon MD @ 02/09/2025 01:09:07 (Electronically Signed)
== END 2025-02-09 01:28 | disposition home or self-care (01) ==
PROVIDERS: Emergency Provider Family Medicine
DX: R22.43 Localized swelling, mass and lump, lower limb, bilateral (principal)
CPT/HCPCS: 93971; 99283

== ENCOUNTER 2025-02-20 12:32 | Outpatient (CLI) | payer BC, SELFPAY ==
[2025-02-27 10:19] LABS: Pap Test Digital Imaging Done
== END 2025-02-20 12:33 | disposition home or self-care (01) ==
LOC: NFLDREF 12:32
PROVIDERS: Visit Provider Advanced Practice Midwife
DX: Z12.4 Encounter for screening for malignant neoplasm of cervix (principal)
CPT/HCPCS: 87624; 87625; 88141; 88142; 88175